=== PATIENT | male | born 1980 | race Caucasian/White ===

== ENCOUNTER 2016-12-31 11:48 | Inpatient (IN) | payer OTHER ==
[2016-12-31 13:33] VITALS: BMI 27.1
--- NOTE | 2016-12-31 16:13 | HP ---
COWS - Scale Resting Pulse: 0= [place] 80 or Below Sweatin=Flushed/Facial Moisture Restless Observation: 3= Extraneous Movement Pupil Size: 2= Moderately Dilated Bone or Joint Aches: 2= Severe Diffuse Aches Runny Nose/ Eye Tearin= Runny Nose/Eyes GI Upset > 30mins: 3= Vomiting/Diarrhea Tremor Observation: 2= Slight Tremor Visible Yawning Observation: 2= >3x During Session Anxiety or Irritability: 2=Irritable/Anxious Goose Flesh Skin: 0=Smooth Skin COWS Score: 20 CIWA Score - CIWA Score Nausea/Vomitin Muscle Tremors: 3 Anxiety: 3 Agitation: 3 Paroxysmal Sweats: 2 Orientation: 0-Oriented Tacttile Disturbances: 2-Mild Itch/Numbness/Burn Auditory Disturbances: 2-Mild Harshness/Frighten Visual Disturbances: 2-Mild Sensitivity Headache: 2-Mild CIWA-Ar Total Score: 22 Admission ROS BHS - HPI Chief Complaint: i need help to stop using heroin,alcohol,xanax and cocaine Allergies/Adverse Reactions: Allergies Allergy/AdvReac Type Severity Reaction Status Date / Time No Known Allergies Allergy Verified 12/31/16 16:14 History of Present Illness: this 36 years old male with heroin,alcohol,xanax,cocaine dependence,seeking help to stop ,last detox in [facility] 11/30 stated not completed,just stay for 1 day kidney stones insomnia nicotine dependence fx of lumbar spine ,fx both jaws longest period of sobriety 1 year Exam Limitations: No Limitations - Ebola screening Have you traveled outside of the country in the last 21 days: No Have you been sick,other than usual withdrawal symptoms: No - Review of Systems Constitutional: Chills, Diaphoresis, Loss of Appetite, Malaise, Night Sweats, Weakness, Unintentional Wgt. Loss EENT: reports: Tearing, Nose Congestion Respiratory: reports: No Symptoms reported Cardiac: reports: Palpitations GI: reports: Diarrhea, Nausea, Vomiting, Abdominal cramping : reports: No Symptoms Reported Musculoskeletal: reports: Joint Pain, Muscle Pain, Joint Stiffness Integumentary: reports: Dryness Endocrine: reports: No Symptoms Reported Hematology: reports: No Symptoms Reported Psychiatric: reports: Judgement Intact, Mood/Affect Appropiate, Orientated x3 ( insomnia), other Patient History - Patient Medical History Hx Anemia: No Hx Asthma: No Hx Chronic Obstructive Pulmonary Disease (COPD): No Hx Cancer: No Hx Cardiac Disorders: No Hx Congestive Heart Failure: No Hx Hypertension: No Hx Hypercholesterolemia: No Hx Pacemaker: No HX Cerebrovascular Accident: No Hx Seizures: No Hx Dementia: No Hx Diabetes: No Hx Gastrointestinal Disorders: No Hx Liver Disease: No Hx Genitourinary Disorders: No Hx Sexually Transmitted Disorders: No Hx Renal Disease (ESRD): No Hx Thyroid Disease: No Hx Human Immunodeficiency Virus (HIV): No (never been tested) Hx Hepatitis C: No Hx Depression: No Hx Suicide Attempt: No Hx Bipolar Disorder: No Hx Schizophrenia: No Other Medical History: no suicidal,no homicidal - Patient Surgical History Past Surgical History: Yes Hx Neurologic Surgery: No Hx Cataract Extraction: No Hx Cardiac Surgery: No Hx Lung Surgery: No Hx Breast Surgery: No Hx Breast Biopsy: No Hx Abdominal Surgery: No Hx Appendectomy: No Hx Cholecystectomy: No Hx Genitourinary Surgery: No Hx Section: No Hx Orthopedic Surgery: No Other Surgical History: bilateral fx of mandible in 2001 - PPD History Previous Implant?: Yes Implanted On Prior [facility] Admission?: Yes Date: 04/04/12 PPD to be Administered?: Yes - Smoking Cessation Smoking history: Current every day smoker Have you smoked in the past 12 months: Yes Aproximately how many cigarettes per day: 40 Hx Chewing Tobacco Use: No Initiated information on smoking cessation: Yes 'Breaking Loose' booklet given: 12/31/16 - Substance & Tx. History Hx Alcohol Use: Yes Hx Substance Use: Yes Substance Use Type: Alcohol, Cocaine, Heroin, Tranquilizers Hx Substance Use Treatment: Yes ([facility] 11/30 not completed) - Substances Abused Heroin Route: Injection Frequency: Daily Amount used: 50 BAGS Age of first use: 30 Date of Last Use: 12/31/16 Alcohol Route: Oral Frequency: Daily Amount used: 1 LITER COGNAC Age of first use: 13 Date of Last Use: 12/30/16 Alprazolam (Xanax) Route: Oral Frequency: Daily Amount used: 4-6MG Age of first use: 34 Date of Last Use: 12/31/16 Cocaine Route: Injection Frequency: Daily Amount used: 1 AND 1/2 GRAM Age of first use: 15 Date of Last Use: 12/30/16 Family Disease History - Family Disease History Family Disease History: Other: Brother (dsa ) Admission Physical Exam [facility] - Vital Signs Vital Signs: Vital Signs - 24 hr 12/31/16 13:29 Temperature 98.4 F Pulse Rate 76 Respiratory 18 Rate Blood Pressure 138/76 - Physical General Appearance: Yes: Moderate Distress, Tremorous, Irritable, Sweating, Anxious HEENTM: Yes: Normal ENT Inspection, LBUNA, Pharynx Normal Respiratory: Yes: Lungs Clear, Normal Breath Sounds, No Respiratory Distress Neck: Yes: Within Normal Limits, Supple, Trachea in good position Breast: Yes: Within Normal Limits Cardiology: Yes: Within Normal Limits, Regular Rhythm, Regular Rate, S1, S2 Abdominal: Yes: Within Normal Limits, Normal Bowel Sounds, Non Tender, Flat, Soft Genitourinary: Yes: Within Normal Limits Back: Yes: Muscle Spasm Musculoskeletal: Yes: full range of Motion, Back pain, Joint Stiffness, Muscle Pain Extremities: Yes: Normal Range of Motion, Tremors Neurological: Yes: honey processor II-XII NML intact, Alert, Motor Strength 5/5, Normal Mood /Affect Integumentary: Yes: Dry, Track Perdue Lymphatic: Yes: Within Normal Limits - Diagnostic (1) Opioid dependence with withdrawal Current Visit: Yes Status: Acute (2) Alcohol dependence with uncomplicated withdrawal Current Visit: Yes Status: Acute (3) Uncomplicated sedative, hypnotic, or anxiolytic withdrawal Current Visit: Yes Status: Acute (4) Cocaine dependence Current Visit: Yes Status: Active (5) s/p surgery of bilateral fx of mandible Current Visit: No Status: Active (6) Low back pain Current Visit: Yes Status: Chronic (7) Closed L5 vertebral fracture Current Visit: Yes Status: Chronic (8) Insomnia Current Visit: Yes Status: Acute (9) Nicotine dependence Current Visit: Yes Status: Acute Cleared for Admission [facility] - Detox or Rehab [facility] Level of Care: Medically Managed Detox Regimen/Protocol: Methadone/Valium [facility] Breath Alcohol Content Breath Alcohol Content: 0 Urine Drug Screen - Results Drug Screen Negative: No Urine Drug Screen Results: JETT-Cocaine, OPI-Opiates, BZO-Benzodiazepines, MTD- Methadone
[2016-12-31] MEDS ORDERED: guaiFENesin/D-METHORPHAN HB 10 ML UNIT-DOSE CUPS PO PRN (16:32)
[2016-12-31] MEDS ORDERED: MENTHOL/PHENOL 1 EACH UD MM PRN (16:32)
[2016-12-31] MEDS ORDERED: MAGNESIUM HYDROX 2400MG/30ML ORAL SUSPENSION 30 ML CUP PO PRN (16:32)
[2016-12-31] MEDS ORDERED: NICOTINE POLACRILEX 2 MG GUM BC PRN (16:32)
[2016-12-31] MEDS ORDERED: hydrOXYzine PAMOATE 50 MG CAPSULE (FP) PO PRN (16:32)
[2016-12-31] MEDS ORDERED: ACETAMINOPHEN 325 MG TABLET (FP) PO PRN (16:32)
[2016-12-31] MEDS ORDERED: IBUPROFEN 400 MG TABLET (FP) PO PRN (16:32)
[2016-12-31] MEDS ORDERED: MAGNESIUM CITRATE 300 ML BOTTLE PO PRN (16:32)
[2016-12-31] MEDS ORDERED: LOPERAMIDE HCL 2 MG CAPSULE PO PRN (16:32)
[2016-12-31] MEDS ORDERED: P-EPHED 60MG/TRIPROLIDI 2.5MG TABLET PO PRN (16:32)
[2016-12-31] MEDS ORDERED: MAG HYDROX/AL HYDROX/SIMETH 30 ML UNIT-DOSE CUP PO PRN (16:32)
[2016-12-31] MEDS ORDERED: METHADONE HCL 10 MG TABLET (FOR DETOX USE ONLY) PO ONE ×2 (17:45→23:00)
[2016-12-31] MEDS ORDERED: diazePAM 5 MG TABLET PO ONE (17:45)
[2016-12-31] MEDS: NICOTINE 21 MG/24 HOURS TOPICAL PATCH TD SCH (18:57)
[2016-12-31 20:00] LABS: URINE APPEARANCE CLEAR; URINE BILIRUBIN NEGATIVE (NEGATIVE); URINE BLOOD NEGATIVE (NEGATIVE); URINE COLOR YELLOW; URINE GLUCOSE (UA) NEGATIVE (NEGATIVE); URINE KETONE NEGATIVE (NEGATIVE); URINE LEUK ESTERASE NEGATIVE (NEGATIVE); URINE NITRITE NEGATIVE (NEGATIVE); URINE PROTEIN NEGATIVE (NEGATIVE); URINE UROBILINOGEN NEGATIVE mg/dL (0.2-1.0)
[2016-12-31] MEDS: THIAMINE HCL 100 MG TABLET (FP) PO SCH (22:36)
[2016-12-31] MEDS: cloNIDine HCL 0.1 MG TABLET PO SCH (22:36)
[2016-12-31] MEDS: diazePAM 5 MG TABLET PO SCH (22:37)
[2016-12-31] MEDS: diphenhydrAMINE HCL 50 MG CAPSULE PO PRN (22:37)
[2017-01-01] MEDS: diazePAM 5 MG TABLET PO SCH ×3 (05:28→22:41)
--- NOTE | 2017-01-01 09:21 | PN ---
S CIWA - CIWA Score Nausea/Vomitin-No Nausea/No Vomiting Muscle Tremors: 4-Moderate,w/Arms Extend Anxiety: 4-Mod. Anxious/Guarded Agitation: 4-Moderately Restless Paroxysmal Sweats: 1-Minimal Palms Moist Orientation: 0-Oriented Tacttile Disturbances: 3-Moderate Itch/Numb/Burn Auditory Disturbances: 0-None Visual Disturbances: 0-None Headache: 0-None Present CIWA-Ar Total Score: 16 S COWS - Scale Resting Pulse: 0= [place] 80 or Below Sweatin= Chills/Flushing Restless Observation: 3= Extraneous Movement Pupil Size: 0= Normal to Room Light Bone or Joint Aches: 4=Acute Joint/Muscle Pain Runny Nose/ Eye Tearin= Nasal Congestion GI Upset > 30mins: 0= None Tremor Observation of Outstretched Hands: 2= Slight Tremor Visible Yawning Observation: 2= >3x During Session Anxiety or Irritability: 2=Irritable/Anxious Goose Flesh Skin: 0=Smooth Skin COWS Score: 15 S Progress Note (SOAP) Subjective: ANXIETY, HOT/COLD CHILLS,TREMORS,YAWNING,INTERMITTENT SLEEP. Objective: 01/01/17 09:20 Vital Signs Temperature 98.4 F 01/01/17 05:47 Pulse Rate 66 01/01/17 05:47 Respiratory Rate 16 01/01/17 05:47 Blood Pressure 106/63 01/01/17 05:47 O2 Sat by Pulse Oximetry (%) Laboratory Last Values Urine Color Yellow 12/31/16 19:15 Urine Appearance Clear 12/31/16 19:15 Urine pH 5.0 (5.0-8.0) 12/31/16 19:15 Ur Specific [place] >= 1.030 (1.005-1.025) H 12/31/16 19:15 Urine Protein Negative (NEGATIVE) 12/31/16 19:15 Urine Glucose (UA) Negative (NEGATIVE) 12/31/16 19:15 Urine Ketones Negative (NEGATIVE) 12/31/16 19:15 Urine Blood Negative (NEGATIVE) 12/31/16 19:15 Urine Nitrite Negative (NEGATIVE) 12/31/16 19:15 Urine Bilirubin Negative (NEGATIVE) 12/31/16 19:15 Urine Urobilinogen Negative mg/dL (0.2-1.0) 12/31/16 19:15 Ur Leukocyte Esterase Negative (NEGATIVE) 12/31/16 19:15 OTHER LAB RESULTS PENDING Assessment: 01/01/17 09:21 WITHDRAWAL SX Plan: CONTINUE DETOX
[2017-01-01] MEDS ORDERED: METHADONE HCL 10 MG TABLET (FOR DETOX USE ONLY) PO SCH (10:00)
[2017-01-01] MEDS: diazePAM 5 MG TABLET PO PRN ×2 (10:05→18:18)
[2017-01-01] MEDS: PRENATAL VITAMINS W/ FOLIC ACID TABLET (FP) PO SCH (10:05)
[2017-01-01] MEDS: cloNIDine HCL 0.1 MG TABLET PO SCH ×2 (10:05→22:41)
[2017-01-01] MEDS: CYCLOBENZAPRINE HCL 10 MG TABLET (FP) PO PRN ×2 (10:05→22:41)
[2017-01-01] MEDS: NICOTINE 21 MG/24 HOURS TOPICAL PATCH TD SCH (10:06)
[2017-01-01 10:32] LABS: MCH 30.3 pg (25.7-33.7); MCHC 33.8 g/dl (32.0-35.9); MEAN CELL VOLUME 89.7 fl (80-96); PLATELET COUNT 240 K/MM3 (134-434); RDW 12.6 % (11.9-15.9); WHITE BLOOD COUNT 7.2 K/mm3 (4.0-10.0)
[2017-01-01 10:41] LABS: ALBUMIN 3.4 g/dl (3.4-5.0); ALK PHOS 62 U/L (45-117); ANION GAP 7 (8-16); BILIRUBIN,TOTAL 0.3 mg/dL (0.2-1.0); CALCIUM 9.1 mg/dL (8.5-10.1); CO2 28 mmol/L (21-32); CREATININE 0.7 mg/dL (0.7-1.3); GLUCOSE,RANDOM 101 mg/dL (74-106); SGOT/AST 44 U/L (15-37); SGPT/ALT 74 U/L (12-78); TOT PROT 7.1 g/dl (6.4-8.2)
--- NOTE | 2017-01-01 11:05 | CONSULT ---
[facility] Psychiatric Consult - Data Date of interview: 01/01/17 Admission source: [facility] Identifying data: Readmission to [facility] for this 36 y/o male seeking detox treatment [place] [address] for heroin,alcohol,benzodiazepines,cocaine and nicotine dependence (3 packs of cigarettes daily).Patient is single without children,domiciled,unemployed and reportedly deprived of any means of support. Substance Abuse History: Patient admits to heavy use of heroin (5 bundles)/ cocaine 1 (gm),on a daily basis, via the intravenous route since age 30.Still uses xanax daily (6 sticks/day) since age 12.Last used substances on 12/31/16. Medical History: Patient reports good general health.Noted distant history of orthosurgery for bilateral fracture of mandibles (2001). Psychiatric History: Patient denies. Physical/Sexual Abuse/Trauma History: Patient denies. Additional Comment: Urine Drug Screen Results: JETT-Cocaine, OPI-Opiates, BZO- Benzodiazepines, MTD-Methadone.Noted from [facility] report. Mental Status Exam - Mental Status Exam Alert and Oriented to: Time, Place, Person Cognitive Function: Good Patient Appearance: Unkempt, Disheveled Mood: Withdrawn, Irritable Affect: Mood Congruent Patient Behavior: Passive, Fatigued, Guarded Speech Pattern: Clear (non spontaneous) Voice Loudness: Normal Thought Process: Goal Oriented Thought Disorder: Not Present Hallucinations: Denies Suicidal Ideation: Denies Homicidal Ideation: Denies Insight/Judgement: Poor Sleep: Fair Appetite: Good Muscle strength/Tone: Normal Gait/Station: Normal Psychiatric Findings - Problem List ([place] 1, 2,3) (1) Alcohol dependence with uncomplicated withdrawal Current Visit: Yes Status: Acute (2) Opioid dependence with withdrawal Current Visit: Yes Status: Acute (3) Uncomplicated sedative, hypnotic, or anxiolytic withdrawal Current Visit: Yes Status: Acute (4) Cocaine dependence Current Visit: Yes Status: Active (5) Nicotine dependence Current Visit: Yes Status: Acute (6) Closed L5 vertebral fracture Current Visit: Yes Status: Chronic (7) Low back pain Current Visit: Yes Status: Chronic - Initial Treatment Plan Initial Treatment Plan: Psychoeducation is not welcome by the patient.[facility] report reviewed.Detoxification is in progress.Observation.
--- NOTE | 2017-01-01 11:11 | EKG ---
Test Reason : Blood Pressure : / mmHG Vent. Rate : 066 BPM Atrial Rate : 066 BPM P-R Int : 168 ms QRS Dur : 090 ms QT Int : 402 ms P-R-T Axes : 060 032 029 degrees QTc Int : 421 ms NORMAL SINUS RHYTHM NORMAL ECG NO PREVIOUS ECGS AVAILABLE Confirmed by MARGOTH HIRSCH, MAIKOL ([id number]) on 01/01/2017 11:11:40 AM Referred By: Confirmed By:MAIKOL JUSTIN MD
[2017-01-01 14:14] LABS: HIV 1 & 2 AB NEGATIVE; HIV 1 AGp24 NEGATIVE
[2017-01-01] MEDS: THIAMINE HCL 100 MG TABLET (FP) PO SCH (22:40)
[2017-01-01] MEDS: diphenhydrAMINE HCL 50 MG CAPSULE PO PRN (22:41)
[2017-01-02] MEDS: diazePAM 5 MG TABLET PO PRN ×2 (05:43→12:57)
--- NOTE | 2017-01-02 09:50 | PN ---
[facility] CIWA - CIWA Score Nausea/Vomitin-No Nausea/No Vomiting Muscle Tremors: 4-Moderate,w/Arms Extend Anxiety: 4-Mod. Anxious/Guarded Agitation: 4-Moderately Restless Paroxysmal Sweats: 1-Minimal Palms Moist Orientation: 0-Oriented Tacttile Disturbances: 3-Moderate Itch/Numb/Burn Auditory Disturbances: 0-None Visual Disturbances: 0-None Headache: 0-None Present CIWA-Ar Total Score: 16 BHS COWS - Scale Resting Pulse: 0= [place] 80 or Below Sweatin= Chills/Flushing Restless Observation: 3= Extraneous Movement Pupil Size: 2= Moderately Dilated Bone or Joint Aches: 4=Acute Joint/Muscle Pain Runny Nose/ Eye Tearin= Nasal Congestion GI Upset > 30mins: 0= None Tremor Observation of Outstretched Hands: 1= Tremor [place], Not Seen Yawning Observation: 1= 1-2x During Session Anxiety or Irritability: 2=Irritable/Anxious Goose Flesh Skin: 0=Smooth Skin COWS Score: 15 S Progress Note (SOAP) Subjective: ANXIETY,IRRITABILITY,SWEATS,FATIGUE. Objective: 01/02/17 09:49 Vital Signs Temperature 98.1 F 01/02/17 09:19 Pulse Rate 65 01/02/17 09:19 Respiratory Rate 18 01/02/17 09:19 Blood Pressure 117/75 01/02/17 09:19 O2 Sat by Pulse Oximetry (%) Laboratory Last Values WBC 7.2 K/mm3 (4.0-10.0) 01/01/17 06:30 RBC 4.51 M/mm3 (4.00-5.60) 01/01/17 06:30 Hgb 13.7 GM/dL (11.7-16.9) 01/01/17 06:30 Hct 40.4 % (35.4-49) 01/01/17 06:30 MCV 89.7 fl (80-96) 01/01/17 06:30 MCH 30.3 pg (25.7-33.7) 01/01/17 06:30 MCHC 33.8 g/dl (32.0-35.9) 01/01/17 06:30 RDW 12.6 % (11.9-15.9) 01/01/17 06:30 Plt Count 240 K/MM3 (134-434) 01/01/17 06:30 MPV 8.0 fl (7.5-11.1) 01/01/17 06:30 Sodium 139 mmol/L (136-145) 01/01/17 06:30 Potassium 4.2 mmol/L (3.5-5.1) 01/01/17 06:30 Chloride 104 mmol/L (98-107) 01/01/17 06:30 Carbon Dioxide 28 mmol/L (21-32) 01/01/17 06:30 Anion Gap 7 (8-16) L 01/01/17 06:30 BUN 16 mg/dL (7-18) D 01/01/17 06:30 Creatinine 0.7 mg/dL (0.7-1.3) D 01/01/17 06:30 Creat Clearance w eGFR > 60 (>60) 01/01/17 06:30 Random Glucose 101 mg/dL (74-106) 01/01/17 06:30 Calcium 9.1 mg/dL (8.5-10.1) 01/01/17 06:30 Total Bilirubin 0.3 mg/dL (0.2-1.0) D 01/01/17 06:30 AST 44 U/L (15-37) H D 01/01/17 06:30 ALT 74 U/L (12-78) D 01/01/17 06:30 Alkaline Phosphatase 62 U/L (45-117) 01/01/17 06:30 Total Protein 7.1 g/dl (6.4-8.2) 01/01/17 06:30 Albumin 3.4 g/dl (3.4-5.0) 01/01/17 06:30 Urine Color Yellow 12/31/16 19:15 Urine Appearance Clear 12/31/16 19:15 Urine pH 5.0 (5.0-8.0) 12/31/16 19:15 Ur Specific [place] >= 1.030 (1.005-1.025) H 12/31/16 19:15 Urine Protein Negative (NEGATIVE) 12/31/16 19:15 Urine Glucose (UA) Negative (NEGATIVE) 12/31/16 19:15 Urine Ketones Negative (NEGATIVE) 12/31/16 19:15 Urine Blood Negative (NEGATIVE) 07/18/17 19:15 Urine Nitrite Negative (NEGATIVE) 12/31/16 19:15 Urine Bilirubin Negative (NEGATIVE) 12/31/16 19:15 Urine Urobilinogen Negative mg/dL (0.2-1.0) 12/31/16 19:15 Ur Leukocyte Esterase Negative (NEGATIVE) 12/31/16 19:15 RPR Titer Nonreactive (NONREACTIVE) 01/01/17 06:30 HIV 1&2 Antibody Screen Negative 01/01/17 06:30 HIV P24 Antigen Negative 01/01/17 06:30 Assessment: 01/02/17 09:49 WITHDRAWAL SX Plan: CONTINUE DETOX
[2017-01-02] MEDS ORDERED: METHADONE HCL 5 MG TABLET (FOR DETOX USE ONLY) PO SCH (10:00)
[2017-01-02] MEDS ORDERED: diazePAM 5 MG TABLET PO SCH (10:00)
[2017-01-02] MEDS: cloNIDine HCL 0.1 MG TABLET PO SCH (10:46)
[2017-01-02] MEDS: PRENATAL VITAMINS W/ FOLIC ACID TABLET (FP) PO SCH (10:46)
[2017-01-02] MEDS: NICOTINE 21 MG/24 HOURS TOPICAL PATCH TD SCH (10:47)
[2017-01-02] MEDS: CYCLOBENZAPRINE HCL 10 MG TABLET (FP) PO PRN (10:50)
[2017-01-02 13:58] VITALS: BP 123/70; PULSE 70; TEMP 98.5
--- NOTE | 2017-01-02 14:47 | DS ---
[facility] Detox Discharge Summary Admission Date: 12/31/16 Discharge Date: 01/02/17 - History Present History: Alcohol Dependence, Opioid Dependence, Sedative Dependence Additional Comments: PT DECLINED TO CONTINUE WITH DETOX STATING "I HAVE A COAT DATE TODAY AT 5 PM. I JUST REALIZED. I'VE GOT TO GO". STAFF UNAWARE OF PT'S PLANNED APPOINTMENT AND APPEARS TO BE IN A HURRY TO MEET UP WITH COURT SCHEDULE. ALERT O X 3. NAD. Pertinent Past History: UNREMARKABLE - Physical Exam Results Vital Signs: Vital Signs Temperature 98.5 F 01/02/17 13:57 Pulse Rate 70 01/02/17 13:57 Respiratory Rate 18 01/02/17 13:57 Blood Pressure 123/70 01/02/17 13:57 O2 Sat by Pulse Oximetry (%) Pertinent Admission Physical Exam Findings: WITHDRAWAL SX Laboratory Last Values WBC 7.2 K/mm3 (4.0-10.0) 01/01/17 06:30 RBC 4.51 M/mm3 (4.00-5.60) 01/01/17 06:30 Hgb 13.7 GM/dL (11.7-16.9) 01/01/17 06:30 Hct 40.4 % (35.4-49) 01/01/17 06:30 MCV 89.7 fl (80-96) 01/01/17 06:30 MCH 30.3 pg (25.7-33.7) 01/01/17 06:30 MCHC 33.8 g/dl (32.0-35.9) 01/01/17 06:30 RDW 12.6 % (11.9-15.9) 01/01/17 06:30 Plt Count 240 K/MM3 (134-434) 01/01/17 06:30 MPV 8.0 fl (7.5-11.1) 01/01/17 06:30 Sodium 139 mmol/L (136-145) 01/01/17 06:30 Potassium 4.2 mmol/L (3.5-5.1) 01/01/17 06:30 Chloride 104 mmol/L (98-107) 01/01/17 06:30 Carbon Dioxide 28 mmol/L (21-32) 01/01/17 06:30 Anion Gap 7 (8-16) L 01/01/17 06:30 BUN 16 mg/dL (7-18) D 01/01/17 06:30 Creatinine 0.7 mg/dL (0.7-1.3) D 01/01/17 06:30 Creat Clearance w eGFR > 60 (>60) 01/01/17 06:30 Random Glucose 101 mg/dL (74-106) 01/01/17 06:30 Calcium 9.1 mg/dL (8.5-10.1) 01/01/17 06:30 Total Bilirubin 0.3 mg/dL (0.2-1.0) D 01/01/17 06:30 AST 44 U/L (15-37) H D 01/01/17 06:30 ALT 74 U/L (12-78) D 01/01/17 06:30 Alkaline Phosphatase 62 U/L (45-117) 01/01/17 06:30 Total Protein 7.1 g/dl (6.4-8.2) 01/01/17 06:30 Albumin 3.4 g/dl (3.4-5.0) 01/01/17 06:30 Urine Color Yellow 12/31/16 19:15 Urine Appearance Clear 12/31/16 19:15 Urine pH 5.0 (5.0-8.0) 12/31/16 19:15 Ur Specific [place] >= 1.030 (1.005-1.025) H 12/31/16 19:15 Urine Protein Negative (NEGATIVE) 12/31/16 19:15 Urine Glucose (UA) Negative (NEGATIVE) 12/31/16 19:15 Urine Ketones Negative (NEGATIVE) 12/31/16 19:15 Urine Blood Negative (NEGATIVE) 12/31/16 19:15 Urine Nitrite Negative (NEGATIVE) 12/31/16 19:15 Urine Bilirubin Negative (NEGATIVE) 12/31/16 19:15 Urine Urobilinogen Negative mg/dL (0.2-1.0) 12/31/16 19:15 Ur Leukocyte Esterase Negative (NEGATIVE) 12/31/16 19:15 RPR Titer Nonreactive (NONREACTIVE) 01/01/17 06:30 HIV 1&2 Antibody Screen Negative 01/01/17 06:30 HIV P24 Antigen Negative 01/01/17 06:30 - Treatment Hospital Course: Discharged Condition Good - Medication Discharge Medications: Ambulatory Orders NK [No Known Home Medication] 12/31/16 - Diagnosis (1) Alcohol dependence with uncomplicated withdrawal Status: Acute (2) Nicotine dependence Status: Acute (3) Opioid dependence with withdrawal Status: Acute (4) Uncomplicated sedative, hypnotic, or anxiolytic withdrawal Status: Acute - AMA Did Patient Leave Against Medical Advice: Yes (AMA)
[2017-01-04] MEDS ORDERED: diazePAM 5 MG TABLET PO SCH (10:00)
[2017-01-04] MEDS ORDERED: METHADONE HCL 10 MG TABLET (FOR DETOX USE ONLY) PO SCH (10:00)
[2017-01-05] MEDS ORDERED: METHADONE HCL 5 MG TABLET (FOR DETOX USE ONLY) PO SCH (06:00)
== END 2017-01-02 14:19 | disposition left against medical advice (07) | DRG 770 ==
LOC: YASAS 11:48 → Y3N 17:09
PROVIDERS: ADMIT Internal Medicine Addiction Medicine; ATTEND Internal Medicine Addiction Medicine
PROC: HZ2ZZZZ Detoxification Services for Substance Abuse Treatment (ICD-10-PCS; principal; 2017-01-02)
DX: F11.23 Opioid dependence with withdrawal (principal); F13.230 Sedative, hypnotic or anxiolytic dependence with withdrawal, uncomplicated; F10.230 Alcohol dependence with withdrawal, uncomplicated; F14.20 Cocaine dependence, uncomplicated; F17.210 Nicotine dependence, cigarettes, uncomplicated; G47.00 Insomnia, unspecified; M54.5 Low back pain
CPT/HCPCS: 36415; 80053; 81003; 85027; 86593; 87389; 93005; 93010

== ENCOUNTER 2017-08-05 20:36 | Inpatient (IN) | payer OTHER ==
[2017-08-05 22:53] VITALS: BMI 27.1
--- NOTE | 2017-08-06 00:15 | HP ---
COWS - Scale Resting Pulse: 1= [place] 81-100 Sweatin=Flushed/Facial Moisture Restless Observation: 0= Sits Still Pupil Size: 1= Pupils >than Normal Bone or Joint Aches: 4=Acute Joint/Muscle Pain Runny Nose/ Eye Tearin= Runny Nose/Eyes GI Upset > 30mins: 1= Stomach Cramp Tremor Observation: 2= Slight Tremor Visible Yawning Observation: 0= None Anxiety or Irritability: 4=Extreme Anxiety Goose Flesh Skin: 0=Smooth Skin COWS Score: 17 CIWA Score - CIWA Score Nausea/Vomitin Muscle Tremors: 4-Moderate,w/Arms Extend Anxiety: 4-Mod. Anxious/Guarded Agitation: 4-Moderately Restless Paroxysmal Sweats: 1-Minimal Palms Moist Orientation: 0-Oriented Tacttile Disturbances: 0-None Auditory Disturbances: 0-None Visual Disturbances: 0-None Headache: 3-Moderate CIWA-Ar Total Score: 19 Admission ROS BHS - HPI Chief Complaint: Withdrawal symptoms Allergies/Adverse Reactions: Allergies Allergy/AdvReac Type Severity Reaction Status Date / Time No Known Allergies Allergy Verified 08/04/17 19:22 History of Present Illness: 37 years old male with a long history of opioid and alcohol dependence is admitted to detox. Patient has been in previous detox and reports 18 months of sobriety. Patient has past medical history of genital warts, anxiety and depression. He denies suicidal ideation at this time. Exam Limitations: No Limitations - Ebola screening Have you traveled outside of the country in the last 21 days: No Have you had contact with anyone from an Ebola affected area: No Have you been sick,other than usual withdrawal symptoms: No Do you have a fever: No - Review of Systems Constitutional: Chills, Loss of Appetite, Malaise, Night Sweats, Changes in sleep, Unexplained wgt Loss (reports 30 lbs loss) EENT: reports: Nose Congestion, Sinus Pressure Respiratory: reports: No Symptoms reported Cardiac: reports: No Symptoms Reported GI: reports: Nausea, Poor Appetite, Poor Fluid Intake, Abdominal cramping : reports: No Symptoms Reported Musculoskeletal: reports: Back Pain, Muscle Pain, Muscle Weakness Integumentary: reports: Dryness, Flushing Neuro: reports: Headache, Tingling, Tremors Endocrine: reports: No Symptoms Reported Hematology: reports: No Symptoms Reported Psychiatric: reports: Orientated x3, Agitated, Anxious, Depressed Other Systems: Reviewed and Negative Patient History - Patient Medical History Hx Anemia: No Hx Asthma: No Hx Chronic Obstructive Pulmonary Disease (COPD): No Hx Cancer: No Hx Cardiac Disorders: No Hx Congestive Heart Failure: No Hx Hypertension: No Hx Hypercholesterolemia: No Hx Pacemaker: No HX Cerebrovascular Accident: No Hx Seizures: No Hx Dementia: No Hx Diabetes: No Hx Gastrointestinal Disorders: No Hx Liver Disease: No Hx Genitourinary Disorders: No Hx Sexually Transmitted Disorders: Yes (genital warts ) Hx Renal Disease (ESRD): No Hx Thyroid Disease: No Hx Human Immunodeficiency Virus (HIV): No Hx Hepatitis C: No Hx Depression: No Hx Suicide Attempt: Yes (Denies suicidal ideation at this time) Hx Bipolar Disorder: No Hx Schizophrenia: No - Patient Surgical History Past Surgical History: Yes Hx Neurologic Surgery: No Hx Cataract Extraction: No Hx Cardiac Surgery: No Hx Lung Surgery: No Hx Abdominal Surgery: No Hx Appendectomy: No Hx Cholecystectomy: No Hx Genitourinary Surgery: No Hx Orthopedic Surgery: No Other Surgical History: bilateral fx of mandible in 2001 Anesthesia Reaction: No - PPD History Previous Implant?: Yes Implanted On Prior [facility] Admission?: Yes Date: 04/04/12 PPD to be Administered?: Yes - Reproductive History Patient is a Female of Child Bearing Age (11 -55 yrs old): No (Male) - Smoking Cessation Smoking history: Current every day smoker Have you smoked in the past 12 months: Yes Aproximately how many cigarettes per day: 40 Hx Chewing Tobacco Use: No Initiated information on smoking cessation: Yes 'Breaking Loose' booklet given: 08/06/17 Family Disease History - Family Disease History Family History: Denies Admission Physical Exam [facility] - Vital Signs Vital Signs: Vital Signs - 24 hr 08/05/17 22:51 Temperature 97.8 F Pulse Rate 81 Respiratory 18 Rate Blood Pressure 174/100 - Physical General Appearance: Yes: Moderate Distress, Tremorous, Irritable, Sweating, Anxious HEENTM: Yes: EOMI, Normal Voice, LUBNA, Nasal Congestion Respiratory: Yes: Lungs Clear, Normal Breath Sounds, No Respiratory Distress Neck: Yes: Supple Breast: Yes: Breast Exam Deferred Cardiology: Yes: Regular Rhythm, Regular Rate, S1, S2 Abdominal: Yes: Normal Bowel Sounds, Soft Genitourinary: Yes: Within Normal Limits Back: Yes: Within Normal Limits Musculoskeletal: Yes: Back pain, Muscle Pain, Muscle weakness Extremities: Yes: Tremors Neurological: Yes: Alert, Normal Mood/Affect Integumentary: Yes: Dry, Track Perdue (both arm s) Lymphatic: Yes: Within Normal Limits - Diagnostic (1) Anxiety Current Visit: Yes Status: Chronic (2) Depression Current Visit: Yes Status: Chronic Qualifiers: Major depression episode severity: unspecified (3) Alcohol dependence with uncomplicated withdrawal Current Visit: Yes Status: Chronic (4) Cocaine dependence Current Visit: Yes Status: Chronic (5) Opioid dependence with withdrawal Current Visit: Yes Status: Chronic (6) Nicotine dependence Current Visit: Yes Status: Chronic Qualifiers: Nicotine product type: cigarettes Substance use status: in withdrawal Qualified Code(s): F17.213 - Nicotine dependence, cigarettes, with withdrawal (7) Low back pain Current Visit: Yes Status: Chronic Cleared for Admission [facility] - Detox or Rehab [facility] Level of Care: Medically Managed Detox Regimen/Protocol: Methadone/Valium S Breath Alcohol Content Breath Alcohol Content: 0 Urine Drug Screen - Results Drug Screen Negative: Yes Urine Drug Screen Results: JETT-Cocaine, OPI-Opiates, BZO-Benzodiazepines, OXY- Oxycodone
[2017-08-06] MEDS ORDERED: MENTHOL/PHENOL 1 EACH UD MM PRN (00:36)
[2017-08-06] MEDS ORDERED: ACETAMINOPHEN 325 MG TABLET (FP) PO PRN (00:36)
[2017-08-06] MEDS ORDERED: LOPERAMIDE HCL 2 MG CAPSULE PO PRN (00:36)
[2017-08-06] MEDS ORDERED: P-EPHED 60MG/TRIPROLIDI 2.5MG TABLET PO PRN (00:36)
[2017-08-06] MEDS ORDERED: METHADONE HCL 10 MG TABLET (FOR DETOX USE ONLY) PO ONE ×2 (00:36→23:00)
[2017-08-06] MEDS ORDERED: guaiFENesin/D-METHORPHAN HB 10 ML UNIT-DOSE CUPS PO PRN (00:36)
[2017-08-06] MEDS ORDERED: MAGNESIUM CITRATE 300 ML BOTTLE PO PRN (00:36)
[2017-08-06] MEDS ORDERED: diazePAM 5 MG TABLET PO ONE (00:36)
[2017-08-06] MEDS ORDERED: MAGNESIUM HYDROX 2400MG/30ML ORAL SUSPENSION 30 ML CUP PO PRN (00:36)
[2017-08-06] MEDS ORDERED: MAG HYDROX/AL HYDROX/SIMETH 30 ML UNIT-DOSE CUP PO PRN (00:36)
[2017-08-06] MEDS: IBUPROFEN 400 MG TABLET (FP) PO PRN ×2 (02:26→17:50)
[2017-08-06] MEDS: diazePAM 5 MG TABLET PO SCH ×3 (05:43→22:21)
[2017-08-06] MEDS: PRENATAL VITAMINS W/ FOLIC ACID TABLET (FP) PO SCH (10:25)
[2017-08-06] MEDS: NICOTINE 14 MG/24 HOURS TOPICAL PATCH TD SCH (10:25)
[2017-08-06] MEDS: METHADONE HCL 10 MG TABLET (FOR DETOX USE ONLY) PO ONE ×2 (10:25→10:51)
--- NOTE | 2017-08-06 10:28 | PN ---
S Progress Note Note: PT WAS ADMITTED EARLIER TODAY. ALERT O X 3. SEEN LAYING IN BED AT ROUNDS. VERBALLY RESPONSIVE BUT SLIGHTLY TIRED IN APPEARANCE. C/O NAUSEA. VOMITING,DIARRHEA AND TREMORS. Vital Signs Temperature 97.6 F 08/06/17 05:49 Pulse Rate 58 L 08/06/17 05:49 Respiratory Rate 18 08/06/17 05:49 Blood Pressure 125/72 08/06/17 05:49 O2 Sat by Pulse Oximetry (%) INCREASE PO FLUIDS. CONTINUE DETOX PROTOCOL
[2017-08-06 10:40] LABS: HEMATOCRIT 37.8 % (35.4-49); HEMOGLOBIN 12.6 GM/dL (11.7-16.9); MCH 28.7 pg (25.7-33.7); MCHC 33.2 g/dl (32.0-35.9); MEAN CELL VOLUME 86.4 fl (80-96); MEAN PLT VOLUME 7.4 fl (7.5-11.1); PLATELET COUNT 256 K/MM3 (134-434); RBC 4.38 M/mm3 (4.00-5.60); RDW 13.2 % (11.9-15.9); WHITE BLOOD COUNT 8.1 K/mm3 (4.0-10.0)
[2017-08-06 11:04] LABS: CHLORIDE 101 mmol/L (98-107); POTASSIUM 3.5 mmol/L (3.5-5.1); SODIUM 140 mmol/L (136-145)
[2017-08-06 11:12] LABS: ALBUMIN 3.6 g/dl (3.4-5.0); ALK PHOS 61 U/L (45-117); ANION GAP 9 (8-16); BILIRUBIN,TOTAL 0.5 mg/dL (0.2-1.0); BLOOD UREA NITROGEN 19 mg/dL (7-18); CALCIUM 9.4 mg/dL (8.5-10.1); CO2 30 mmol/L (21-32); CREATININE 0.8 mg/dL (0.7-1.3); GLUCOSE,RANDOM 77 mg/dL (74-106); SGOT/AST 34 U/L (15-37); SGPT/ALT 53 U/L (12-78); TOT PROT 7.5 g/dl (6.4-8.2)
[2017-08-06] MEDS ORDERED: FLU VACCINE QUAD 60 MCG/0.5 ML (MDV 17-18) IM ONE (12:00)
--- NOTE | 2017-08-06 13:04 | CONSULT ---
[facility] Psychiatric Consult - Data Date of interview: 08/06/17 Admission source: [facility] Identifying data: Readmission to [facility] [place] [facility] for this 36 y/o male from [place] descent,seeking detox treatment,on 3 for heroin,alcohol,xanax, cocaine and nicotine dependence.Patient is single without children,domiciled, unemployed and reportedly supported by friends/relatives. Substance Abuse History: Discussed wiith patient in this session.Mr Alexandre confirmed current [facility] report on his addictions.See details. Smoking history: Current every day smoker. Have you smoked in the past 12 months: Yes. Aproximately how many cigarettes per day: 40. Hx Chewing Tobacco Use: No. Initiated information on smoking cessation: Yes. 'Breaking Loose' booklet given : 08/04/17. - Substance & Tx. History. Hx Alcohol Use: Yes. Hx Substance Use : Yes. Substance Use Type: Alcohol, Cocaine, Heroin, Tranquilizers. Hx Substance Use Treatment: Yes ([facility] December 2016). - Substances Abused. Alcohol. Route: Oral. Frequency: Daily. Amount used: 1 gallon. Age of first use: 14. Date of Last Use: 08/03/17. Alprazolam (Xanax). Route: Oral. Frequency: Daily. Amount used: 15 pills. Age of first use: 35. Date of Last Use: 08/04/17. Heroin. Route: Injection. Frequency: Daily. Amount used: 5 bundles. Age of first use: 36. Date of Last Use: 08/04/17 Medical History: Patient denies medical problems.Noted history of treatment for genital warts and orthosurgery for bilateral fracture of mandibles (2001). Psychiatric History: Patient denies. Physical/Sexual Abuse/Trauma History: No reported history of abuse. Additional Comment: Urine Drug Screen Results: JETT-Cocaine, OPI-Opiates, BZO- Benzodiazepines, OXY-Oxycodone.Noted. Mental Status Exam - Mental Status Exam Alert and Oriented to: Time, Place, Person Cognitive Function: Good Patient Appearance: Unkempt, Disheveled Mood: Withdrawn Affect: Appropriate, Normal Range Patient Behavior: Fatigued, Appropriate, Cooperative Speech Pattern: Clear, Appropriate Voice Loudness: Normal Thought Process: Intact, Goal Oriented Thought Disorder: Not Present Hallucinations: Denies Suicidal Ideation: Denies Homicidal Ideation: Denies Insight/Judgement: Poor Sleep: Poorly, Difficulty falling asleep Appetite: Good Muscle strength/Tone: Normal Gait/Station: Normal Psychiatric Findings - Problem List ([place] 1, 2,3) (1) Opioid dependence with withdrawal Current Visit: Yes Status: Acute (2) Uncomplicated sedative, hypnotic, or anxiolytic withdrawal Current Visit: Yes Status: Acute (3) Alcohol dependence with uncomplicated withdrawal Current Visit: Yes Status: Acute (4) Cocaine dependence Current Visit: Yes Status: Acute (5) Nicotine dependence Current Visit: Yes Status: Acute Qualifiers: Nicotine product type: cigarettes Substance use status: in withdrawal Qualified Code(s): F17.213 - Nicotine dependence, cigarettes, with withdrawal (6) Substance induced mood disorder Current Visit: Yes Status: Acute (7) Insomnia Current Visit: Yes Status: Acute - Initial Treatment Plan Initial Treatment Plan: Psychoeducation.Sleep hygiene.Detoxification in progress.Ambien 10 mg po hs prn.Risk of parasomnias discussed with the patient.Mr Lombardi consented (verbally) to this careplan.Observation.
--- NOTE | 2017-08-06 17:12 | EKG ---
Test Reason : Blood Pressure : / mmHG Vent. Rate : 059 BPM Atrial Rate : 059 BPM P-R Int : 160 ms QRS Dur : 102 ms QT Int : 448 ms P-R-T Axes : 047 045 027 degrees QTc Int : 443 ms SINUS BRADYCARDIA OTHERWISE NORMAL ECG WHEN COMPARED WITH ECG OF 06-AUG-2017 01:59, NO SIGNIFICANT CHANGE WAS FOUND Confirmed by DAVID RICHARDS MD ([id number]) on 08/06/2017 5:11:51 PM Referred By: Confirmed By:DAVID RICHARDS MD
[2017-08-06] MEDS: diazePAM 5 MG TABLET PO PRN (17:51)
[2017-08-06] MEDS: NICOTINE POLACRILEX 2 MG GUM BC PRN (17:53)
[2017-08-06] MEDS ORDERED: ZOLPIDEM TARTRATE 10 MG TABLET (PARK CARE ONLY) PO PRN (22:00)
[2017-08-06] MEDS ORDERED: THIAMINE HCL 100 MG TABLET (FP) PO SCH (22:00)
[2017-08-07] MEDS: diazePAM 5 MG TABLET PO SCH (05:33)
[2017-08-07] MEDS: NICOTINE POLACRILEX 2 MG GUM BC PRN (05:34)
[2017-08-07 09:31] VITALS: BP 127/74; PULSE 75; TEMP 97.2
[2017-08-07] MEDS ORDERED: METHADONE HCL 10 MG TABLET (FOR DETOX USE ONLY) PO SCH (10:00)
[2017-08-07] MEDS: PRENATAL VITAMINS W/ FOLIC ACID TABLET (FP) PO SCH (10:20)
[2017-08-07] MEDS: NICOTINE 14 MG/24 HOURS TOPICAL PATCH TD SCH (10:21)
[2017-08-07] MEDS: diazePAM 5 MG TABLET PO PRN (10:21)
--- NOTE | 2017-08-07 13:52 | DS ---
[facility] Detox Discharge Summary Admission Date: 08/05/17 Discharge Date: 08/07/17 - History Present History: Cocaine Dependence, Opioid Dependence, Sedative Dependence Additional Comments: PT SIGNED OUT AMA FOR PERSONAL REASONS STATING HE WANTS TO LEAVE TO GET A HAIR CUT. ALERT O X 3. NAD. Pertinent Past History: SEE DX BELOW - Physical Exam Results Vital Signs: Vital Signs Temperature 97.2 F L 08/07/17 09:31 Pulse Rate 75 08/07/17 09:31 Respiratory Rate 18 08/07/17 09:31 Blood Pressure 127/74 08/07/17 09:31 O2 Sat by Pulse Oximetry (%) Pertinent Admission Physical Exam Findings: WITHDRAWAL SX Laboratory Last Values WBC 8.1 K/mm3 (4.0-10.0) 08/06/17 08:00 RBC 4.38 M/mm3 (4.00-5.60) 08/06/17 08:00 Hgb 12.6 GM/dL (11.7-16.9) 08/06/17 08:00 Hct 37.8 % (35.4-49) 08/06/17 08:00 MCV 86.4 fl (80-96) 08/06/17 08:00 MCH 28.7 pg (25.7-33.7) 08/06/17 08:00 MCHC 33.2 g/dl (32.0-35.9) 08/06/17 08:00 RDW 13.2 % (11.9-15.9) 08/06/17 08:00 Plt Count 256 K/MM3 (134-434) 08/06/17 08:00 MPV 7.4 fl (7.5-11.1) L 08/06/17 08:00 Sodium 140 mmol/L (136-145) 08/06/17 08:00 Potassium 3.5 mmol/L (3.5-5.1) 08/06/17 08:00 Chloride 101 mmol/L (98-107) 08/06/17 08:00 Carbon Dioxide 30 mmol/L (21-32) 08/06/17 08:00 Anion Gap 9 (8-16) 08/06/17 08:00 BUN 19 mg/dL (7-18) H 08/06/17 08:00 Creatinine 0.8 mg/dL (0.7-1.3) 08/06/17 08:00 Creat Clearance w eGFR > 60 (>60) 08/06/17 08:00 Random Glucose 77 mg/dL (74-106) D 08/06/17 08:00 Calcium 9.4 mg/dL (8.5-10.1) 08/06/17 08:00 Total Bilirubin 0.5 mg/dL (0.2-1.0) D 08/06/17 08:00 AST 34 U/L (15-37) D 08/06/17 08:00 ALT 53 U/L (12-78) D 08/06/17 08:00 Alkaline Phosphatase 61 U/L (45-117) 08/06/17 08:00 Total Protein 7.5 g/dl (6.4-8.2) 08/06/17 08:00 Albumin 3.6 g/dl (3.4-5.0) 08/06/17 08:00 RPR Titer Nonreactive (NONREACTIVE) 08/06/17 08:00 - Treatment Hospital Course: Discharged Condition Good - Medication Discharge Medications: Ambulatory Orders NK [No Known Home Medication] 12/31/16 - Diagnosis (1) Opioid dependence with withdrawal Status: Acute (2) Uncomplicated sedative, hypnotic, or anxiolytic withdrawal Status: Acute (3) Nicotine dependence Status: Acute Qualifiers: Nicotine product type: cigarettes Substance use status: in withdrawal Qualified Code(s): F17.213 - Nicotine dependence, cigarettes, with withdrawal (4) Cocaine dependence, uncomplicated Status: Acute (5) Low back pain Status: Chronic Qualifiers: Chronicity: chronic - AMA Did Patient Leave Against Medical Advice: Yes (AMA)
[2017-08-08] MEDS ORDERED: METHADONE HCL 5 MG TABLET (FOR DETOX USE ONLY) PO SCH (10:00)
[2017-08-08] MEDS ORDERED: diazePAM 5 MG TABLET PO SCH (10:00)
[2017-08-10] MEDS ORDERED: diazePAM 5 MG TABLET PO SCH (10:00)
[2017-08-10] MEDS ORDERED: METHADONE HCL 10 MG TABLET (FOR DETOX USE ONLY) PO SCH (10:00)
[2017-08-11] MEDS ORDERED: METHADONE HCL 5 MG TABLET (FOR DETOX USE ONLY) PO SCH (06:00)
== END 2017-08-07 11:34 | disposition left against medical advice (07) | DRG 770 ==
LOC: YASAS 20:36 → Y3N 23:08
PROVIDERS: ADMIT Internal Medicine; ATTEND Internal Medicine
PROC: HZ2ZZZZ Detoxification Services for Substance Abuse Treatment (ICD-10-PCS; principal; 2017-08-05)
DX: F11.23 Opioid dependence with withdrawal (principal); F13.230 Sedative, hypnotic or anxiolytic dependence with withdrawal, uncomplicated; F10.230 Alcohol dependence with withdrawal, uncomplicated; F14.20 Cocaine dependence, uncomplicated; F17.213 Nicotine dependence, cigarettes, with withdrawal; F19.24 Other psychoactive substance dependence with psychoactive substance-induced mood disorder; G47.00 Insomnia, unspecified; M54.5 Low back pain; G89.29 Other chronic pain
CPT/HCPCS: 36415; 80053; 85027; 86593; 93005; 93010

== ENCOUNTER 2017-10-23 18:39 | Inpatient (IN) | payer OTHER ==
[2017-10-23 19:13] VITALS: BMI 24.3
--- NOTE | 2017-10-23 21:08 | HP ---
Admission ROS [facility] Chief Complaint: SEEKING REHAB SERVICES Allergies/Adverse Reactions: Allergies Allergy/AdvReac Type Severity Reaction Status Date / Time No Known Allergies Allergy Verified 10/23/17 19:25 History of Present Illness: 37 Y.O. MAN WITH A HISTORY OF HEROIN AND XANAX DEPENDENCE IS HERE SEEING REHAB SERVICES. LAST REHAB ADMISSION WAS 3 YEARS AT [facility]. LAST DETOX ADMISSION WAS 07/2017. LONGEST PERIOD CLEAN HAS BEEN 2 YEARS. Exam Limitations: No Limitations - Ebola screening Have you traveled outside of the country in the last 21 days: No (N) Have you had contact with anyone from an Ebola affected area: No Have you been sick,other than usual withdrawal symptoms: No Do you have a fever: No - Review of Systems Constitutional: Chills, Unintentional Wgt. Loss EENT: reports: No Symptoms Reported Respiratory: reports: No Symptoms reported Cardiac: reports: No Symptoms Reported GI: reports: No Symptoms Reported : reports: No Symptoms Reported Musculoskeletal: reports: Back Pain Integumentary: reports: No Symptoms Reported Neuro: reports: Headache Endocrine: reports: No Symptoms Reported Hematology: reports: No Symptoms Reported Psychiatric: reports: Judgement Intact, Mood/Affect Appropiate, Orientated x3 Other Systems: Reviewed and Negative Patient History - Patient Medical History Hx Anemia: No Hx Asthma: No Hx Chronic Obstructive Pulmonary Disease (COPD): No Hx Cancer: No Hx Cardiac Disorders: No Hx Congestive Heart Failure: No Hx Hypertension: No Hx Hypercholesterolemia: No Hx Pacemaker: No HX Cerebrovascular Accident: No Hx Seizures: No Hx Dementia: No Hx Diabetes: No Hx Gastrointestinal Disorders: No Hx Liver Disease: No Hx Genitourinary Disorders: No Hx Sexually Transmitted Disorders: Yes (genital warts ) Hx Renal Disease (ESRD): No Hx Thyroid Disease: No Hx Human Immunodeficiency Virus (HIV): No Hx Hepatitis C: No Hx Depression: No Hx Suicide Attempt: Yes (Denies suicidal ideation at this time) Hx Bipolar Disorder: No Hx Schizophrenia: No - Patient Surgical History Past Surgical History: Yes Hx Neurologic Surgery: No Hx Cataract Extraction: No Hx Cardiac Surgery: No Hx Lung Surgery: No Hx Breast Surgery: No Hx Breast Biopsy: No Hx Abdominal Surgery: No Hx Appendectomy: No Hx Cholecystectomy: No Hx Genitourinary Surgery: No Hx Section: No Hx Orthopedic Surgery: No Other Surgical History: bilateral fx of mandible in 2001 Anesthesia Reaction: No - PPD History Previous Implant?: Yes Documented Results: Negative w/o proof Date: 04/04/12 PPD to be Administered?: Yes - Reproductive History Patient is a Female of Child Bearing Age (11 -55 yrs old): No - Smoking Cessation Smoking history: Current every day smoker Have you smoked in the past 12 months: Yes Aproximately how many cigarettes per day: 60 Hx Chewing Tobacco Use: No Initiated information on smoking cessation: Yes 'Breaking Loose' booklet given: 10/23/17 - Substance & Tx. History Hx Alcohol Use: No Hx Substance Use: Yes Substance Use Type: Cocaine, Heroin, Tranquilizers Hx Substance Use Treatment: Yes (DETOX: 07/2017) - Substances Abused Heroin Route: Injection Frequency: Daily Amount used: 5 BUNDLE Age of first use: 20 Date of Last Use: 10/21/17 Cocaine Route: Smoking Frequency: Daily Amount used: 4GRAMS Age of first use: 23 Date of Last Use: 08/14/17 Alprazolam (Xanax) Route: Oral Frequency: Daily Amount used: 5/2MG Age of first use: 37 Date of Last Use: 08/14/17 Family Disease History - Family Disease History Family Disease History: Other: Brother (dsa ) Admission Physical Exam S - Vital Signs Vital Signs: Vital Signs - 24 hr 10/23/17 18:51 Temperature 97.7 F Pulse Rate 93 H Respiratory 18 Rate Blood Pressure 150/100 - Physical General Appearance: Yes: No Apparent Distress, Nourished HEENTM: Yes: Hearing grossly Normal, Normal ENT Inspection, Normocephalic, Normal Voice Respiratory: Yes: Chest Non-Tender, Lungs Clear, Normal Breath Sounds, No Respiratory Distress, No Accessory Muscle Use Neck: Yes: No masses,lesions,Nodules, Trachea in good position Breast: Yes: Breast Exam Deferred Cardiology: Yes: Regular Rhythm, Regular Rate Abdominal: Yes: Normal Bowel Sounds, Non Tender, Flat, Soft Genitourinary: Yes: Other (NO COMPLAINTS REPORTED) Back: Yes: Normal Inspection Extremities: Yes: Normal Capillary Refill, Normal Inspection, Normal Range of Motion, Non-Tender Neurological: Yes: Fully Oriented, Alert, Motor Strength 5/5, Normal Mood/Affect , Normal Response Integumentary: Yes: Normal Color, Dry, Warm, Track [place] Lymphatic: Yes: Within Normal Limits - Diagnostic (1) Nicotine dependence Current Visit: Yes Status: Chronic Qualifiers: Nicotine product type: cigarettes Substance use status: in withdrawal Qualified Code(s): F17.213 - Nicotine dependence, cigarettes, with withdrawal (2) Opioid dependence with withdrawal Current Visit: Yes Status: Chronic (3) Uncomplicated sedative, hypnotic, or anxiolytic withdrawal Current Visit: Yes Status: Chronic (4) Closed L5 vertebral fracture Current Visit: No Status: Chronic (5) Low back pain Current Visit: No Status: Chronic Qualifiers: Chronicity: chronic (6) 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 Current Visit: Yes Status: Chronic [facility] for [facility]mission [facility] - [facility] Level of Care: Observation Bed Claeared for Rehab Admission: Yes [facility] Breath Alcohol Content Breath Alcohol Content: 0 Urine Drug Screen - Results Drug Screen Negative: No Urine Drug Screen Results: OPI-Opiates Inpatient Rehab Admission - Initial Determination Are CD services needed?: Yes Free of communicable disease: Yes Not in need of hospitalization: Yes - Rehab Admission Criteria Previous failed treatment: Yes Poor recovery environment: Yes Comorbidities: Yes Lacks judgement: Yes Patient is meeting Inpatient Rehab admission criteria:: Yes
[2017-10-23] MEDS ORDERED: LOPERAMIDE HCL 2 MG CAPSULE PO PRN (21:20)
[2017-10-23] MEDS ORDERED: MAGNESIUM CITRATE 300 ML BOTTLE PO PRN (21:20)
[2017-10-23] MEDS ORDERED: MAG HYDROX/AL HYDROX/SIMETH 30 ML UNIT-DOSE CUP PO PRN (21:20)
[2017-10-23] MEDS ORDERED: MAGNESIUM HYDROX 2400MG/30ML ORAL SUSPENSION 30 ML CUP PO PRN (21:20)
[2017-10-23] MEDS ORDERED: NICOTINE POLACRILEX 4 MG GUM BC PRN (21:20)
[2017-10-23] MEDS ORDERED: MENTHOL/PHENOL 1 EACH UD MM PRN (21:20)
[2017-10-23] MEDS ORDERED: P-EPHED 60MG/TRIPROLIDI 2.5MG TABLET PO PRN (21:20)
[2017-10-23] MEDS ORDERED: guaiFENesin/D-METHORPHAN HB 10 ML UNIT-DOSE CUPS PO PRN (21:20)
[2017-10-23] MEDS ORDERED: ACETAMINOPHEN 325 MG TABLET (FP) PO PRN (21:20)
[2017-10-23] MEDS ORDERED: diphenhydrAMINE HCL 25 MG CAPSULE (FP) PO PRN (21:22)
[2017-10-23] MEDS ORDERED: MELATONIN 5 MG TABLETS PO PRN (22:00)
[2017-10-23] MEDS: THIAMINE HCL 100 MG TABLET (FP) PO SCH (22:09)
[2017-10-23] MEDS: hydrOXYzine PAMOATE 50 MG CAPSULE (FP) PO PRN (22:13)
--- NOTE | 2017-10-24 07:03 | HP ---
Psychiatrist Admission - Data Date of interview: 10/24/17 Admission source: [address] Identifying data: This is the [facility] admission for this 37 years old single [place] male, unemployed supported by relatives, domiciled Medical History: Significant for low back pain, history of treatment for genital warts and surgery for fracture of both mandibles in 2001. Smokes cigarettes 3ppd Psychiatric History: Denies history of previous psychiatric treatment Physical/Sexual Abuse/Trauma History: Denies history of emotional, physical or sexual abuse as well as DV relationship. No service Additional Comment: Reports history of multiple arrests including 4 felony convictions. Denies being on parole/probation but hie is drug court Vital Signs: Vital Signs - 24 hr 10/23/17 10/24/17 18:51 03:30 Temperature 97.7 F Pulse Rate 93 H Respiratory 18 18 Rate Blood Pressure 150/100 Allergies/Adverse Reactions: Allergies Allergy/AdvReac Type Severity Reaction Status Date / Time No Known Allergies Allergy Verified 10/23/17 19:25 Date of last physical exam: 10/23/17 Concur with the findings of this exam: Yes - Substance Abuse/Tx History Hx Substance Use: Yes Substance Use Type: Cocaine (Started smoking crack cocaine at age 23, consumes 4 grams daily. Last smoked on 08/14/17), Heroin (Started using heroin at age 20, consumes 50 bagsdaily. Lastused on 10/21/17), Tranquilizers (Started using xanax at age 37, consumes 10 g daily. Last used on 08/14/17) Hx Substance Use Treatment: Yes (3 previous inpt detox admissions @ [facility]) Mental Status Exam - Mental Status Exam Alert and Oriented to: Time, Place, Person Cognitive Function: Fair Patient Appearance: Well Groomed Mood: Depressed Affect: Appropriate Patient Behavior: Cooperative Speech Pattern: Clear Voice Loudness: Normal Thought Process: Intact Thought Disorder: Not Present Hallucinations: Denies Suicidal Ideation: Denies Homicidal Ideation: Denies Insight/Judgement: Fair Sleep: Poorly Appetite: Good Muscle strength/Tone: Normal Gait/Station: Normal Psychiatric Findings - Problem List ([place] 1, 2,3) (1) Opioid dependence Current Visit: Yes Status: Acute (2) Cocaine dependence Current Visit: Yes Status: Acute (3) Sedative hypnotic or anxiolytic dependence Current Visit: Yes Status: Acute (4) Nicotine dependence Current Visit: Yes Status: Chronic Qualifiers: Nicotine product type: cigarettes Substance use status: in withdrawal Qualified Code(s): F17.213 - Nicotine dependence, cigarettes, with withdrawal (5) Substance induced mood disorder Current Visit: Yes Status: Acute (6) Substance-induced sleep disorder Current Visit: Yes Status: Acute (7) Low back pain Current Visit: No Status: Chronic Qualifiers: Chronicity: chronic - Initial Treatment Plan Initial Treatment Plan: 1) Start Belsomra 10 mg po HS prn for insomnia. 2) Monitor progress
--- NOTE | 2017-10-24 09:47 | EKG ---
Test Reason : Blood Pressure : / mmHG Vent. Rate : 067 BPM Atrial Rate : 067 BPM P-R Int : 150 ms QRS Dur : 096 ms QT Int : 414 ms P-R-T Axes : 048 039 024 degrees QTc Int : 437 ms NORMAL SINUS RHYTHM NORMAL ECG WHEN COMPARED WITH ECG OF 23-OCT-2017 22:41, NO SIGNIFICANT CHANGE WAS FOUND Confirmed by SEVERINO EUCEDA MD ([id number]) on 10/24/2017 9:46:49 AM Referred By: Confirmed By:SEVERINO EUCEDA MD
--- NOTE | 2017-10-24 09:47 | EKG ---
Test Reason : Blood Pressure : / mmHG Vent. Rate : 079 BPM Atrial Rate : 079 BPM P-R Int : 154 ms QRS Dur : 098 ms QT Int : 384 ms P-R-T Axes : 053 040 032 degrees QTc Int : 440 ms NORMAL SINUS RHYTHM NON-SPECIFIC INTRA-VENTRICULAR CONDUCTION DELAY WHEN COMPARED WITH ECG OF 06-AUG-2017 09:46, NO SIGNIFICANT CHANGE WAS FOUND Confirmed by SEVERINO EUCEDA MD ([id number]) on 10/24/2017 9:47:24 AM Referred By: Confirmed By:SEVERINO EUCEDA MD
[2017-10-24 10:13] LABS: HEMATOCRIT 39.8 % (35.4-49); HEMOGLOBIN 13.7 GM/dL (11.7-16.9); MCHC 34.4 g/dl (32.0-35.9); MEAN CELL VOLUME 90.2 fl (80-96); MEAN PLT VOLUME 7.4 fl (7.5-11.1); PLATELET COUNT 273 K/MM3 (134-434); RBC 4.41 M/mm3 (4.00-5.60); RDW 15.6 % (11.9-15.9); WHITE BLOOD COUNT 9.1 K/mm3 (4.0-10.0)
[2017-10-24 10:29] LABS: CHLORIDE 106 mmol/L (98-107); POTASSIUM 3.9 mmol/L (3.5-5.1); SODIUM 142 mmol/L (136-145)
[2017-10-24 10:37] LABS: ALBUMIN 3.9 g/dl (3.4-5.0); ALK PHOS 57 U/L (45-117); ANION GAP 11 (8-16); BILIRUBIN,TOTAL 0.4 mg/dL (0.2-1.0); BLOOD UREA NITROGEN 22 mg/dL (7-18); CALCIUM 9.2 mg/dL (8.5-10.1); CO2 25 mmol/L (21-32); CREATININE 0.9 mg/dL (0.7-1.3); GLUCOSE,RANDOM 112 mg/dL (74-106); SGOT/AST 27 U/L (15-37); SGPT/ALT 45 U/L (12-78); TOT PROT 6.9 g/dl (6.4-8.2)
[2017-10-24] MEDS: PRENATAL VITAMINS W/ FOLIC ACID TABLET (FP) PO SCH (11:00)
[2017-10-24] MEDS: NICOTINE 21 MG/24 HOURS TOPICAL PATCH TD SCH (11:06)
[2017-10-24] MEDS ORDERED: TUBERCULIN PPD 5 TU/0.1ML VIAL ID ONE (12:14)
--- NOTE | 2017-10-24 13:12 | PN ---
[facility] Progress Note Note: EKG reviewed and NSR/Normal EKG.
[2017-10-24] MEDS: THIAMINE HCL 100 MG TABLET (FP) PO SCH ×2 (21:17→21:20)
[2017-10-24] MEDS: SUVOREXANT 10 MG TABLET PO PRN (23:02)
[2017-10-24] MEDS: hydrOXYzine PAMOATE 50 MG CAPSULE (FP) PO PRN (23:02)
[2017-10-25] MEDS: PRENATAL VITAMINS W/ FOLIC ACID TABLET (FP) PO SCH (10:35)
[2017-10-25] MEDS: NICOTINE 21 MG/24 HOURS TOPICAL PATCH TD SCH (10:36)
[2017-10-25] MEDS: THIAMINE HCL 100 MG TABLET (FP) PO SCH (21:43)
[2017-10-25] MEDS: SUVOREXANT 10 MG TABLET PO PRN (23:23)
[2017-10-25] MEDS: hydrOXYzine PAMOATE 50 MG CAPSULE (FP) PO PRN (23:23)
[2017-10-26] MEDS: PRENATAL VITAMINS W/ FOLIC ACID TABLET (FP) PO SCH (11:30)
[2017-10-26] MEDS: NICOTINE 21 MG/24 HOURS TOPICAL PATCH TD SCH (11:30)
[2017-10-26 18:16] LABS: URINE APPEARANCE CLEAR; URINE BILIRUBIN NEGATIVE (<2.0 mg/dL); URINE COLOR YELLOW; URINE GLUCOSE (UA) NEGATIVE (NEGATIVE); URINE KETONE NEGATIVE (NEGATIVE); URINE LEUK ESTERASE NEGATIVE (NEGATIVE); URINE NITRITE NEGATIVE (NEGATIVE); URINE PROTEIN NEGATIVE (NEGATIVE); URINE UROBILINOGEN NEGATIVE mg/dL (0.2-1.0)
[2017-10-26] MEDS: THIAMINE HCL 100 MG TABLET (FP) PO SCH (21:14)
[2017-10-26] MEDS: SUVOREXANT 10 MG TABLET PO PRN (22:08)
[2017-10-26] MEDS: hydrOXYzine PAMOATE 50 MG CAPSULE (FP) PO PRN (22:08)
[2017-10-27] MEDS: IBUPROFEN 400 MG TABLET (FP) PO PRN (09:47)
[2017-10-27] MEDS: PRENATAL VITAMINS W/ FOLIC ACID TABLET (FP) PO SCH (09:48)
[2017-10-27] MEDS: NICOTINE 21 MG/24 HOURS TOPICAL PATCH TD SCH (09:48)
[2017-10-27] MEDS: SUVOREXANT 10 MG TABLET PO PRN (22:12)
[2017-10-27] MEDS: THIAMINE HCL 100 MG TABLET (FP) PO SCH (22:12)
[2017-10-27] MEDS: hydrOXYzine PAMOATE 50 MG CAPSULE (FP) PO PRN (22:13)
[2017-10-28] MEDS: PRENATAL VITAMINS W/ FOLIC ACID TABLET (FP) PO SCH (09:46)
[2017-10-28] MEDS: NICOTINE 21 MG/24 HOURS TOPICAL PATCH TD SCH (09:47)
[2017-10-28] MEDS: THIAMINE HCL 100 MG TABLET (FP) PO SCH ×2 (22:19→22:30)
[2017-10-28] MEDS: SUVOREXANT 10 MG TABLET PO PRN (22:31)
[2017-10-28] MEDS: hydrOXYzine PAMOATE 50 MG CAPSULE (FP) PO PRN (22:31)
[2017-10-29] MEDS: NICOTINE 21 MG/24 HOURS TOPICAL PATCH TD SCH (09:52)
[2017-10-29] MEDS: PRENATAL VITAMINS W/ FOLIC ACID TABLET (FP) PO SCH (09:52)
[2017-10-29] MEDS: IBUPROFEN 400 MG TABLET (FP) PO PRN ×2 (15:59→22:01)
[2017-10-29] MEDS: THIAMINE HCL 100 MG TABLET (FP) PO SCH (22:00)
[2017-10-29] MEDS: hydrOXYzine PAMOATE 50 MG CAPSULE (FP) PO PRN (22:00)
[2017-10-29] MEDS: SUVOREXANT 10 MG TABLET PO PRN (22:00)
[2017-10-30] MEDS: NICOTINE 21 MG/24 HOURS TOPICAL PATCH TD SCH (09:47)
[2017-10-30] MEDS: PRENATAL VITAMINS W/ FOLIC ACID TABLET (FP) PO SCH (09:47)
[2017-10-30] MEDS: SUVOREXANT 10 MG TABLET PO PRN (21:33)
[2017-10-30] MEDS: THIAMINE HCL 100 MG TABLET (FP) PO SCH (21:33)
[2017-10-30] MEDS: hydrOXYzine PAMOATE 50 MG CAPSULE (FP) PO PRN (21:33)
[2017-10-30] MEDS: IBUPROFEN 400 MG TABLET (FP) PO PRN (21:35)
[2017-10-31] MEDS: PRENATAL VITAMINS W/ FOLIC ACID TABLET (FP) PO SCH (09:45)
[2017-10-31] MEDS: NICOTINE 21 MG/24 HOURS TOPICAL PATCH TD SCH (09:45)
--- NOTE | 2017-10-31 10:29 | PN ---
Psychiatric Progress Note Vital Signs: Vital Signs Period Temp Pulse Resp BP Sys/Kerr Pulse Ox Last 24 Hr 97.3 F 76 18-20 139/93 Date of Session: 10/31/17 Chief Complaint:: Medication management HPI: Patient addressing Opioid, Cocaine and Sedative Dependence comorbid with Nicotine Dependence, Substance-Induced Mood Disorder and Substance-Induced Sleep Disorder ROS: Start Naltrexone 50 mg po daily, first dose stat Current Medications: Active Medications Generic Name Dose Route Start Last Admin Trade Name Freq PRN Reason Stop Dose Admin Acetaminophen 650 mg 10/23/17 21:20 Tylenol - PO Q4H PRN FEVER Al Hydroxide/Mg Hydroxide 30 ml 10/23/17 21:20 Mylanta Oral Suspension - PO Q6H PRN DYSPEPSIA Diphenhydramine HCl 50 mg 10/23/17 21:22 Benadryl - PO HS PRN INSOMNIA Eucalyptus/Menthol/Phenol/Sorbitol 1 each 10/23/17 21:20 Cepastat Lozenge - MM Q4H PRN SORE THROAT Guaifenesin 10 ml 10/23/17 21:20 Robitussin Dm - PO Q6H PRN COUGH Hydroxyzine Pamoate 50 mg 10/23/17 21:20 10/30/17 21:33 Vistaril - PO 50 mg Q4H PRN Administration AGITATION Ibuprofen 400 mg 10/23/17 21:20 10/30/17 21:35 Motrin - PO 400 mg Q6H PRN Administration Pain level 4-6 Loperamide HCl 4 mg 10/23/17 21:20 Imodium - PO Q6H PRN DIARRHEA Magnesium Citrate 300 ml 10/23/17 21:20 Citroma - PO Q48H PRN CONSTIPATION Magnesium Hydroxide 30 ml 10/23/17 21:20 Milk Of Magnesia - PO DAILY PRN CONSTIPATION Melatonin 5 mg 10/23/17 22:00 10/23/17 22:09 Melatonin PO 5 mg HS PRN Administration INSOMNIA Naltrexone HCl 50 mg 10/31/17 10:30 Revia - PO DAILY NAKUL Nicotine 21 mg 10/24/17 10:00 10/31/17 09:45 Nicoderm Patch - TD 21 mg DAILY NAKUL Administration Nicotine Polacrilex 4 mg 10/23/17 21:20 Nicorette Gum - BC Q2H PRN NICOTINE REPLACEMENT RX Multivit/Folic Acid/Iron 1 tab 10/24/17 10:00 10/31/17 09:45 Vitamins (Sjr) - PO 1 tab DAILY NAKUL Administration Pseudoephedrine/Triprolidine 1 combo 10/23/17 21:20 Actifed - PO TID PRN NASAL CONGESTION Suvorexant 10 mg 10/30/17 22:00 10/30/17 21:33 Belsomra PO 11/02/17 21:59 10 mg HS PRN Administration INSOMNIA Thiamine HCl 100 mg 10/23/17 22:00 10/30/17 21:33 Vitamin B1 - PO 100 mg HS NAKUL Administration Current Side Effect: No Lab tests ordered: Yes Lab tests reviewed: Yes Provider note:: Patient requests to take Vivitrol as he is instructed to do by criminal justice system. He already knows important things about the drug that it is used to minimize opioid including heroin craving, you have to be off heroin for 7-8 prior to initiation etc. Phamacokinetic and pharmacodynamic properties of the drug was fully discussed with patient and he understood them. In addition he was provided with written information regarding Naltrexone. Told newswriter that he has been off heroin for more than 14 days and has not used any opioid product as well within that period. His LFT"s is within normal limit(AST: 27 ; ALT 45; Alk phos 57) Total face to face time:: 25 Mental Status Exam - Mental Status Exam Alert and Oriented to: Time, Place, Person Cognitive Function: Fair Patient Appearance: Well Groomed Mood: Hopeful, Euthymic Affect: Appropriate Patient Behavior: Cooperative Speech Pattern: Clear Voice Loudness: Normal Thought Process: Intact, Goal Oriented Thought Disorder: Not Present Hallucinations: Denies Suicidal Ideation: Denies Homicidal Ideation: Denies Insight/Judgement: Fair Sleep: Fair Appetite: Good Muscle strength/Tone: Normal Gait/Station: Normal Psychiatric Treatment Plan - Problem List (1) Opioid dependence Current Visit: Yes (2) Cocaine dependence Current Visit: Yes (3) Sedative hypnotic or anxiolytic dependence Current Visit: Yes (4) Nicotine dependence Current Visit: Yes Qualifiers: Nicotine product type: cigarettes Substance use status: in withdrawal Qualified Code(s): F17.213 - Nicotine dependence, cigarettes, with withdrawal (5) Substance induced mood disorder Current Visit: Yes (6) Substance-induced sleep disorder Current Visit: Yes (7) Low back pain Current Visit: No Qualifiers: Chronicity: chronic Initial treatment plan: 1) Start Naltrexone oral(Revia) 10 mg po daily. 2) Vivitrol(injectable formulation of Naltrexone) will be administered nex week if patient able to tolerate Revia. 3) Monitor progress
[2017-10-31] MEDS: NALTREXONE HCL 50 MG TABLET PO SCH (12:47)
[2017-10-31] MEDS: THIAMINE HCL 100 MG TABLET (FP) PO SCH (22:42)
[2017-10-31] MEDS: hydrOXYzine PAMOATE 50 MG CAPSULE (FP) PO PRN (22:44)
[2017-10-31] MEDS: SUVOREXANT 10 MG TABLET PO PRN (22:44)
[2017-11-01] MEDS: NICOTINE 21 MG/24 HOURS TOPICAL PATCH TD SCH (09:36)
[2017-11-01] MEDS: NALTREXONE HCL 50 MG TABLET PO SCH (09:36)
[2017-11-01] MEDS: PRENATAL VITAMINS W/ FOLIC ACID TABLET (FP) PO SCH (09:36)
[2017-11-01] MEDS: THIAMINE HCL 100 MG TABLET (FP) PO SCH (21:38)
[2017-11-01] MEDS: SUVOREXANT 10 MG TABLET PO PRN (21:40)
[2017-11-01] MEDS: hydrOXYzine PAMOATE 50 MG CAPSULE (FP) PO PRN (21:41)
[2017-11-02] MEDS: PRENATAL VITAMINS W/ FOLIC ACID TABLET (FP) PO SCH (10:05)
[2017-11-02] MEDS: NALTREXONE HCL 50 MG TABLET PO SCH (10:05)
[2017-11-02] MEDS: NICOTINE 21 MG/24 HOURS TOPICAL PATCH TD SCH (10:05)
[2017-11-02] MEDS: THIAMINE HCL 100 MG TABLET (FP) PO SCH (22:36)
[2017-11-02] MEDS: hydrOXYzine PAMOATE 50 MG CAPSULE (FP) PO PRN (22:36)
[2017-11-02] MEDS: SUVOREXANT 10 MG TABLET PO PRN (22:37)
[2017-11-03] MEDS: PRENATAL VITAMINS W/ FOLIC ACID TABLET (FP) PO SCH (10:17)
[2017-11-03] MEDS: NICOTINE 21 MG/24 HOURS TOPICAL PATCH TD SCH (10:17)
[2017-11-03] MEDS: NALTREXONE HCL 50 MG TABLET PO SCH (10:18)
[2017-11-03] MEDS: IBUPROFEN 400 MG TABLET (FP) PO PRN (10:19)
--- NOTE | 2017-11-03 10:54 | PN ---
Psychiatric Progress Note Vital Signs: Vital Signs Period Temp Pulse Resp BP Sys/Kerr Pulse Ox Last 24 Hr 97.9 F 68 18- 122/81 Date of Session: 11/03/17 Chief Complaint:: Follow up medication management HPI: Patient addressing Opioid, Cocaine and Sedative Dependence comorbid with Nicotine Dependence, Substance-Induced Mood Disorder and Substance-Induced Sleep Disorder Current Medications: Active Medications Generic Name Dose Route Start Last Admin Trade Name Freq PRN Reason Stop Dose Admin Acetaminophen 650 mg 10/23/17 21:20 Tylenol - PO Q4H PRN FEVER Al Hydroxide/Mg Hydroxide 30 ml 10/23/17 21:20 Mylanta Oral Suspension - PO Q6H PRN DYSPEPSIA Diphenhydramine HCl 50 mg 10/23/17 21:22 Benadryl - PO HS PRN INSOMNIA Eucalyptus/Menthol/Phenol/Sorbitol 1 each 10/23/17 21:20 Cepastat Lozenge - MM Q4H PRN SORE THROAT Guaifenesin 10 ml 10/23/17 21:20 Robitussin Dm - PO Q6H PRN COUGH Hydroxyzine Pamoate 50 mg 10/23/17 21:20 11/02/17 22:36 Vistaril - PO 50 mg Q4H PRN Administration AGITATION Ibuprofen 400 mg 10/23/17 21:20 11/03/17 10:19 Motrin - PO 400 mg Q6H PRN Administration Pain level 4-6 Loperamide HCl 4 mg 10/23/17 21:20 Imodium - PO Q6H PRN DIARRHEA Magnesium Citrate 300 ml 10/23/17 21:20 Citroma - PO Q48H PRN CONSTIPATION Magnesium Hydroxide 30 ml 10/23/17 21:20 Milk Of Magnesia - PO DAILY PRN CONSTIPATION Melatonin 5 mg 10/23/17 22:00 10/23/17 22:09 Melatonin PO 5 mg HS PRN Administration INSOMNIA Naltrexone HCl 50 mg 10/31/17 10:30 11/03/17 10:18 Revia - PO 50 mg DAILY NAKUL Administration Nicotine 21 mg 10/24/17 10:00 11/03/17 10:17 Nicoderm Patch - TD 21 mg DAILY NAKUL Administration Nicotine Polacrilex 4 mg 10/23/17 21:20 Nicorette Gum - BC Q2H PRN NICOTINE REPLACEMENT RX Multivit/Folic Acid/Iron 1 tab 10/24/17 10:00 11/03/17 10:17 Vitamins (Sjr) - PO 1 tab DAILY NAKUL Administration Pseudoephedrine/Triprolidine 1 combo 10/23/17 21:20 Actifed - PO TID PRN NASAL CONGESTION Suvorexant 10 mg 11/02/17 22:01 11/02/17 22:37 Belsomra PO 10 mg HS PRN Administration INSOMNIA Thiamine HCl 100 mg 10/23/17 22:00 11/02/17 22:36 Vitamin B1 - PO 100 mg HS NAKUL Administration Current Side Effect: No Lab tests ordered: Yes Lab tests reviewed: Yes Provider note:: Patient was started on Naltrexone on 10/31/17. He reported no adverse-effects from the medication. Denies nausea. vomitung, diarrhea, dizziness, headache, tiredness etc. Requests to be started on Vivitrol Total face to face time:: 15 Mental Status Exam - Mental Status Exam Alert and Oriented to: Time, Place, Person Cognitive Function: Fair Patient Appearance: Well Groomed Mood: Hopeful, Euthymic Affect: Appropriate Patient Behavior: Cooperative Speech Pattern: Clear Voice Loudness: Normal Thought Process: Intact, Goal Oriented Thought Disorder: Not Present Hallucinations: Denies Suicidal Ideation: Denies Homicidal Ideation: Denies Insight/Judgement: Fair Sleep: Fair Appetite: Good Muscle strength/Tone: Normal Gait/Station: Normal Psychiatric Treatment Plan - Problem List (1) Opioid dependence Current Visit: Yes (2) Cocaine dependence Current Visit: Yes (3) Sedative hypnotic or anxiolytic dependence Current Visit: Yes (4) Nicotine dependence Current Visit: Yes Qualifiers: Nicotine product type: cigarettes Substance use status: in withdrawal Qualified Code(s): F17.213 - Nicotine dependence, cigarettes, with withdrawal (5) Substance induced mood disorder Current Visit: Yes (6) Substance-induced sleep disorder Current Visit: Yes (7) Low back pain Current Visit: No Qualifiers: Chronicity: chronic Initial treatment plan: 1) Discontinue Revia(Naltrexone oral). 2) Start Vivitrol(Naltrexone parenteral) 380 mg IM once at 10 AM on 11/04/17. 3) Monitor progress
[2017-11-03] MEDS: THIAMINE HCL 100 MG TABLET (FP) PO SCH (23:22)
[2017-11-03] MEDS: hydrOXYzine PAMOATE 50 MG CAPSULE (FP) PO PRN (23:24)
[2017-11-03] MEDS: SUVOREXANT 10 MG TABLET PO PRN (23:25)
[2017-11-04] MEDS ORDERED: NALTREXONE MICROSPHERES (VIVITROL) 380 MG DISP.SYRIN IM ONE (10:00)
[2017-11-04] MEDS: NICOTINE 21 MG/24 HOURS TOPICAL PATCH TD SCH (10:59)
[2017-11-04] MEDS: PRENATAL VITAMINS W/ FOLIC ACID TABLET (FP) PO SCH (10:59)
[2017-11-04] MEDS: THIAMINE HCL 100 MG TABLET (FP) PO SCH (22:12)
[2017-11-04] MEDS: SUVOREXANT 10 MG TABLET PO PRN (22:13)
[2017-11-04] MEDS: hydrOXYzine PAMOATE 50 MG CAPSULE (FP) PO PRN (22:14)
[2017-11-05 07:00] VITALS: TEMP 97.4
[2017-11-05] MEDS: PRENATAL VITAMINS W/ FOLIC ACID TABLET (FP) PO SCH (10:35)
[2017-11-05] MEDS: NICOTINE 21 MG/24 HOURS TOPICAL PATCH TD SCH (10:35)
[2017-11-05] MEDS: THIAMINE HCL 100 MG TABLET (FP) PO SCH (21:35)
[2017-11-05] MEDS: SUVOREXANT 10 MG TABLET PO PRN (21:35)
[2017-11-05] MEDS: hydrOXYzine PAMOATE 50 MG CAPSULE (FP) PO PRN (21:36)
[2017-11-05] MEDS ORDERED: SUVOREXANT 10 MG TABLET PO PRN (22:01)
[2017-11-06] MEDS: NICOTINE 21 MG/24 HOURS TOPICAL PATCH TD SCH (09:28)
[2017-11-06] MEDS: PRENATAL VITAMINS W/ FOLIC ACID TABLET (FP) PO SCH (09:28)
[2017-11-06] MEDS: THIAMINE HCL 100 MG TABLET (FP) PO SCH (22:29)
[2017-11-06] MEDS: hydrOXYzine PAMOATE 50 MG CAPSULE (FP) PO PRN (22:31)
[2017-11-07 07:05] VITALS: BP 152/89; PULSE 64
--- NOTE | 2017-11-07 09:02 | PN ---
Psychiatric Progress Note Vital Signs: Vital Signs Period Temp Pulse Resp BP Sys/Kerr Pulse Ox Last 24 Hr 97.4 F 64 18-18 152/89 Date of Session: 11/07/17 Chief Complaint:: Discharge Note HPI: Patient addressing Opioid, Cocaine and Sedative Dependence comorbid with Nicotine Dependence, Substance-Induced Mood Disorder and Substance-Induced Sleep Disorder Current Medications: Active Medications Generic Name Dose Route Start Last Admin Trade Name Freq PRN Reason Stop Dose Admin Acetaminophen 650 mg 10/23/17 21:20 Tylenol - PO Q4H PRN FEVER Al Hydroxide/Mg Hydroxide 30 ml 10/23/17 21:20 Mylanta Oral Suspension - PO Q6H PRN DYSPEPSIA Diphenhydramine HCl 50 mg 10/23/17 21:22 Benadryl - PO HS PRN INSOMNIA Eucalyptus/Menthol/Phenol/Sorbitol 1 each 10/23/17 21:20 Cepastat Lozenge - MM Q4H PRN SORE THROAT Guaifenesin 10 ml 10/23/17 21:20 Robitussin Dm - PO Q6H PRN COUGH Hydroxyzine Pamoate 50 mg 10/23/17 21:20 11/06/17 22:31 Vistaril - PO 50 mg Q4H PRN Administration AGITATION Ibuprofen 400 mg 10/23/17 21:20 11/03/17 10:19 Motrin - PO 400 mg Q6H PRN Administration Pain level 4-6 Loperamide HCl 4 mg 10/23/17 21:20 Imodium - PO Q6H PRN DIARRHEA Magnesium Citrate 300 ml 10/23/17 21:20 Citroma - PO Q48H PRN CONSTIPATION Magnesium Hydroxide 30 ml 10/23/17 21:20 Milk Of Magnesia - PO DAILY PRN CONSTIPATION Melatonin 5 mg 10/23/17 22:00 10/23/17 22:09 Melatonin PO 5 mg HS PRN Administration INSOMNIA Nicotine 21 mg 10/24/17 10:00 11/06/17 09:28 Nicoderm Patch - TD 21 mg DAILY NAKUL Administration Nicotine Polacrilex 4 mg 10/23/17 21:20 Nicorette Gum - BC Q2H PRN NICOTINE REPLACEMENT RX Multivit/Folic Acid/Iron 1 tab 10/24/17 10:00 11/06/17 09:28 Vitamins (Sjr) - PO 1 tab DAILY NAKUL Administration Pseudoephedrine/Triprolidine 1 combo 10/23/17 21:20 Actifed - PO TID PRN NASAL CONGESTION Suvorexant 10 mg 11/05/17 22:01 11/06/17 22:31 Belsomra PO 10 mg HS PRN Administration INSOMNIA Thiamine HCl 100 mg 10/23/17 22:00 11/06/17 22:29 Vitamin B1 - PO 100 mg HS NAKUL Administration Current Side Effect: No Lab tests ordered: Yes Lab tests reviewed: Yes Provider note:: Patient has completed this program today. He has met his treatment goals and will continue to address his issues in outpatient treatment at [facility]. Told group underwriter that from his participation in this program, he has learned to identify his triggers and stay away from them. He responded well to Naltrexone . His next Vivitrol injection is due on 12/02/17. He is stable for discharge today Total face to face time:: 35 Mental Status Exam - Mental Status Exam Alert and Oriented to: Time, Place, Person Cognitive Function: Fair Patient Appearance: Well Groomed Mood: Hopeful, Euthymic Affect: Appropriate Patient Behavior: Cooperative Speech Pattern: Clear Voice Loudness: Normal Thought Process: Intact, Goal Oriented Thought Disorder: Not Present Hallucinations: Denies Suicidal Ideation: Denies Homicidal Ideation: Denies Insight/Judgement: Fair Sleep: Fair Appetite: Good Muscle strength/Tone: Normal Gait/Station: Normal Psychiatric Treatment Plan - Problem List (1) Opioid dependence Current Visit: Yes (2) Cocaine dependence Current Visit: Yes (3) Sedative hypnotic or anxiolytic dependence Current Visit: Yes (4) Nicotine dependence Current Visit: Yes Qualifiers: Nicotine product type: cigarettes Substance use status: in withdrawal Qualified Code(s): F17.213 - Nicotine dependence, cigarettes, with withdrawal (5) Substance induced mood disorder Current Visit: Yes (6) Substance-induced sleep disorder Current Visit: Yes (7) Low back pain Current Visit: No Qualifiers: Chronicity: chronic Initial treatment plan: Patient is discharged today and referred to [facility] for outpatient treatment
[2017-11-07] MEDS: NICOTINE 21 MG/24 HOURS TOPICAL PATCH TD SCH (09:49)
[2017-11-07] MEDS: PRENATAL VITAMINS W/ FOLIC ACID TABLET (FP) PO SCH (09:49)
[2017-11-07] MEDS: hydrOXYzine PAMOATE 50 MG CAPSULE (FP) PO PRN (09:50)
== END 2017-11-07 09:55 | disposition home or self-care (01) | DRG 772 ==
LOC: YASAS 18:39 → Y3W 21:21
PROVIDERS: ADMIT Psychiatry & Neurology Psychiatry; ATTEND Psychiatry & Neurology Psychiatry
PROC: HZ42ZZZ Group Counseling for Substance Abuse Treatment, Cognitive-Behavioral (ICD-10-PCS; principal; 2017-10-23)
DX: F11.20 Opioid dependence, uncomplicated (principal); F13.20 Sedative, hypnotic or anxiolytic dependence, uncomplicated; F14.20 Cocaine dependence, uncomplicated; F17.213 Nicotine dependence, cigarettes, with withdrawal; F19.24 Other psychoactive substance dependence with psychoactive substance-induced mood disorder; F19.282 Other psychoactive substance dependence with psychoactive substance-induced sleep disorder; M54.5 Low back pain; G89.29 Other chronic pain
CPT/HCPCS: 36415; 80053; 81003; 85027; 86593; 93005; 93010; J2315

== ENCOUNTER 2018-05-04 07:23 | Day surgery (SDC) | payer OTHER ==
[2018-04-30 16:58] VITALS: BMI 25.1
[2018-05-04] MEDS ORDERED: MIDAZOLAM HCL 2 MG/2 ML SINGLE DOSE VIAL ONE (09:03)
[2018-05-04] MEDS ORDERED: LIDOCAINE HCL/PF 2% SDV 5ML VIAL ONE (09:03)
[2018-05-04] MEDS ORDERED: PROPOFOL 20 ML ONE (09:03)
--- NOTE | 2018-05-04 09:28 | OP ---
Operative Note - Note: Operative Date: 05/04/18 Pre-Operative Diagnosis: Right renal stone Operation: Right ESWL Findings: 5 mm mid pole renal stone Post-Operative Diagnosis: Same as Pre-op Surgeon: Mook Bernstein Anesthesia: Fractional Estimated Blood Loss (mls): 0
[2018-05-04] MEDS ORDERED: ONDANSETRON 4 MG/2 ML VIAL IVPUSH PRN (09:51)
[2018-05-04] MEDS ORDERED: oxyCODONE HCL 5 MG TABLET PO PRN (09:51)
[2018-05-04] MEDS ORDERED: LACTATED RINGERS SOLUTION 1,000 ML IV SCH (10:00)
[2018-05-04 10:19] VITALS: TEMP 98.1
[2018-05-04 10:31] VITALS: PULSE 56
[2018-05-04 11:07] VITALS: BP 130/80
--- NOTE | 2018-05-04 21:19 | OP ---
DATE OF OPERATION: 05/04/2018 PREOPERATIVE DIAGNOSIS: Right renal stone. POSTOPERATIVE DIAGNOSIS: Right renal stone. PROCEDURE: Right extracorporeal shock-wave lithotripsy. ATTENDING: Falguni Shaver MD ANESTHESIA: Fractional. DESCRIPTION OF PROCEDURE: The patient was brought in the operating room and placed in supine position on the operating room table. Ultrasonography and fluoroscopy were performed. A 5-mm right mid pole stone was identified. At this point, anesthesia and preoperative antibiotics were administered. Shock-wave lithotripsy was then started. Then 2500 impulses at 17 J of power were administered to the stone under real time ultrasonography and fluoroscopy. Excellent fragmentation was noted. There were no complications noted. DISPOSITION: To the recovery room. FALGUNI SHAVER M.D. [id number]
== END 2018-05-04 11:08 | disposition home or self-care (01) ==
LOC: JASU-SURG 07:23
PROVIDERS: ATTEND Urology
PROC: 0TF3XZZ Fragmentation in Right Kidney Pelvis, External Approach (ICD-10-PCS; principal; 2018-05-04 08:00)
DX: N20.0 Calculus of kidney (principal)
CPT/HCPCS: 94760

== ENCOUNTER 2018-10-08 13:06 | Inpatient (IN) | payer OTHER ==
[2018-10-08 14:58] VITALS: BMI 25.1
--- NOTE | 2018-10-08 16:54 | HP ---
COWS - Scale Resting Pulse: 1= [place] 81-100 Sweatin= Chills/Flushing Restless Observation: 1= Difficult to Sit Still Pupil Size: 1= Pupils >than Normal Bone or Joint Aches: 1= Mild Discomfort Runny Nose/ Eye Tearin= Runny Nose/Eyes GI Upset > 30mins: 2= Nausea/Diarrhea Tremor Observation: 1= Tremor [place], Not Seen Yawning Observation: 0= None Anxiety or Irritability: 2=Irritable/Anxious Goose Flesh Skin: 0=Smooth Skin COWS Score: 12 CIWA Score - Admission Criteria OASAS Guidelines: Admission for Medically Managed Detox: Requires at least one of the followin. CIWA greater than 12 2. Seizures within the past 24 hours 3. Delirium tremens within the past 24 hours 4. Hallucinations within the past 24 hours 5. Acute intervention needed for co occurring medical disorder 6. Acute intervention needed for co occurring psychiatric disorder 7. Severe withdrawal that cannot be handled at a lower level of care (continued vomiting, continued diarrhea, abnormal vital signs) requiring intravenous medication and/or fluids 8. Admission ROS [facility] - HPI Chief Complaint: withdrawal symptoms Allergies/Adverse Reactions: Allergies Allergy/AdvReac Type Severity Reaction Status Date / Time No Known Allergies Allergy Verified 10/08/18 14:48 History of Present Illness: 38 yo male with hx of heroin (IV) and cocaine (IV) is here for withdrawal symptoms. PMHX: Hep C treated, HTN (reports no meds). Denies psych hx Denies SI/HI. Reports recently nine month sobriety while on Vivitrol, relapse about five months ago. Exam Limitations: No Limitations - Ebola screening Have you traveled outside of the country in the last 21 days: No Have you had contact with anyone from an Ebola affected area: No Do you have a fever: No - Review of Systems Constitutional: Chills, Loss of Appetite, Changes in sleep, Unintentional Wgt. Loss EENT: reports: Nose Congestion Respiratory: reports: No Symptoms reported Cardiac: reports: No Symptoms Reported GI: reports: Diarrhea, Nausea, Poor Appetite, Poor Fluid Intake, Abdominal cramping : reports: No Symptoms Reported Musculoskeletal: reports: Muscle Pain Integumentary: reports: Pruritus Neuro: reports: No Symptoms reported Endocrine: reports: See HPI Hematology: reports: No Symptoms Reported Psychiatric: reports: Orientated x3, Anxious Other Systems: Reviewed and Negative Patient History - Patient Medical History Hx Anemia: No Hx Asthma: No Hx Chronic Obstructive Pulmonary Disease (COPD): No Hx Cancer: No Hx Cardiac Disorders: No Hx Congestive Heart Failure: No Hx Hypertension: No (borderline) Hx Hypercholesterolemia: No Hx Pacemaker: No HX Cerebrovascular Accident: No Hx Seizures: No Hx Dementia: No Hx Diabetes: No Hx Gastrointestinal Disorders: No Hx Liver Disease: No Hx Genitourinary Disorders: No Hx Sexually Transmitted Disorders: Yes (genital warts ) Hx Renal Disease (ESRD): No Hx Thyroid Disease: No Hx Human Immunodeficiency Virus (HIV): No Hx Hepatitis C: Yes (tx'd Mavyret x 8 wks) Hx Depression: No Hx Suicide Attempt: No Hx Bipolar Disorder: No Hx Schizophrenia: No - Patient Surgical History Past Surgical History: Yes Hx Neurologic Surgery: No Hx Cataract Extraction: No Hx Cardiac Surgery: No Hx Lung Surgery: No Hx Breast Surgery: No Hx Breast Biopsy: No Hx Abdominal Surgery: No Hx Appendectomy: No Hx Cholecystectomy: No Hx Genitourinary Surgery: No Hx Section: No Hx Orthopedic Surgery: Yes Other Surgical History: bilateral fx of mandible in 2001 Anesthesia Reaction: No - PPD History Previous Implant?: No Documented Results: Negative w/proof Date: 10/26/17 PPD to be Administered?: No - Smoking Cessation Smoking history: Current every day smoker Have you smoked in the past 12 months: Yes Aproximately how many cigarettes per day: 40 Hx Chewing Tobacco Use: No Initiated information on smoking cessation: Yes 'Breaking Loose' booklet given: 10/08/18 - Substance & Tx. History Hx Alcohol Use: No Hx Substance Use: Yes Substance Use Type: Heroin, Tranquilizers Hx Substance Use Treatment: Yes ([facility] Rehab October 2017) - Substances abused Heroin Substance route: Injection Frequency: Daily Amount used: 2 bundles Age of first use: 23 Date of last use: 10/08/18 Cocaine Substance route: Injection Frequency: Daily Amount used: 1/2 gram Age of first use: 14 Date of last use: 10/08/18 Family Disease History - Family Disease History Family Disease History: Other: Brother (dsa ) Admission Physical Exam BHS - Vital Signs Vital Signs: Vital Signs - 24 hr 10/08/18 10/08/18 14:49 15:13 Temperature 98.1 F 98.1 F Pulse Rate 96 H 96 H Respiratory 18 18 Rate Blood Pressure 191/110 H 191/110 H - Physical General Appearance: Yes: Disheveled, Mild Distress, Thin, Sweating, Anxious HEENTM: Yes: EOMI, Hearing grossly Normal, Normal ENT Inspection, Normocephalic , Normal Voice, LUBNA, Pharynx Normal, Tm's normal, Other (cheilitis) Respiratory: Yes: Chest Non-Tender, Lungs Clear, Normal Breath Sounds, No Respiratory Distress, No Accessory Muscle Use Neck: Yes: Within Normal Limits Breast: Yes: Breast Exam Deferred Cardiology: Yes: Regular Rhythm, Regular Rate Abdominal: Yes: Normal Bowel Sounds, Non Tender, Flat, Soft Back: Yes: Normal Inspection Musculoskeletal: Yes: Back pain Extremities: Yes: Within Normal Limits Neurological: Yes: supervisor sound technician II-XII NML intact, Fully Oriented, Alert, Motor Strength 5/5, Depressed Affect Integumentary: Yes: Normal Color, Warm, Diaphoresis, Track Perdue (bilateral anticubital fossa, no infection present) Lymphatic: Yes: Within Normal Limits - Diagnostic (1) Cocaine dependence Current Visit: Yes Status: Acute Qualifiers: Substance use status: uncomplicated Qualified Code(s): F14.20 - Cocaine dependence, uncomplicated (2) Hypertension Current Visit: Yes Status: Chronic Qualifiers: Hypertension type: essential hypertension Qualified Code(s): I10 - Essential (primary) hypertension (3) IV drug user Current Visit: Yes Status: Chronic (4) Nicotine dependence Current Visit: Yes Status: Chronic Qualifiers: Nicotine product type: cigarettes Substance use status: in withdrawal Qualified Code(s): F17.213 - Nicotine dependence, cigarettes, with withdrawal (5) Opioid dependence with withdrawal Current Visit: Yes Status: Acute (6) Elevated blood pressure reading in office with diagnosis of hypertension Current Visit: Yes Status: Acute Cleared for Admission S - Detox or Rehab [facility] Level of Care: Medically Managed Detox Regimen/Protocol: Methadone Breathalyzer - Breathalyzer Breathalyzer: 0 Urine Drug Screen - Test Device Lot number: [id number] Expiration date: 05/15/20 - Control Is test valid?: Yes - Results Drug screen NEGATIVE: No Urine drug screen results: JETT-Cocaine, MET-Methamphetamine, MOP-Opiates, OXY- Oxycodone Inpatient Rehab Admission - Rehab Decision to Admit Inpatient rehab admission?: No
[2018-10-08] MEDS ORDERED: IBUPROFEN 400 MG TABLET (FP) PO PRN (17:22)
[2018-10-08] MEDS ORDERED: NICOTINE POLACRILEX 4 MG GUM BUC PRN (17:22)
[2018-10-08] MEDS ORDERED: MAGNESIUM HYDROX 2400MG/30ML ORAL SUSPENSION 30 ML CUP PO PRN (17:22)
[2018-10-08] MEDS ORDERED: MELATONIN 5 MG TABLETS PO PRN (17:22)
[2018-10-08] MEDS ORDERED: BISMUTH SUBSALICYLATE 524 MG/30 ML UD PO PRN (17:22)
[2018-10-08] MEDS ORDERED: cloNIDine HCL 0.1 MG TABLET PO PRN (17:22)
[2018-10-08] MEDS ORDERED: METHOCARBAMOL 500 MG TABLET PO PRN (17:22)
[2018-10-08] MEDS ORDERED: MENTHOL/PHENOL 1 EACH UD MM PRN (17:22)
[2018-10-08] MEDS ORDERED: MAGNESIUM CITRATE 300 ML BOTTLE PO PRN (17:22)
[2018-10-08] MEDS ORDERED: MAG HYDROX/AL HYDROX/SIMETH 30 ML UNIT-DOSE CUP PO PRN (17:22)
[2018-10-08] MEDS ORDERED: PROCHLORPERAZINE MALEATE 5 MG TABLET PO PRN (17:22)
[2018-10-08] MEDS ORDERED: ONDANSETRON *ODT* 4 MG TABLET SL PRN (17:22)
[2018-10-08] MEDS ORDERED: ACETAMINOPHEN 325 MG TABLET (FP) PO PRN ×2 (17:22)
[2018-10-08] MEDS ORDERED: METHADONE HCL 10 MG TABLET PO ONE (18:15)
[2018-10-08] MEDS ORDERED: diphenhydrAMINE HCL 25 MG CAPSULE (FP) PO ONE (21:50)
[2018-10-08] MEDS ORDERED: diphenhydrAMINE HCL 50 MG CAPSULE PO ONE (22:00)
[2018-10-08] MEDS: THIAMINE HCL 100 MG TABLET (FP) PO SCH (22:11)
[2018-10-08] MEDS: diazePAM 5 MG TABLET PO PRN (22:13)
[2018-10-08] MEDS ORDERED: METHADONE HCL 10 MG TABLET (FOR DETOX USE ONLY) PO ONE (23:00)
[2018-10-08 23:08] LABS: URINE APPEARANCE CLEAR; URINE BILIRUBIN NEGATIVE (NEGATIVE); URINE COLOR YELLOW; URINE GLUCOSE (UA) NEGATIVE (NEGATIVE); URINE KETONE TRACE (NEGATIVE); URINE LEUK ESTERASE NEGATIVE (NEGATIVE); URINE NITRITE NEGATIVE (NEGATIVE); URINE PROTEIN TRACE (NEGATIVE); URINE UROBILINOGEN 0.2 mg/dL (0.2-1.0)
[2018-10-09 09:56] LABS: HEMATOCRIT 40.9 % (35.4-49); HEMOGLOBIN 13.7 GM/dL (11.7-16.9); MCH 30.2 pg (25.7-33.7); MCHC 33.6 g/dl (32.0-35.9); MEAN CELL VOLUME 89.8 fl (80-96); MEAN PLT VOLUME 7.8 fl (7.5-11.1); PLATELET COUNT 253 K/MM3 (134-434); RBC 4.56 M/mm3 (4.00-5.60); RDW 13.2 % (11.9-15.9); WHITE BLOOD COUNT 7.3 K/mm3 (4.0-10.0)
[2018-10-09] MEDS ORDERED: METHADONE HCL 10 MG TABLET (FOR DETOX USE ONLY) PO ONE (10:00)
[2018-10-09] MEDS: diazePAM 5 MG TABLET PO PRN ×2 (10:09→22:05)
[2018-10-09 10:10] LABS: ALBUMIN 3.6 g/dl (3.4-5.0); ALK PHOS 51 U/L (45-117); ANION GAP 5 MMOL/L (8-16); BILIRUBIN,TOTAL 0.2 mg/dL (0.2-1); BLOOD UREA NITROGEN 20 mg/dL (7-18); CALCIUM 8.9 mg/dL (8.5-10.1); CHLORIDE 104 mmol/L (98-107); CO2 30 mmol/L (21-32); CREATININE 0.9 mg/dL (0.55-1.3); GLUCOSE,RANDOM 75 mg/dL (74-106); POTASSIUM 4.4 mmol/L (3.5-5.1); SGOT/AST 17 U/L (15-37); SGPT/ALT 17 U/L (13-61); SODIUM 140 mmol/L (136-145); TOT PROT 7.3 g/dl (6.4-8.2)
[2018-10-09] MEDS: NICOTINE 21 MG/24 HOURS TOPICAL PATCH TD SCH (10:10)
[2018-10-09] MEDS: PRENATAL VITAMINS W/ FOLIC ACID TABLET (FP) PO SCH (10:10)
--- NOTE | 2018-10-09 12:53 | CONSULT ---
[facility] - Data Date of interview: 10/09/18 [facility] Identifying data: This is one of multiple admissions to [facility] for this 38 y/ o [place]-born male, court-mandated for detoxification + rehabilitation (heroin , xanax, cocaine). Examined at [address] [place] [address]. Patient is single without children, domiciled, unemployed and reportedly supported by friends/relatives. Substance Abuse History: Confirmed by the patient in this session. Details in [facility] : Smoking history: Current every day smoker. Have you smoked in the past 12 months: Yes. Aproximately how many cigarettes per day: 40. Hx Chewing Tobacco Use: No. Initiated information on smoking cessation: Yes. 'Breaking Loose' booklet given: 10/08/18. - Substance & Tx. History. Hx Alcohol Use: No. Hx Substance Use: Yes. Substance Use Type: Heroin, Tranquilizers. Hx Substance Use Treatment: Yes ([facility] Rehab October 2017). - Substances abused. Heroin. Substance route: Injection. Frequency: Daily. Amount used: 2 bundles. Age of first use: 23. Date of last use: 10/08/18. Cocaine. Substance route: Injection. Frequency: Daily. Amount used: 1/2 gram. Age of first use: 14. Date of last use: 10/08/18 Medical History: Remarkable for a history of treatment for genital warts , hypertension, hepatitis C (treated) and orthosurgery for bilateral fracture of mandibles (2001). Psychiatric History: Patient denies. Physical/Sexual Abuse/Trauma History: No history of abuse. Additional Comment: Urine drug screen results: JETT-Cocaine, MET-Methamphetamine , MOP-Opiates, OXY-Oxycodone. Noted. Mental Status Exam - Mental Status Exam Alert and Oriented to: Time, Place, Person Cognitive Function: Good Patient Appearance: Unkempt, Disheveled Mood: Nervous, Withdrawn Affect: Appropriate, Mood Congruent, Normal Range Speech Pattern: Clear (tamazight fluent) Voice Loudness: Normal Thought Process: Intact, Goal Oriented Thought Disorder: Not Present Hallucinations: Denies Suicidal Ideation: Denies Homicidal Ideation: Denies Insight/Judgement: Poor Sleep: Poorly, Difficulty falling asleep (requests seroquel at bedtime) Appetite: Good Muscle strength/Tone: Normal Gait/Station: Normal Psychiatric Findings - Problem List ([place] 1, 2,3) (1) Opioid dependence Current Visit: Yes Status: Chronic (2) Cocaine dependence Current Visit: Yes Status: Chronic Qualifiers: Substance use status: uncomplicated Qualified Code(s): F14.20 - Cocaine dependence, uncomplicated (3) Nicotine dependence Current Visit: Yes Status: Chronic Qualifiers: Nicotine product type: cigarettes Substance use status: in withdrawal Qualified Code(s): F17.213 - Nicotine dependence, cigarettes, with withdrawal (4) Substance induced mood disorder Current Visit: Yes Status: Chronic (5) Insomnia Current Visit: Yes Status: Chronic - Initial Treatment Plan Initial Treatment Plan: Psychoeducation. Sleep hygiene. Support. Detoxification. Relapse prevention (MAT) : discussed with patient. AA/NA meetings. Motivational counseling. Seroquel 50 mg po hs (patient's request). Side effects/benefits discussed with patient. Consent (verbal) : given. Observation.
--- NOTE | 2018-10-09 17:12 | PN ---
BHS COWS - Scale Resting Pulse: 0= [place] 80 or Below Sweatin= Chills/Flushing Restless Observation: 1= Difficult to Sit Still Pupil Size: 0= Normal to Room Light Bone or Joint Aches: 2= Severe Diffuse Aches Runny Nose/ Eye Tearin= None GI Upset > 30mins: 1= Stomach Cramp Tremor Observation of Outstretched Hands: 2= Slight Tremor Visible Yawning Observation: 1= 1-2x During Session Anxiety or Irritability: 2=Irritable/Anxious Goose Flesh Skin: 3=[place]il[place] COWS Score: 13 BHS Progress Note (SOAP) Subjective: Body Aches, Stomach Cramping, Sweating, Tremors. Objective: PATIENT A & O X 3, OBSERVED AMBULATING ON UNIT UNASSISTED. IN NO ACUTE DISTRESS. 10/09/18 17:11 Vital Signs Temperature 98.1 F 10/09/18 13:19 Pulse Rate 67 10/09/18 13:19 Respiratory Rate 18 10/09/18 13:19 Blood Pressure 113/68 10/09/18 13:19 O2 Sat by Pulse Oximetry (%) Laboratory Tests 10/08/18 10/09/18 10/09/18 22:30 06:45 06:45 WBC 7.3 RBC 4.56 Hgb 13.7 Hct 40.9 D MCV 89.8 MCH 30.2 MCHC 33.6 RDW 13.2 Plt Count 253 D MPV 7.8 Sodium 140 Potassium 4.4 Chloride 104 Carbon Dioxide 30 Anion Gap 5 L BUN 20 H Creatinine 0.9 Creat Clearance w eGFR 93.46 Random Glucose 75 Calcium 8.9 Total Bilirubin 0.2 AST 17 ALT 17 Alkaline Phosphatase 51 Total Protein 7.3 Albumin 3.6 Urine Color Yellow Urine Appearance Clear Urine pH 6.0 Ur Specific [place] 1.023 Urine Protein Trace Urine Glucose (UA) Negative Urine Ketones Trace H Urine Blood Negative Urine Nitrite Negative Urine Bilirubin Negative Urine Urobilinogen 0.2 Ur Leukocyte Esterase Negative RPR Titer 10/09/18 06:45 WBC RBC Hgb Hct MCV MCH MCHC RDW Plt Count MPV Sodium Potassium Chloride Carbon Dioxide Anion Gap BUN Creatinine Creat Clearance w eGFR Random Glucose Calcium Total Bilirubin AST ALT Alkaline Phosphatase Total Protein Albumin Urine Color Urine Appearance Urine pH Ur Specific [place] Urine Protein Urine Glucose (UA) Urine Ketones Urine Blood Urine Nitrite Urine Bilirubin Urine Urobilinogen Ur Leukocyte Esterase RPR Titer Nonreactive LABS NOTED. Assessment: 10/09/18 17:11 WITHDRAWAL SYMPTOMS. Plan: CONTINUE DETOX. INCREASE DAILY PO FLUID / WATER INTAKE.
[2018-10-09] MEDS: THIAMINE HCL 100 MG TABLET (FP) PO SCH (22:05)
[2018-10-10] MEDS: diazePAM 5 MG TABLET PO PRN ×2 (09:51→22:08)
[2018-10-10] MEDS: PRENATAL VITAMINS W/ FOLIC ACID TABLET (FP) PO SCH (09:51)
[2018-10-10] MEDS: NICOTINE 21 MG/24 HOURS TOPICAL PATCH TD SCH (09:51)
[2018-10-10] MEDS ORDERED: METHADONE HCL 10 MG TABLET (FOR DETOX USE ONLY) PO ONE (10:00)
--- NOTE | 2018-10-10 18:17 | PN ---
BHS COWS - Scale Resting Pulse: 0= [place] 80 or Below Sweatin= Chills/Flushing Restless Observation: 0= Sits Still Pupil Size: 0= Normal to Room Light Bone or Joint Aches: 2= Severe Diffuse Aches Runny Nose/ Eye Tearin= None GI Upset > 30mins: 1= Stomach Cramp Tremor Observation of Outstretched Hands: 2= Slight Tremor Visible Yawning Observation: 1= 1-2x During Session Anxiety or Irritability: 2=Irritable/Anxious Goose Flesh Skin: 0=Smooth Skin COWS Score: 9 BHS Progress Note (SOAP) Subjective: Body Aches, Stomach Cramping, Sweating, Tremors. Patient Reports That Current Withdrawal symptoms are gradually Reducing in severity. Objective: PATIENT A & O X 3. IN NO ACUTE DISTRESS. 10/10/18 18:19 Vital Signs Temperature 98.4 F 10/10/18 10:21 Pulse Rate 72 10/10/18 10:21 Respiratory Rate 20 10/10/18 10:21 Blood Pressure 143/94 10/10/18 10:21 O2 Sat by Pulse Oximetry (%) Laboratory Tests 10/08/18 10/09/18 10/09/18 22:30 06:45 06:45 WBC 7.3 RBC 4.56 Hgb 13.7 Hct 40.9 D MCV 89.8 MCH 30.2 MCHC 33.6 RDW 13.2 Plt Count 253 D MPV 7.8 Sodium 140 Potassium 4.4 Chloride 104 Carbon Dioxide 30 Anion Gap 5 L BUN 20 H Creatinine 0.9 Creat Clearance w eGFR 93.46 Random Glucose 75 Calcium 8.9 Total Bilirubin 0.2 AST 17 ALT 17 Alkaline Phosphatase 51 Total Protein 7.3 Albumin 3.6 Urine Color Yellow Urine Appearance Clear Urine pH 6.0 Ur Specific [place] 1.023 Urine Protein Trace Urine Glucose (UA) Negative Urine Ketones Trace H Urine Blood Negative Urine Nitrite Negative Urine Bilirubin Negative Urine Urobilinogen 0.2 Ur Leukocyte Esterase Negative RPR Titer 10/09/18 06:45 WBC RBC Hgb Hct MCV MCH MCHC RDW Plt Count MPV Sodium Potassium Chloride Carbon Dioxide Anion Gap BUN Creatinine Creat Clearance w eGFR Random Glucose Calcium Total Bilirubin AST ALT Alkaline Phosphatase Total Protein Albumin Urine Color Urine Appearance Urine pH Ur Specific [place] Urine Protein Urine Glucose (UA) Urine Ketones Urine Blood Urine Nitrite Urine Bilirubin Urine Urobilinogen Ur Leukocyte Esterase RPR Titer Nonreactive LABS NOTED. Assessment: 10/10/18 18:20 WITHDRAWAL SYMPTOMS. Plan: CONTINUE DETOX. INCREASE DAILY PO FLUID / WATER INTAKE. ENCOURAGE AMBULATION.
[2018-10-10] MEDS: THIAMINE HCL 100 MG TABLET (FP) PO SCH (22:07)
[2018-10-11] MEDS ORDERED: METHADONE HCL 10 MG TABLET (FOR DETOX USE ONLY) PO ONE (10:00)
[2018-10-11] MEDS: PRENATAL VITAMINS W/ FOLIC ACID TABLET (FP) PO SCH (10:11)
[2018-10-11] MEDS: NICOTINE 21 MG/24 HOURS TOPICAL PATCH TD SCH (10:11)
[2018-10-11 14:33] VITALS: BP 135/88; PULSE 67; TEMP 97
--- NOTE | 2018-10-11 15:10 | PN ---
BHS COWS - Scale Resting Pulse: 0= [place] 80 or Below Sweatin= Chills/Flushing Restless Observation: 0= Sits Still Pupil Size: 0= Normal to Room Light Bone or Joint Aches: 1= Mild Discomfort Runny Nose/ Eye Tearin= Nasal Congestion GI Upset > 30mins: 1= Stomach Cramp Tremor Observation of Outstretched Hands: 1= Tremor [place], Not Seen Yawning Observation: 1= 1-2x During Session Anxiety or Irritability: 1=Feels Anxious/Irritable Goose Flesh Skin: 0=Smooth Skin COWS Score: 7
--- NOTE | 2018-10-11 15:31 | DS ---
[facility] Detox Discharge Summary Admission Date: 10/08/18 Discharge Date: 10/11/18 - History Present History: Opioid Dependence Additional Comments: 38 years old male admitted on 10/08/18 for opiate withdrawal stabilization feeling ok today denies nausea denies vomiting "I was coughing in my room" alert no acute distress denies suicidal ideation after[facility] Pertinent Past History: patient wants to bring some clothing and taking care of family bossiness patient agrees to return to [facility] to be admitted to [facility] rehab - Physical Exam Results Vital Signs: Vital Signs Temperature 97.0 F L 10/11/18 14:32 Pulse Rate 67 10/11/18 14:32 Respiratory Rate 20 10/11/18 14:32 Blood Pressure 135/88 10/11/18 14:32 O2 Sat by Pulse Oximetry (%) Pertinent Admission Physical Exam Findings: opiate withdrawal sx Laboratory Last Values WBC 7.3 K/mm3 (4.0-10.0) 10/09/18 06:45 RBC 4.56 M/mm3 (4.00-5.60) 10/09/18 06:45 Hgb 13.7 GM/dL (11.7-16.9) 10/09/18 06:45 Hct 40.9 % (35.4-49) D 10/09/18 06:45 MCV 89.8 fl (80-96) 10/09/18 06:45 MCH 30.2 pg (25.7-33.7) 10/09/18 06:45 MCHC 33.6 g/dl (32.0-35.9) 10/09/18 06:45 RDW 13.2 % (11.9-15.9) 10/09/18 06:45 Plt Count 253 K/MM3 (134-434) D 10/09/18 06:45 MPV 7.8 fl (7.5-11.1) 10/09/18 06:45 Sodium 140 mmol/L (136-145) 10/09/18 06:45 Potassium 4.4 mmol/L (3.5-5.1) 10/09/18 06:45 Chloride 104 mmol/L (98-107) 10/09/18 06:45 Carbon Dioxide 30 mmol/L (21-32) 10/09/18 06:45 Anion Gap 5 MMOL/L (8-16) L 10/09/18 06:45 BUN 20 mg/dL (7-18) H 10/09/18 06:45 Creatinine 0.9 mg/dL (0.55-1.3) 10/09/18 06:45 Creat Clearance w eGFR 93.46 (>60) 10/09/18 06:45 Random Glucose 75 mg/dL (74-106) 10/09/18 06:45 Calcium 8.9 mg/dL (8.5-10.1) 10/09/18 06:45 Total Bilirubin 0.2 mg/dL (0.2-1) 10/09/18 06:45 AST 17 U/L (15-37) 10/09/18 06:45 ALT 17 U/L (13-61) 10/09/18 06:45 Alkaline Phosphatase 51 U/L (45-117) 10/09/18 06:45 Total Protein 7.3 g/dl (6.4-8.2) 10/09/18 06:45 Albumin 3.6 g/dl (3.4-5.0) 10/09/18 06:45 Urine Color Yellow 10/08/18 22:30 Urine Appearance Clear 10/08/18 22:30 Urine pH 6.0 (5.0-8.0) 10/08/18 22:30 Ur Specific [place] 1.023 (1.010-1.035) 10/08/18 22:30 Urine Protein Trace (NEGATIVE) 10/08/18 22:30 Urine Glucose (UA) Negative (NEGATIVE) 10/08/18 22:30 Urine Ketones Trace (NEGATIVE) H 10/08/18 22:30 Urine Blood Negative (NEGATIVE) 10/08/18 22:30 Urine Nitrite Negative (NEGATIVE) 10/08/18 22:30 Urine Bilirubin Negative (NEGATIVE) 10/08/18 22:30 Urine Urobilinogen 0.2 mg/dL (0.2-1.0) 10/08/18 22:30 Ur Leukocyte Esterase Negative (NEGATIVE) 10/08/18 22:30 RPR Titer Nonreactive (NONREACTIVE) 10/09/18 06:45 lab noted - Treatment Hospital Course: Detox Protocol Followed, Detoxed Safely, Responded well, Discharged Condition Good, Rehab Referral Accepted Patient has Accepted a Rehab Referral to: [facility] - Medication Discharge Medications: Ambulatory Orders Ibuprofen [Motrin -] 800 mg PO PRN 05/01/18 - Diagnosis (1) Hepatitis C antibody positive in blood Status: Chronic (2) Substance induced mood disorder Status: Suspected (3) Hepatitis C, chronic Status: Chronic Qualifiers: Hepatic coma status: without hepatic coma Qualified Code(s): B18.2 - Chronic viral hepatitis C (4) Nicotine dependence Status: Acute Qualifiers: Nicotine product type: cigarettes Substance use status: in withdrawal Qualified Code(s): F17.213 - Nicotine dependence, cigarettes, with withdrawal (5) Substance induced mood disorder Status: Suspected - AMA Did Patient Leave Against Medical Advice: No
[2018-10-12] MEDS ORDERED: METHADONE HCL 5 MG TABLET (FOR DETOX USE ONLY) PO ONE (06:00)
== END 2018-10-11 14:52 | disposition home or self-care (01) | DRG 773 ==
LOC: YASAS 13:06 → Y3N 17:56
PROVIDERS: ADMIT Neuromusculoskeletal Medicine & OMM; ATTEND Neuromusculoskeletal Medicine & OMM
PROC: HZ2ZZZZ Detoxification Services for Substance Abuse Treatment (ICD-10-PCS; principal; 2018-10-08)
DX: F11.23 Opioid dependence with withdrawal (principal); F14.20 Cocaine dependence, uncomplicated; F17.213 Nicotine dependence, cigarettes, with withdrawal; F19.24 Other psychoactive substance dependence with psychoactive substance-induced mood disorder; I10 Essential (primary) hypertension; G47.00 Insomnia, unspecified; B18.2 Chronic viral hepatitis C
CPT/HCPCS: 36415; 80053; 81003; 85027; 86593; 90832; J0735

== ENCOUNTER 2019-05-14 20:03 | Inpatient (IN) | payer OTHER ==
[2019-05-14 23:33] VITALS: BMI 25.0
--- NOTE | 2019-05-15 00:09 | HP ---
COWS - Scale Resting Pulse: 0= [place] 80 or Below Sweatin= Beads of Sweat on Face Restless Observation: 1= Difficult to Sit Still Pupil Size: 1= Pupils >than Normal Bone or Joint Aches: 4=Acute Joint/Muscle Pain Runny Nose/ Eye Tearin= Runny Nose/Eyes GI Upset > 30mins: 1= Stomach Cramp Tremor Observation: 1= Tremor [place], Not Seen Yawning Observation: 1= 1-2x During Session Anxiety or Irritability: 2=Irritable/Anxious Goose Flesh Skin: 0=Smooth Skin COWS Score: 16 CIWA Score Nausea/Vomitin-Mild Nausea/No Vomiting Muscle Tremors: 1-None Visible, but [place] Anxiety: 4-Mod. Anxious/Guarded Agitation: 4-Moderately Restless Paroxysmal Sweats: 4-Forehead w/Sweat Beads Orientation: 1-Uncertain about Date Tacttile Disturbances: 2-Mild Itch/Numbness/Burn (itch) Auditory Disturbances: 0-None Visual Disturbances: 2-Mild Sensitivity Headache: 3-Moderate CIWA-Ar Total Score: 22 - Admission Criteria OASAS Guidelines: Admission for Medically Managed Detox: Requires at least one of the followin. CIWA greater than 12 2. Seizures within the past 24 hours 3. Delirium tremens within the past 24 hours 4. Hallucinations within the past 24 hours 5. Acute intervention needed for co occurring medical disorder 6. Acute intervention needed for co occurring psychiatric disorder 7. Severe withdrawal that cannot be handled at a lower level of care (continued vomiting, continued diarrhea, abnormal vital signs) requiring intravenous medication and/or fluids 8. Patient presents the following: CIWA greater than 12, Acute intervention needed for co-occurring med or psych disorder (elevated bp) Admission Criteria Met: Admission criteria met Admitting History and Physical - Smoking History Smoking history: Current every day smoker Have you smoked in the past 12 months: Yes Aproximately how many cigarettes per day: 60 - Alcohol/Substance Use Hx Alcohol Use: Yes Admission ROS S - HPI Chief Complaint: seeking detox for benzo/heroin dep Allergies/Adverse Reactions: Allergies Allergy/AdvReac Type Severity Reaction Status Date / Time No Known Allergies Allergy Verified 02/02/19 00:13 History of Present Illness: here for detox from heroin and benzo. self referred. last here 01/2019. client reports relapsing 1 month after using xanax and heroin daily approx 15 sticks and 40 bags. +ivdu, drug over dose. last being 11 months ago. denies seizures, + black outs. longest clean time 8 months. denies any significant period this past year. lives with family, unemployed, denies legals Exam Limitations: No Limitations - Ebola screening Have you traveled outside of the country in the last 21 days: No ([place]) Have you had contact with anyone from an Ebola affected area: No Do you have a fever: No - Review of Systems Constitutional: Chills, Loss of Appetite, Malaise, Night Sweats, Changes in sleep, Weakness EENT: reports: Nose Congestion (rinorrhea), Dental Problems (missing teeth), Other (watery eyes) Respiratory: reports: No Symptoms reported Cardiac: reports: No Symptoms Reported GI: reports: Nausea, Poor Appetite, Poor Fluid Intake : reports: No Symptoms Reported Musculoskeletal: reports: Back Pain, Joint Pain Integumentary: reports: Flushing, Sweating Neuro: reports: Headache, Tremors, Dizziness Endocrine: reports: No Symptoms Reported Hematology: reports: No Symptoms Reported Psychiatric: reports: Anxious Other Systems: Reviewed and Negative Patient History - Patient Medical History Hx Anemia: No Hx Asthma: No Hx Chronic Obstructive Pulmonary Disease (COPD): No Hx Cancer: No Hx Cardiac Disorders: No Hx Congestive Heart Failure: No Hx Hypertension: Yes (borderline) Hx Hypercholesterolemia: No Hx Pacemaker: No HX Cerebrovascular Accident: No Hx Seizures: No Hx Dementia: No Hx Diabetes: No Hx Gastrointestinal Disorders: No Hx Liver Disease: No Hx Genitourinary Disorders: No Hx Sexually Transmitted Disorders: Yes (genital warts ) Hx Renal Disease (ESRD): No Hx Thyroid Disease: No Hx Human Immunodeficiency Virus (HIV): No Hx Hepatitis C: Yes (tx'd ) Hx Depression: No Hx Suicide Attempt: No Hx Bipolar Disorder: No Hx Schizophrenia: No Other Medical History: denies - Patient Surgical History Past Surgical History: Yes Hx Neurologic Surgery: No Hx Cataract Extraction: No Hx Cardiac Surgery: No Hx Lung Surgery: No Hx Breast Surgery: No Hx Breast Biopsy: No Hx Abdominal Surgery: No Hx Appendectomy: No Hx Cholecystectomy: No Hx Genitourinary Surgery: No Hx Section: No Hx Orthopedic Surgery: Yes Other Surgical History: bilateral fx of mandible in 2001 Anesthesia Reaction: No - PPD History Previous Implant?: Yes Documented Results: Negative w/proof Implanted On Prior [facility] Admission?: Yes Date: 10/26/17 Results: 0MM PPD to be Administered?: Yes - Smoking Cessation Smoking history: Current every day smoker Have you smoked in the past 12 months: Yes Aproximately how many cigarettes per day: 60 Cigars Per Day: 0 Hx Chewing Tobacco Use: No Initiated information on smoking cessation: Yes 'Breaking Loose' booklet given: 05/15/19 - Substance & Tx. History Hx Alcohol Use: Yes Hx Substance Use: Yes Substance Use Type: Alcohol, Heroin, Tranquilizers (xanax) Hx Substance Use Treatment: No ([facility]) - Substances abused Heroin Substance route: Injection Frequency: Daily Amount used: 4 bundles Age of first use: 23 Date of last use: 05/14/19 Cocaine Substance route: Injection Frequency: Daily Amount used: 4 grams Age of first use: 14 Date of last use: 05/14/19 Alcohol Other (specify): LIQUOR Substance route: Oral Frequency: Daily Amount used: 1pint Age of first use: 13 Date of last use: 05/14/19 Alprazolam (Xanax) Substance route: Oral Frequency: Daily Amount used: 15 sticks Age of first use: 36 Date of last use: 05/14/19 (3 sticks) Admission Physical Exam S - Vital Signs Vital Signs: Vital Signs - 24 hr 05/14/19 23:20 Temperature 97.5 F L Pulse Rate 68 Respiratory 16 Rate Blood Pressure 158/96 - Physical General Appearance: Yes: Moderate Distress, Sweating, Anxious HEENTM: Yes: EOMI, Normocephalic, Normal Voice, LUBNA, Pharynx Normal, Other ( missing teeth) Respiratory: Yes: Chest Non-Tender, Lungs Clear, Normal Breath Sounds, No Respiratory Distress, No Accessory Muscle Use Neck: Yes: No masses,lesions,Nodules, Supple, Trachea in good position Breast: Yes: Breasts Symetrical Cardiology: Yes: Regular Rhythm, Regular Rate, S1, S2 Abdominal: Yes: Non Tender, Flat, Decreased BS Genitourinary: Yes: Within Normal Limits Back: Yes: Normal Inspection Musculoskeletal: Yes: full range of Motion, Gait Steady Extremities: Yes: Normal Range of Motion, Non-Tender, Other (track [place] to arms hands and r ankle) Neurological: Yes: Fully Oriented, Alert, Motor Strength 5/5, Depressed Affect ( decliens psych servces. denies si/hi-situational) Integumentary: Yes: Cold (cool), [place]am[place], Track [place] Lymphatic: Yes: Within Normal Limits - Diagnostic (1) Alcohol dependence with uncomplicated withdrawal Current Visit: Yes Status: Acute (2) Cocaine dependence, uncomplicated Current Visit: Yes Status: Acute (3) Opioid dependence with withdrawal Current Visit: Yes Status: Acute (4) Sedative hypnotic or anxiolytic dependence Current Visit: Yes Status: Acute (5) 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 Current Visit: Yes Status: Acute Comment: pt preparing to go to rehab discussed risks a/w substance use, particularly ivdu, risk for infection, septicemia/bacteremia, endocarditis, risk for overdose; discussed risk reduction , prevention of infection, avoid reusing needles, avoid sharing needles/ equipment, discussed availability of needle exchange program, prevention of overdose (6) Hypertension Current Visit: Yes Status: Acute Qualifiers: Hypertension type: unspecified Qualified Code(s): I10 - Essential (primary ) hypertension Comment: check ecg - official reading pending check labs, incl. 24h urine r/o pheochromocytoma start hctz 12.5mg po daily; discussed sports medicine specialist, se, and ae, low salt diet, importance of bp control, risk for cva, mi, ckd, or other end organ damage, advised to go to er if any sxs mi/cva [place] (call 911); avoid cocaine use; smoking cessation refer to cardio - appt today w/ Dr. Velasquez's office. f/u friday for bp check/reassessment (7) Nicotine dependence Current Visit: Yes Status: Chronic Qualifiers: Nicotine product type: cigarettes Substance use status: in withdrawal Qualified Code(s): F17.213 - Nicotine dependence, cigarettes, with withdrawal Comment: discussed smoking cessation, risks a/w smoking, benefits of cessation (8) Uncomplicated sedative, hypnotic, or anxiolytic withdrawal Current Visit: Yes Status: Acute Cleared for Admission S - Detox or Rehab S Level of Care: Medically Managed Detox Regimen/Protocol: Methadone/Valium Claeared for Rehab Admission: No Breathalyzer - Breathalyzer Breathalyzer: 0 Urine Drug Screen - Test Device Lot number: [id number] Expiration date: 01/12/21 - Control Is test valid?: Yes - Results Drug screen NEGATIVE: No Urine drug screen results: JETT-Cocaine, FEN-Fentanyl, MOP-Opiates, BZO- Benzodiazepines Inpatient Rehab Admission - Rehab Decision to Admit Inpatient rehab admission?: No
[2019-05-15] MEDS ORDERED: guaiFENesin 200 MG/10 ML 10 ML UNIT-DOSE CUPS PO PRN (00:16)
[2019-05-15] MEDS ORDERED: diazePAM 5 MG TABLET PO ONE (00:16)
[2019-05-15] MEDS ORDERED: MAGNESIUM CITRATE 300 ML BOTTLE PO PRN (00:16)
[2019-05-15] MEDS ORDERED: ONDANSETRON *ODT* 4 MG TABLET SL PRN (00:16)
[2019-05-15] MEDS ORDERED: BISMUTH SUBSALICYLATE 524 MG/30 ML UD PO PRN (00:16)
[2019-05-15] MEDS ORDERED: ACETAMINOPHEN 325 MG TABLET (FP) PO PRN ×2 (00:16)
[2019-05-15] MEDS ORDERED: P-EPHED 60MG/TRIPROLIDI 2.5MG TABLET PO PRN (00:16)
[2019-05-15] MEDS ORDERED: NALOXONE HCL 0.4 MG/ML VIAL IM PRN (00:16)
[2019-05-15] MEDS ORDERED: MELATONIN 5 MG TABLETS PO PRN (00:16)
[2019-05-15] MEDS ORDERED: DICYCLOMINE HCL 10 MG CAPSULE PO PRN (00:16)
[2019-05-15] MEDS ORDERED: MAGNESIUM HYDROX 2400MG/30ML ORAL SUSPENSION 30 ML CUP PO PRN (00:16)
[2019-05-15] MEDS ORDERED: MENTHOL/PHENOL 1 EACH UD MM PRN (00:16)
[2019-05-15] MEDS ORDERED: NICOTINE POLACRILEX 4 MG GUM BUC PRN (00:16)
[2019-05-15] MEDS ORDERED: METHADONE HCL 10 MG TABLET (FOR DETOX USE ONLY) PO ONE (00:16)
[2019-05-15] MEDS ORDERED: hydrOXYzine PAMOATE 25 MG CAPSULE (FP) PO PRN (00:16)
[2019-05-15] MEDS ORDERED: MAG HYDROX/AL HYDROX/SIMETH 30 ML UNIT-DOSE CUP PO PRN (00:16)
[2019-05-15] MEDS: diazePAM 5 MG TABLET PO SCH ×3 (06:41→22:13)
[2019-05-15] MEDS ORDERED: METHADONE HCL 5 MG TABLET (FOR DETOX USE ONLY) PO ONE (10:00)
[2019-05-15] MEDS: NICOTINE 21 MG/24 HOURS TOPICAL PATCH TD SCH (10:43)
[2019-05-15] MEDS: PRENATAL VITAMINS W/ FOLIC ACID TABLET (FP) PO SCH (10:44)
[2019-05-15 10:50] LABS: ALBUMIN 3.6 g/dl (3.4-5.0); BILIRUBIN,TOTAL 0.4 mg/dL (0.2-1); BLOOD UREA NITROGEN 20.8 mg/dL (7-18); CREATININE 0.8 mg/dL (0.55-1.3); TOT PROT 6.8 g/dl (6.4-8.2)
[2019-05-15 11:09] LABS: HEMATOCRIT 35.7 % (35.4-49); HEMOGLOBIN 12.2 GM/dL (11.7-16.9); MCH 30.1 pg (25.7-33.7); MCHC 34.3 g/dl (32.0-35.9); MEAN CELL VOLUME 87.9 fl (80-96); MEAN PLT VOLUME 7.5 fl (7.5-11.1); PLATELET COUNT 297 K/MM3 (134-434); RBC 4.06 M/mm3 (4.00-5.60); RDW 13.9 % (11.9-15.9); WHITE BLOOD COUNT 6.1 K/mm3 (4.0-10.0)
--- NOTE | 2019-05-15 14:20 | PN ---
[facility] CIWA - CIWA Score Nausea/Vomitin-Mild Nausea/No Vomiting Muscle Tremors: 3 Anxiety: 3 Agitation: 3 Paroxysmal Sweats: 3 Orientation: 0-Oriented Tacttile Disturbances: 0-None Auditory Disturbances: 0-None Visual Disturbances: 0-None Headache: 0-None Present CIWA-Ar Total Score: 13 BHS COWS - Scale Resting Pulse: 1= [place] 81-100 Sweatin= Chills/Flushing Restless Observation: 1= Difficult to Sit Still Pupil Size: 1= Pupils >than Normal Bone or Joint Aches: 2= Severe Diffuse Aches Runny Nose/ Eye Tearin= Nasal Congestion GI Upset > 30mins: 1= Stomach Cramp Tremor Observation of Outstretched Hands: 1= Tremor [place], Not Seen Yawning Observation: 1= 1-2x During Session Anxiety or Irritability: 1=Feels Anxious/Irritable Goose Flesh Skin: 0=Smooth Skin COWS Score: 11 S Progress Note (SOAP) Subjective: pt here for benzo and opioid detox. Today day #2, came in yesterday O Vital Signs - 24 hr 05/14/19 05/15/19 05/15/19 23:20 01:30 06:00 Temperature 97.5 F L 98.1 F 97.7 F Pulse Rate 68 58 L 53 L Respiratory 16 18 18 Rate Blood Pressure 158/96 146/88 130/76 05/15/19 05/15/19 05/15/19 06:15 09:51 13:37 Temperature 97.9 F 97.8 F Pulse Rate 64 59 L Respiratory 18 16 18 Rate Blood Pressure 129/66 145/76 Laboratory Tests 05/15/19 05/15/19 07:50 07:50 WBC 6.1 RBC 4.06 Hgb 12.2 Hct 35.7 D MCV 87.9 MCH 30.1 MCHC 34.3 RDW 13.9 Plt Count 297 MPV 7.5 Sodium 139 Potassium 4.0 Chloride 104 Carbon Dioxide 28 Anion Gap 7 L BUN 20.8 H Creatinine 0.8 Est GFR (CKD-EPI)AfAm 129.51 Est GFR (CKD-EPI)NonAf 111.74 Random Glucose 88 Calcium 9.0 Total Bilirubin 0.4 AST 14 L ALT 18 Alkaline Phosphatase 51 Total Protein 6.8 Albumin 3.6
[2019-05-15] MEDS: METHOCARBAMOL 500 MG TABLET PO PRN (22:13)
[2019-05-15] MEDS: THIAMINE HCL 100 MG TABLET (FP) PO SCH (22:13)
[2019-05-16] MEDS: diazePAM 5 MG TABLET PO SCH ×2 (05:15→17:59)
[2019-05-16] MEDS ORDERED: METHADONE (DETOX) 20 MG, METHADONE (DETOX) 5 MG PO ONE (10:00)
[2019-05-16] MEDS ORDERED: METHADONE HCL 5 MG TABLET (FOR DETOX USE ONLY) ONE (10:06)
[2019-05-16] MEDS ORDERED: METHADONE HCL 10 MG TABLET (FOR DETOX USE ONLY) ONE (10:06)
[2019-05-16] MEDS: NICOTINE 21 MG/24 HOURS TOPICAL PATCH TD SCH (10:57)
[2019-05-16] MEDS: cloNIDine HCL 0.1 MG TABLET PO PRN ×2 (10:58→22:24)
[2019-05-16] MEDS: PRENATAL VITAMINS W/ FOLIC ACID TABLET (FP) PO SCH (10:58)
[2019-05-16] MEDS ORDERED: SODIUM CHLORIDE NASAL SPRAY 44 ML BOTTLE NS PRN (13:05)
--- NOTE | 2019-05-16 13:05 | PN ---
[facility] CIWA - CIWA Score Nausea/Vomitin-Mild Nausea/No Vomiting Muscle Tremors: 3 Anxiety: 3 Agitation: 3 Paroxysmal Sweats: 2 Orientation: 0-Oriented Tacttile Disturbances: 0-None Auditory Disturbances: 0-None Visual Disturbances: 0-None Headache: 0-None Present CIWA-Ar Total Score: 12 BHS COWS - Scale Resting Pulse: 0= [place] 80 or Below Sweatin= Chills/Flushing Restless Observation: 1= Difficult to Sit Still Pupil Size: 0= Normal to Room Light Bone or Joint Aches: 2= Severe Diffuse Aches Runny Nose/ Eye Tearin= Nasal Congestion GI Upset > 30mins: 0= None Tremor Observation of Outstretched Hands: 2= Slight Tremor Visible Yawning Observation: 1= 1-2x During Session Anxiety or Irritability: 2=Irritable/Anxious Goose Flesh Skin: 0=Smooth Skin COWS Score: 10 [facility] Progress Note (SOAP) Subjective: sweats shakes interrupted sleep agitation nasal congestion body aches Objective: 05/16/19 13:04 Vital Signs Temperature 99.0 F 05/16/19 06:00 Pulse Rate 64 05/16/19 06:00 Respiratory Rate 18 05/16/19 06:00 Blood Pressure 155/89 05/16/19 06:00 O2 Sat by Pulse Oximetry (%) Laboratory Tests 05/15/19 05/15/19 07:50 07:50 WBC 6.1 RBC 4.06 Hgb 12.2 Hct 35.7 D MCV 87.9 MCH 30.1 MCHC 34.3 RDW 13.9 Plt Count 297 MPV 7.5 Sodium 139 Potassium 4.0 Chloride 104 Carbon Dioxide 28 Anion Gap 7 L BUN 20.8 H Creatinine 0.8 Est GFR (CKD-EPI)AfAm 129.51 Est GFR (CKD-EPI)NonAf 111.74 Random Glucose 88 Calcium 9.0 Total Bilirubin 0.4 AST 14 L ALT 18 Alkaline Phosphatase 51 Total Protein 6.8 Albumin 3.6 labs noted aaox3 ambulating no acute distress Assessment: 05/16/19 13:05 withdrawals Plan: continue detox increase fluids ocean spray prn
[2019-05-16] MEDS: diazePAM 5 MG TABLET PO PRN (22:24)
[2019-05-16] MEDS: METHOCARBAMOL 500 MG TABLET PO PRN (22:24)
[2019-05-16] MEDS: THIAMINE HCL 100 MG TABLET (FP) PO SCH (22:26)
[2019-05-17] MEDS ORDERED: diazePAM 5 MG TABLET PO ONE (06:00)
[2019-05-17] MEDS: PRENATAL VITAMINS W/ FOLIC ACID TABLET (FP) PO SCH (09:12)
[2019-05-17] MEDS: NICOTINE 21 MG/24 HOURS TOPICAL PATCH TD SCH (09:12)
[2019-05-17] MEDS: IBUPROFEN 400 MG TABLET (FP) PO PRN ×2 (09:15→22:20)
[2019-05-17] MEDS ORDERED: METHADONE HCL 10 MG TABLET (FOR DETOX USE ONLY) PO ONE (10:00)
--- NOTE | 2019-05-17 10:33 | PN ---
[facility] CIWA - CIWA Score Nausea/Vomitin-No Nausea/No Vomiting Muscle Tremors: 3 Anxiety: 2 Agitation: 2 Paroxysmal Sweats: 1-Minimal Palms Moist Orientation: 0-Oriented Tacttile Disturbances: 0-None Auditory Disturbances: 0-None Visual Disturbances: 0-None Headache: 0-None Present CIWA-Ar Total Score: 8 BHS COWS - Scale Resting Pulse: 0= [place] 80 or Below Sweatin= Chills/Flushing Restless Observation: 1= Difficult to Sit Still Pupil Size: 0= Normal to Room Light Bone or Joint Aches: 1= Mild Discomfort Runny Nose/ Eye Tearin= Nasal Congestion GI Upset > 30mins: 0= None Tremor Observation of Outstretched Hands: 1= Tremor [place], Not Seen Yawning Observation: 1= 1-2x During Session Anxiety or Irritability: 2=Irritable/Anxious Goose Flesh Skin: 0=Smooth Skin COWS Score: 8 [facility] Progress Note (SOAP) Subjective: sweats interrupted sleep agitation body aches Objective: 05/17/19 10:31 Vital Signs Temperature 98.1 F 05/17/19 09:26 Pulse Rate 58 L 05/17/19 09:26 Respiratory Rate 18 05/17/19 09:26 Blood Pressure 147/77 05/17/19 09:26 O2 Sat by Pulse Oximetry (%) Laboratory Tests 05/15/19 05/15/19 07:50 07:50 WBC 6.1 RBC 4.06 Hgb 12.2 Hct 35.7 D MCV 87.9 MCH 30.1 MCHC 34.3 RDW 13.9 Plt Count 297 MPV 7.5 Sodium 139 Potassium 4.0 Chloride 104 Carbon Dioxide 28 Anion Gap 7 L BUN 20.8 H Creatinine 0.8 Est GFR (CKD-EPI)AfAm 129.51 Est GFR (CKD-EPI)NonAf 111.74 Random Glucose 88 Calcium 9.0 Total Bilirubin 0.4 AST 14 L ALT 18 Alkaline Phosphatase 51 Total Protein 6.8 Albumin 3.6 labs noted aaox3 ambulating no acute distress Assessment: 05/17/19 10:32 mild withdrawals Plan: continue detox increase fluids
--- NOTE | 2019-05-17 12:01 | EKG ---
Test Reason : Blood Pressure : / mmHG Vent. Rate : 054 BPM Atrial Rate : 054 BPM P-R Int : 174 ms QRS Dur : 098 ms QT Int : 460 ms P-R-T Axes : 052 045 026 degrees QTc Int : 436 ms SINUS BRADYCARDIA OTHERWISE NORMAL ECG WHEN COMPARED WITH ECG OF 16-OCT-2018 10:43, NO SIGNIFICANT CHANGE WAS FOUND Confirmed by CHRISTOPHER THAKKAR MD ([id number]) on 05/17/2019 12:01:16 PM Referred By: MY Confirmed By:CHRISTOPHER THAKKAR MD
[2019-05-17] MEDS: diazePAM 5 MG TABLET PO PRN (18:53)
[2019-05-17] MEDS: THIAMINE HCL 100 MG TABLET (FP) PO SCH (22:19)
[2019-05-18] MEDS ORDERED: METHADONE HCL 10 MG TABLET (FOR DETOX USE ONLY) ONE (08:42)
[2019-05-18] MEDS ORDERED: METHADONE HCL 5 MG TABLET (FOR DETOX USE ONLY) ONE (08:42)
[2019-05-18] MEDS ORDERED: METHADONE (DETOX) 10 MG, METHADONE (DETOX) 5 MG PO ONE (10:00)
[2019-05-18] MEDS: PRENATAL VITAMINS W/ FOLIC ACID TABLET (FP) PO SCH (10:28)
[2019-05-18] MEDS: NICOTINE 21 MG/24 HOURS TOPICAL PATCH TD SCH (10:29)
[2019-05-18] MEDS: IBUPROFEN 400 MG TABLET (FP) PO PRN (10:31)
--- NOTE | 2019-05-18 10:46 | PN ---
[facility] CIWA - CIWA Score Nausea/Vomitin-No Nausea/No Vomiting Muscle Tremors: 2 Anxiety: 1-Mildly Anxious Agitation: 3 Paroxysmal Sweats: 1-Minimal Palms Moist Orientation: 0-Oriented Tacttile Disturbances: 0-None Auditory Disturbances: 0-None Visual Disturbances: 0-None Headache: 0-None Present CIWA-Ar Total Score: 7 BHS COWS - Scale Resting Pulse: 0= [place] 80 or Below Sweatin= Chills/Flushing Restless Observation: 1= Difficult to Sit Still Pupil Size: 0= Normal to Room Light Bone or Joint Aches: 1= Mild Discomfort Runny Nose/ Eye Tearin= None GI Upset > 30mins: 0= None Tremor Observation of Outstretched Hands: 1= Tremor [place], Not Seen Yawning Observation: 1= 1-2x During Session Anxiety or Irritability: 1=Feels Anxious/Irritable Goose Flesh Skin: 0=Smooth Skin COWS Score: 6 [facility] Progress Note (SOAP) Subjective: sweats mild shakes feeling better Objective: 05/18/19 10:42 Vital Signs Temperature 98.4 F 05/18/19 09:30 Pulse Rate 65 05/18/19 09:30 Respiratory Rate 16 05/18/19 09:30 Blood Pressure 135/72 05/18/19 09:30 O2 Sat by Pulse Oximetry (%) Laboratory Tests 05/15/19 05/15/19 07:50 07:50 WBC 6.1 RBC 4.06 Hgb 12.2 Hct 35.7 D MCV 87.9 MCH 30.1 MCHC 34.3 RDW 13.9 Plt Count 297 MPV 7.5 Sodium 139 Potassium 4.0 Chloride 104 Carbon Dioxide 28 Anion Gap 7 L BUN 20.8 H Creatinine 0.8 Est GFR (CKD-EPI)AfAm 129.51 Est GFR (CKD-EPI)NonAf 111.74 Random Glucose 88 Calcium 9.0 Total Bilirubin 0.4 AST 14 L ALT 18 Alkaline Phosphatase 51 Total Protein 6.8 Albumin 3.6 aaox3 ambulating no acute distress Assessment: 05/18/19 10:46 mild withdrawals Plan: continue detox ua pending
--- NOTE | 2019-05-18 12:36 | PN ---
[facility] Progress Note Note: pt states he has to leave, pt has not completed his detox and want to sign out. Pt was informed that he may be at risk of relapse, seizures, DT's, OD and/or loss, pt chose to sign out AMA.
--- NOTE | 2019-05-18 12:42 | DS ---
[facility] Detox Discharge Summary Admission Date: 05/14/19 - History Present History: Alcohol Dependence, Cocaine Dependence, Opioid Dependence, Sedative Dependence - Physical Exam Results Vital Signs: Vital Signs Temperature 98.4 F 05/18/19 09:30 Pulse Rate 65 05/18/19 09:30 Respiratory Rate 16 05/18/19 09:30 Blood Pressure 135/72 05/18/19 09:30 O2 Sat by Pulse Oximetry (%) Pertinent Admission Physical Exam Findings: pt arrived in withdrawals Vital Signs Temperature 98.4 F 05/18/19 09:30 Pulse Rate 65 05/18/19 09:30 Respiratory Rate 16 05/18/19 09:30 Blood Pressure 135/72 05/18/19 09:30 O2 Sat by Pulse Oximetry (%) aaox3 ambulating no acute distress - Treatment Hospital Course: Rehab Referral Accepted Patient has Accepted a Rehab Referral to: referral provided - Medication Discharge Medications: Ambulatory Orders Ibuprofen [Motrin -] 800 mg PO PRN 05/01/18 - Diagnosis (1) Alcohol dependence with uncomplicated withdrawal Current Visit: Yes Status: Chronic (2) Cocaine dependence, uncomplicated Current Visit: Yes Status: Chronic (3) Hypertension Current Visit: Yes Status: Chronic Qualifiers: Hypertension type: essential hypertension Qualified Code(s): I10 - Essential (primary) hypertension (4) Opioid dependence with withdrawal Current Visit: Yes Status: Chronic (5) Sedative hypnotic or anxiolytic dependence Current Visit: Yes Status: Chronic (6) 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 Current Visit: Yes Status: Acute (7) Uncomplicated sedative, hypnotic, or anxiolytic withdrawal Current Visit: Yes Status: Acute (8) Nicotine dependence Current Visit: Yes Status: Chronic Qualifiers: Nicotine product type: cigarettes Substance use status: uncomplicated Qualified Code(s): F17.210 - Nicotine dependence, cigarettes, uncomplicated (9) Cocaine dependence Current Visit: No Status: Acute Qualifiers: Substance use status: uncomplicated Qualified Code(s): F14.20 - Cocaine dependence, uncomplicated (10) Elevated blood pressure reading in office with diagnosis of hypertension Current Visit: No Status: Acute (11) Substance-induced sleep disorder Current Visit: No Status: Acute (12) Closed L5 vertebral fracture Current Visit: No Status: Chronic (13) Substance induced mood disorder Current Visit: No Status: Suspected (14) Hepatitis C, chronic Current Visit: No Status: Resolved Qualifiers: Hepatic coma status: without hepatic coma Qualified Code(s): B18.2 - Chronic viral hepatitis C - AMA Did Patient Leave Against Medical Advice: Yes
[2019-05-18 13:12] VITALS: BP 133/76; PULSE 76; TEMP 99
[2019-05-19] MEDS ORDERED: METHADONE HCL 10 MG TABLET (FOR DETOX USE ONLY) PO ONE (10:00)
[2019-05-20] MEDS ORDERED: METHADONE HCL 5 MG TABLET (FOR DETOX USE ONLY) PO ONE (06:00)
== END 2019-05-18 12:41 | disposition left against medical advice (07) | DRG 770 ==
LOC: YASAS 20:03 → Y6N 23:56
PROVIDERS: ADMIT Allergy & Immunology; ATTEND Allergy & Immunology
PROC: HZ2ZZZZ Detoxification Services for Substance Abuse Treatment (ICD-10-PCS; principal; 2019-05-14)
DX: F11.23 Opioid dependence with withdrawal (principal); F10.230 Alcohol dependence with withdrawal, uncomplicated; F13.230 Sedative, hypnotic or anxiolytic dependence with withdrawal, uncomplicated; F14.20 Cocaine dependence, uncomplicated; F17.210 Nicotine dependence, cigarettes, uncomplicated; F19.282 Other psychoactive substance dependence with psychoactive substance-induced sleep disorder; F19.24 Other psychoactive substance dependence with psychoactive substance-induced mood disorder; I10 Essential (primary) hypertension; B18.2 Chronic viral hepatitis C; A63.0 Anogenital (venereal) warts; Z86.19 Personal history of other infectious and parasitic diseases
CPT/HCPCS: 36415; 80053; 85027; 86593; 93005; 93010; J0735

== ENCOUNTER 2019-07-12 19:32 | Inpatient (IN) | payer OTHER ==
[2019-07-12 20:47] VITALS: BMI 25.2
--- NOTE | 2019-07-12 21:51 | HP ---
COWS - Scale Resting Pulse: 1= [place] 81-100 Sweatin=Flushed/Facial Moisture Restless Observation: 1= Difficult to Sit Still Pupil Size: 1= Pupils >than Normal Bone or Joint Aches: 4=Acute Joint/Muscle Pain Runny Nose/ Eye Tearin= None GI Upset > 30mins: 2= Nausea/Diarrhea (diarrhea x 2) Tremor Observation: 2= Slight Tremor Visible Yawning Observation: 1= 1-2x During Session Anxiety or Irritability: 4=Extreme Anxiety Goose Flesh Skin: 0=Smooth Skin COWS Score: 18 CIWA Score - Admission Criteria OASAS Guidelines: Admission for Medically Managed Detox: Requires at least one of the followin. CIWA greater than 12 2. Seizures within the past 24 hours 3. Delirium tremens within the past 24 hours 4. Hallucinations within the past 24 hours 5. Acute intervention needed for co occurring medical disorder 6. Acute intervention needed for co occurring psychiatric disorder 7. Severe withdrawal that cannot be handled at a lower level of care (continued vomiting, continued diarrhea, abnormal vital signs) requiring intravenous medication and/or fluids 8. Admitting History and Physical - Smoking History Smoking history: Current every day smoker Have you smoked in the past 12 months: Yes Aproximately how many cigarettes per day: 60 - Alcohol/Substance Use Hx Alcohol Use: Yes Admission ROS [facility] - [facility] Chief Complaint: Heroin withdrawal symptoms Allergies/Adverse Reactions: Allergies Allergy/AdvReac Type Severity Reaction Status Date / Time No Known Allergies Allergy Verified 07/12/19 20:31 History of Present Illness: 39 years old male with 17 years of heroin dependence is seeking admission to detox. Patient has been admitted to detox multiple times, last for the period -05/18/2019. He reports insignificant period of sobriety and states that he relapsed as soon as he left the facility. He has medical history of hypertension, genital warts and Hep. C (treated) and denies psych. history at this time. He overdosed 6 months ago and he reports intermittent blackouts, last about 2 weeks ago. He is unemployed and lives with his parents. He denies suicidal ideation at this time. Patient reports reports that he is anxious and depressed and will appreciate a psych evaluation. Patient has bilateral hands abscess from IVDU. Antibiotics initiated by Dr. Pierce. Medication started on 07/09/2019, Red night. Patient received 2 doses today. To be medicated tonight and an additional 4 days TID to complete order Exam Limitations: No Limitations - Ebola screening Have you traveled outside of the country in the last 21 days: No (N) Have you had contact with anyone from an Ebola affected area: No Do you have a fever: No - Review of Systems Constitutional: Chills, Loss of Appetite, Malaise, Night Sweats, Changes in sleep EENT: reports: Nose Congestion Respiratory: reports: No Symptoms reported Cardiac: reports: No Symptoms Reported GI: reports: Diarrhea, Poor Appetite, Poor Fluid Intake, Abdominal cramping : reports: No Symptoms Reported Musculoskeletal: reports: Back Pain, Joint Pain, Muscle Pain Integumentary: reports: Dryness, Flushing Neuro: reports: Headache, Tremors Endocrine: reports: No Symptoms Reported Hematology: reports: No Symptoms Reported Psychiatric: reports: Mood/Affect Appropiate, Orientated x3 Other Systems: Reviewed and Negative Patient History - Patient Medical History Hx Anemia: No Hx Asthma: No Hx Chronic Obstructive Pulmonary Disease (COPD): No Hx Cancer: No Hx Cardiac Disorders: No Hx Congestive Heart Failure: No Hx Hypertension: Yes (Not on medication) Hx Hypercholesterolemia: No Hx Pacemaker: No HX Cerebrovascular Accident: No Hx Seizures: No Hx Dementia: No Hx Diabetes: No Hx Gastrointestinal Disorders: No Hx Liver Disease: No Hx Genitourinary Disorders: No Hx Sexually Transmitted Disorders: Yes (genital warts - Not on medication) Hx Renal Disease (ESRD): No Hx Thyroid Disease: No Hx Human Immunodeficiency Virus (HIV): No Hx Hepatitis C: Yes (Treated ) Hx Depression: No Hx Suicide Attempt: No Hx Bipolar Disorder: No Hx Schizophrenia: No - Patient Surgical History Past Surgical History: Yes Hx Neurologic Surgery: No Hx Cataract Extraction: No Hx Cardiac Surgery: No Hx Lung Surgery: No Hx Breast Surgery: No Hx Breast Biopsy: No Hx Abdominal Surgery: No Hx Appendectomy: No Hx Cholecystectomy: No Hx Genitourinary Surgery: No Hx Section: No Hx Orthopedic Surgery: Yes Other Surgical History: bilateral fx of mandible in 2001 Anesthesia Reaction: No - PPD History Previous Implant?: Yes Documented Results: Negative w/proof Implanted On Prior [facility] Admission?: Yes Date: 05/17/19 Results: 0MM PPD to be Administered?: No - Reproductive History Patient is a Female of Child Bearing Age (11 -55 yrs old): No (male) - Smoking Cessation Smoking history: Current every day smoker Have you smoked in the past 12 months: Yes Aproximately how many cigarettes per day: 60 Cigars Per Day: 0 Hx Chewing Tobacco Use: No Initiated information on smoking cessation: Yes 'Breaking Loose' booklet given: 07/12/19 - Substance & Tx. History Hx Alcohol Use: No Hx Substance Use: Yes Substance Use Type: Heroin Hx Substance Use Treatment: Yes ([facility]) - Substances abused Heroin Substance route: Injection Frequency: Daily Amount used: 30 bags/day Age of first use: 23 Date of last use: 07/12/19 Cocaine Substance route: Injection Frequency: Daily Amount used: 2grams/day Age of first use: Date of last use: 07/12/19 Admission Physical Exam [facility] - Vital Signs Vital Signs: Vital Signs - 24 hr 07/12/19 20:40 Temperature 98.0 F Pulse Rate 82 Respiratory 16 Rate Blood Pressure 176/100 H - Physical General Appearance: Yes: Moderate Distress, Tremorous, Sweating, Anxious HEENTM: Yes: Within Normal Limits Respiratory: Yes: Lungs Clear, Normal Breath Sounds, No Respiratory Distress Neck: Yes: Within Normal Limits Breast: Yes: Breast Exam Deferred Cardiology: Yes: Tachycardia Abdominal: Yes: Normal Bowel Sounds, Flat Genitourinary: Yes: Within Normal Limits Back: Yes: Normal Inspection Musculoskeletal: Yes: Within Normal Limits Extremities: Yes: Tremors Neurological: Yes: Within Normal Limits, Alert, Normal Mood/Affect Integumentary: Yes: Warm, Track [place] (both arms) Lymphatic: Yes: Within Normal Limits - Diagnostic (1) Genital warts Current Visit: Yes Status: Chronic (2) Cocaine dependence Current Visit: Yes Status: Chronic Qualifiers: Substance use status: uncomplicated Qualified Code(s): F14.20 - Cocaine dependence, uncomplicated (3) 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 Current Visit: Yes Status: Chronic Comment: pt preparing to go to rehab - refuses to go today; states will go this weekend discussed risks a/w substance use, particularly ivdu, risk for infection, septicemia/bacteremia, endocarditis, risk for overdose; discussed risk reduction , prevention of infection, avoid reusing needles, avoid sharing needles/ equipment, pt participates in needle exchange program, prevention of overdose - has narcan at home as well (4) Hypertension Current Visit: Yes Status: Chronic Qualifiers: Hypertension type: unspecified Qualified Code(s): I10 - Essential (primary ) hypertension Comment: pt refuses er referral - refusal signed by pt; discussed risks a/w uncontrolled htn, incl. [place], CVA, end organ damage; discussed risks a/w cocaine and heroin use, risk for mi, cva, overdose, on hctz 12.5mg po daily; discussed importance of bp control, risk for cva, mi, ckd, or other end organ damage, advised to go to er if any sxs mi/cva [place] ( call 911); avoid cocaine use; smoking cessation refer to cardio for f/u f/u 1 wk (5) Nicotine dependence Current Visit: Yes Status: Chronic Qualifiers: Nicotine product type: cigarettes Substance use status: in withdrawal Qualified Code(s): F17.213 - Nicotine dependence, cigarettes, with withdrawal Comment: discussed smoking cessation, risks a/w smoking, benefits of cessation (6) Opioid dependence with withdrawal Current Visit: Yes Status: Acute (7) Hepatitis C, chronic Current Visit: Yes Status: Resolved Qualifiers: Hepatic coma status: without hepatic coma Qualified Code(s): B18.2 - Chronic viral hepatitis C Comment: pt completed mavyret x 8 wks; check viral load for svr today. Cleared for Admission S - Detox or Rehab [facility] Level of Care: Medically Managed Detox Regimen/Protocol: Methadone Claeared for Rehab Admission: No Breathalyzer - Breathalyzer Breathalyzer: 0 Urine Drug Screen - Test Device Lot number: [id number] Expiration date: 01/13/21 - Control Is test valid?: Yes - Results Drug screen NEGATIVE: No Urine drug screen results: JETT-Cocaine, MOP-Opiates, OXY-Oxycodone Inpatient Rehab Admission - Rehab Decision to Admit Inpatient rehab admission?: No
[2019-07-12] MEDS ORDERED: IBUPROFEN 400 MG TABLET (FP) PO PRN (22:16)
[2019-07-12] MEDS ORDERED: MAGNESIUM HYDROX 2400MG/30ML ORAL SUSPENSION 30 ML CUP PO PRN (22:16)
[2019-07-12] MEDS ORDERED: NICOTINE POLACRILEX 2 MG GUM BUC PRN (22:16)
[2019-07-12] MEDS ORDERED: MAGNESIUM CITRATE 300 ML BOTTLE PO PRN (22:16)
[2019-07-12] MEDS ORDERED: BISMUTH SUBSALICYLATE 524 MG/30 ML UD PO PRN (22:16)
[2019-07-12] MEDS ORDERED: MENTHOL/PHENOL 1 EACH UD MM PRN (22:16)
[2019-07-12] MEDS ORDERED: METHOCARBAMOL 500 MG TABLET PO PRN (22:16)
[2019-07-12] MEDS ORDERED: ACETAMINOPHEN 325 MG TABLET (FP) PO PRN ×2 (22:16)
[2019-07-12] MEDS ORDERED: MAG HYDROX/AL HYDROX/SIMETH 30 ML UNIT-DOSE CUP PO PRN (22:16)
[2019-07-12] MEDS ORDERED: METHADONE HCL 10 MG TABLET (FOR DETOX USE ONLY) PO ONE (23:00)
[2019-07-12] MEDS: CLINDAMYCIN HCL 150 MG CAPSULE (FP) PO SCH (23:49)
[2019-07-13] MEDS: CLINDAMYCIN HCL 150 MG CAPSULE (FP) PO SCH ×3 (06:06→22:19)
--- NOTE | 2019-07-13 09:04 | CONSULT ---
[facility] Psychiatric Consult - Data Date of interview: 07/13/19 Admission source: Self-referred Identifying data: Mr Alexandre is a 39 years old single [place]-born male, unemployed, domiciled seeking detox treatment for opioid and cocaine Substance Abuse History: Reports history of heroin and cocaine use. Refer to addiction counselor's summary for further information Medical History: Significant for hypertension, history of treatment for hepatitis C, genital warts and surgery for bilateral fracture of mandibles in 2001. Psychiatric History: Denies history of previous psychiatric treatment. However, reports feeling depressed and sleeping poorly Physical/Sexual Abuse/Trauma History: Denies history of emotional, physical or sexual abuse as well as DV relationship Additional Comment: Reports history of a few arrests including 2 felony convictions. Denies being being on parole/probation Mental Status Exam - Mental Status Exam Alert and Oriented to: Time, Place, Person Cognitive Function: Fair Patient Appearance: Well Groomed Mood: Anxious Affect: Appropriate Patient Behavior: Cooperative Speech Pattern: Clear Voice Loudness: Normal Thought Process: Intact, Goal Oriented Thought Disorder: Not Present Hallucinations: Denies Suicidal Ideation: Denies Homicidal Ideation: Denies Insight/Judgement: Poor Sleep: Poorly Appetite: Good Muscle strength/Tone: Normal Gait/Station: Normal Psychiatric Findings - Problem List ([place] 1, 2,3) (1) Substance-induced anxiety disorder Current Visit: Yes Status: Acute (2) Substance-induced sleep disorder Current Visit: Yes Status: Acute (3) Opioid dependence with withdrawal Current Visit: Yes Status: Acute (4) Cocaine dependence Current Visit: Yes Status: Acute Qualifiers: Substance use status: uncomplicated Qualified Code(s): F14.20 - Cocaine dependence, uncomplicated (5) Nicotine dependence Current Visit: Yes Status: Chronic Qualifiers: Nicotine product type: cigarettes Substance use status: in withdrawal Qualified Code(s): F17.213 - Nicotine dependence, cigarettes, with withdrawal Comment: discussed smoking cessation, risks a/w smoking, benefits of cessation (6) Hypertension Current Visit: Yes Status: Chronic Qualifiers: Hypertension type: unspecified Qualified Code(s): I10 - Essential (primary ) hypertension Comment: pt refuses er referral - refusal signed by pt; discussed risks a/w uncontrolled htn, incl. [place], CVA, end organ damage; discussed risks a/w cocaine and heroin use, risk for mi, cva, overdose, on hctz 12.5mg po daily; discussed importance of bp control, risk for cva, mi, ckd, or other end organ damage, advised to go to er if any sxs mi/cva [place] ( call 911); avoid cocaine use; smoking cessation refer to cardio for f/u f/u 1 wk (7) Hepatitis C, chronic Current Visit: Yes Status: Resolved Qualifiers: Hepatic coma status: without hepatic coma Qualified Code(s): B18.2 - Chronic viral hepatitis C Comment: pt completed mavyret x 8 wks; check viral load for svr today. (8) Genital warts Current Visit: Yes Status: Resolved - Initial Treatment Plan Initial Treatment Plan: 1) Start Belsomra 10 mg po HS prn for insomnia. 2) Continue inpatient detoxification
[2019-07-13] MEDS ORDERED: METHADONE HCL 10 MG TABLET (FOR DETOX USE ONLY) ONE (09:25)
[2019-07-13] MEDS ORDERED: METHADONE HCL 5 MG TABLET (FOR DETOX USE ONLY) ONE (09:25)
[2019-07-13] MEDS ORDERED: METHADONE (DETOX) 20 MG, METHADONE (DETOX) 5 MG PO ONE (10:00)
[2019-07-13] MEDS: PRENATAL VITAMINS W/ FOLIC ACID TABLET (FP) PO SCH (10:49)
[2019-07-13] MEDS: NICOTINE 21 MG/24 HOURS TOPICAL PATCH TD SCH (10:49)
[2019-07-13] MEDS: cloNIDine HCL 0.1 MG TABLET PO PRN (10:50)
[2019-07-13 10:55] LABS: HEMATOCRIT 39.8 % (35.4-49); HEMOGLOBIN 13.3 GM/dL (11.7-16.9); MCH 29.7 pg (25.7-33.7); MCHC 33.5 g/dl (32.0-35.9); MEAN CELL VOLUME 88.6 fl (80-96); MEAN PLT VOLUME 7.8 fl (7.5-11.1); PLATELET COUNT 262 K/MM3 (134-434); RBC 4.49 M/mm3 (4.00-5.60); RDW 12.9 % (11.9-15.9); WHITE BLOOD COUNT 8.7 K/mm3 (4.0-10.0)
[2019-07-13 10:58] LABS: ALBUMIN 3.6 g/dl (3.4-5.0); BILIRUBIN,TOTAL 0.2 mg/dL (0.2-1); BLOOD UREA NITROGEN 22.4 mg/dL (7-18); CALCIUM 8.7 mg/dL (8.5-10.1); CREATININE 0.8 mg/dL (0.55-1.3); POTASSIUM 3.9 mmol/L (3.5-5.1); TOT PROT 6.8 g/dl (6.4-8.2)
--- NOTE | 2019-07-13 11:48 | PN ---
BHS COWS - Scale Resting Pulse: 0= [place] 80 or Below Sweatin= Chills/Flushing Restless Observation: 1= Difficult to Sit Still Pupil Size: 0= Normal to Room Light Bone or Joint Aches: 2= Severe Diffuse Aches Runny Nose/ Eye Tearin= Runny Nose/Eyes GI Upset > 30mins: 0= None Tremor Observation of Outstretched Hands: 2= Slight Tremor Visible Yawning Observation: 2= >3x During Session Anxiety or Irritability: 2=Irritable/Anxious Goose Flesh Skin: 3=Piloerection COWS Score: 15 BHS Progress Note (SOAP) Subjective: sweats shakes body aches irritable interrupted sleep restless Objective: 07/13/19 11:46 Vital Signs Temperature 98.2 F 07/13/19 09:15 Pulse Rate 58 L 07/13/19 09:15 Respiratory Rate 18 07/13/19 09:15 Blood Pressure 151/69 07/13/19 09:15 O2 Sat by Pulse Oximetry (%) Laboratory Tests 07/13/19 07/13/19 07:45 07:45 WBC 8.7 RBC 4.49 Hgb 13.3 Hct 39.8 MCV 88.6 MCH 29.7 MCHC 33.5 RDW 12.9 Plt Count 262 MPV 7.8 Sodium 139 Potassium 3.9 Chloride 106 Carbon Dioxide 28 Anion Gap 6 L BUN 22.4 H Creatinine 0.8 Est GFR (CKD-EPI)AfAm 128.60 Est GFR (CKD-EPI)NonAf 110.96 Random Glucose 94 Calcium 8.7 Total Bilirubin 0.2 AST 18 ALT 20 Alkaline Phosphatase 52 Total Protein 6.8 Albumin 3.6 labs noted elevated BUN; encourage fluids intake repeat BUN in am aaox3 ambulating no acute distress Assessment: 07/13/19 11:47 withdrawals Plan: continue detox increase fluids BUN repeat ordered
--- NOTE | 2019-07-13 15:14 | EKG ---
Test Reason : Blood Pressure : / mmHG Vent. Rate : 056 BPM Atrial Rate : 056 BPM P-R Int : 174 ms QRS Dur : 100 ms QT Int : 462 ms P-R-T Axes : 060 049 039 degrees QTc Int : 445 ms SINUS BRADYCARDIA OTHERWISE NORMAL ECG WHEN COMPARED WITH ECG OF 15-MAY-2019 01:33, NO SIGNIFICANT CHANGE WAS FOUND Confirmed by Brooks Zacarias MD ([id number]) on 07/13/2019 3:14:20 PM Also confirmed by MD Jesus, Daniel ([id number]) on 07/13/2019 3:14:36 PM Referred By: Arnold Valentine Confirmed By:Daniel Lee MD
[2019-07-13] MEDS: THIAMINE HCL 100 MG TABLET (FP) PO SCH (22:20)
[2019-07-14] MEDS: CLINDAMYCIN HCL 150 MG CAPSULE (FP) PO SCH ×3 (06:07→22:11)
[2019-07-14] MEDS ORDERED: METHADONE HCL 10 MG TABLET (FOR DETOX USE ONLY) PO ONE (10:00)
[2019-07-14] MEDS: NICOTINE 21 MG/24 HOURS TOPICAL PATCH TD SCH (10:24)
[2019-07-14] MEDS: PRENATAL VITAMINS W/ FOLIC ACID TABLET (FP) PO SCH (10:24)
--- NOTE | 2019-07-14 10:51 | PN ---
BHS COWS - Scale Resting Pulse: 0= [place] 80 or Below Sweatin= Chills/Flushing Restless Observation: 1= Difficult to Sit Still Pupil Size: 0= Normal to Room Light Bone or Joint Aches: 1= Mild Discomfort Runny Nose/ Eye Tearin= Runny Nose/Eyes GI Upset > 30mins: 0= None Tremor Observation of Outstretched Hands: 1= Tremor [place], Not Seen Yawning Observation: 1= 1-2x During Session Anxiety or Irritability: 2=Irritable/Anxious Goose Flesh Skin: 0=Smooth Skin COWS Score: 9 BHS Progress Note (SOAP) Subjective: sweats body aches shakes interrupted sleep agitation Objective: 07/14/19 10:50 Vital Signs Temperature 97.9 F 07/14/19 09:16 Pulse Rate 65 07/14/19 09:16 Respiratory Rate 16 07/14/19 09:16 Blood Pressure 146/85 07/14/19 09:16 O2 Sat by Pulse Oximetry (%) Laboratory Tests 07/13/19 07/13/19 07/13/19 07:45 07:45 07:45 WBC 8.7 RBC 4.49 Hgb 13.3 Hct 39.8 MCV 88.6 MCH 29.7 MCHC 33.5 RDW 12.9 Plt Count 262 MPV 7.8 Sodium 139 Potassium 3.9 Chloride 106 Carbon Dioxide 28 Anion Gap 6 L BUN 22.4 H Creatinine 0.8 Est GFR (CKD-EPI)AfAm 128.60 Est GFR (CKD-EPI)NonAf 110.96 Random Glucose 94 Calcium 8.7 Total Bilirubin 0.2 AST 18 ALT 20 Alkaline Phosphatase 52 Total Protein 6.8 Albumin 3.6 RPR Titer Nonreactive 07/14/19 07:30 WBC RBC Hgb Hct MCV MCH MCHC RDW Plt Count MPV Sodium Potassium Chloride Carbon Dioxide Anion Gap BUN 19.0 H Creatinine Est GFR (CKD-EPI)AfAm Est GFR (CKD-EPI)NonAf Random Glucose Calcium Total Bilirubin AST ALT Alkaline Phosphatase Total Protein Albumin RPR Titer BUN improving aaox3 ambulating no acute distress Assessment: 07/14/19 10:51 withdrawals Plan: continue detox increase fluids
[2019-07-14] MEDS: THIAMINE HCL 100 MG TABLET (FP) PO SCH (22:11)
[2019-07-14] MEDS: MELATONIN 5 MG TABLETS PO PRN (22:14)
[2019-07-14] MEDS: cloNIDine HCL 0.1 MG TABLET PO PRN (22:14)
[2019-07-15] MEDS: CLINDAMYCIN HCL 150 MG CAPSULE (FP) PO SCH ×3 (06:19→22:06)
[2019-07-15] MEDS ORDERED: METHADONE HCL 10 MG TABLET (FOR DETOX USE ONLY) ONE (08:54)
[2019-07-15] MEDS ORDERED: METHADONE HCL 5 MG TABLET (FOR DETOX USE ONLY) ONE (08:54)
[2019-07-15] MEDS ORDERED: METHADONE (DETOX) 10 MG, METHADONE (DETOX) 5 MG PO ONE (10:00)
[2019-07-15] MEDS: NICOTINE 21 MG/24 HOURS TOPICAL PATCH TD SCH (10:21)
[2019-07-15] MEDS: PRENATAL VITAMINS W/ FOLIC ACID TABLET (FP) PO SCH (10:22)
--- NOTE | 2019-07-15 12:03 | PN ---
BHS COWS - Scale Resting Pulse: 0= [place] 80 or Below Sweatin= Chills/Flushing Restless Observation: 1= Difficult to Sit Still Pupil Size: 0= Normal to Room Light Bone or Joint Aches: 1= Mild Discomfort Runny Nose/ Eye Tearin= Nasal Congestion GI Upset > 30mins: 0= None Tremor Observation of Outstretched Hands: 1= Tremor [place], Not Seen Yawning Observation: 1= 1-2x During Session Anxiety or Irritability: 1=Feels Anxious/Irritable Goose Flesh Skin: 0=Smooth Skin COWS Score: 7 BHS Progress Note (SOAP) Subjective: sweats feeling better interrupted sleep Objective: 07/15/19 12:02 Vital Signs Temperature 98.6 F 07/15/19 09:26 Pulse Rate 71 07/15/19 09:26 Respiratory Rate 17 07/15/19 09:26 Blood Pressure 133/73 07/15/19 09:26 O2 Sat by Pulse Oximetry (%) aaox3 ambulating no acute distress Assessment: 07/15/19 12:02 withdrawals Plan: continue detox
[2019-07-15] MEDS: THIAMINE HCL 100 MG TABLET (FP) PO SCH (22:06)
[2019-07-15] MEDS: MELATONIN 5 MG TABLETS PO PRN (22:07)
[2019-07-16] MEDS: CLINDAMYCIN HCL 150 MG CAPSULE (FP) PO SCH (05:47)
[2019-07-16 06:24] VITALS: TEMP 98.2
[2019-07-16] MEDS ORDERED: ONDANSETRON *ODT* 4 MG TABLET SL PRN (09:11)
[2019-07-16 09:53] VITALS: BP 150/79; PULSE 72
[2019-07-16] MEDS ORDERED: METHADONE HCL 10 MG TABLET (FOR DETOX USE ONLY) PO ONE (10:00)
[2019-07-16] MEDS: PRENATAL VITAMINS W/ FOLIC ACID TABLET (FP) PO SCH (10:56)
[2019-07-16] MEDS: NICOTINE 21 MG/24 HOURS TOPICAL PATCH TD SCH (10:57)
--- NOTE | 2019-07-16 11:42 | PN ---
BHS COWS - Scale Resting Pulse: 0= [place] 80 or Below Sweatin= No chills or Flushing Restless Observation: 1= Difficult to Sit Still Pupil Size: 0= Normal to Room Light Bone or Joint Aches: 1= Mild Discomfort Runny Nose/ Eye Tearin= None GI Upset > 30mins: 2= Nausea/Diarrhea Tremor Observation of Outstretched Hands: 0= None Yawning Observation: 0= None Anxiety or Irritability: 1=Feels Anxious/Irritable Goose Flesh Skin: 0=Smooth Skin COWS Score: 5 S Progress Note (SOAP) Subjective: nausea I feel so much better. I will like to go home today. Objective: 07/16/19 11:41 Vital Signs Temperature 98.2 F 07/16/19 09:52 Pulse Rate 72 07/16/19 09:52 Respiratory Rate 17 07/16/19 09:52 Blood Pressure 150/79 07/16/19 09:52 O2 Sat by Pulse Oximetry (%) aaox3 ambulating no acute distress Assessment: 07/16/19 11:41 zofran prn mild to no withdrawals noted Plan: pt will receive his last dose of methadone d/c today.
--- NOTE | 2019-07-16 11:56 | DS ---
[facility] Detox Discharge Summary Admission Date: 07/12/19 Discharge Date: 07/16/19 - History Present History: Cocaine Dependence, Opioid Dependence - Physical Exam Results Vital Signs: Vital Signs Temperature 98.2 F 07/16/19 09:52 Pulse Rate 72 07/16/19 09:52 Respiratory Rate 17 07/16/19 09:52 Blood Pressure 150/79 07/16/19 09:52 O2 Sat by Pulse Oximetry (%) Pertinent Admission Physical Exam Findings: Vital Signs Temperature 98.2 F 07/16/19 09:52 Pulse Rate 72 07/16/19 09:52 Respiratory Rate 17 07/16/19 09:52 Blood Pressure 150/79 07/16/19 09:52 O2 Sat by Pulse Oximetry (%) Laboratory Tests 07/13/19 07/13/19 07/13/19 07:45 07:45 07:45 WBC 8.7 RBC 4.49 Hgb 13.3 Hct 39.8 MCV 88.6 MCH 29.7 MCHC 33.5 RDW 12.9 Plt Count 262 MPV 7.8 Sodium 139 Potassium 3.9 Chloride 106 Carbon Dioxide 28 Anion Gap 6 L BUN 22.4 H Creatinine 0.8 Est GFR (CKD-EPI)AfAm 128.60 Est GFR (CKD-EPI)NonAf 110.96 Random Glucose 94 Calcium 8.7 Total Bilirubin 0.2 AST 18 ALT 20 Alkaline Phosphatase 52 Total Protein 6.8 Albumin 3.6 RPR Titer Nonreactive 07/14/19 07:30 WBC RBC Hgb Hct MCV MCH MCHC RDW Plt Count MPV Sodium Potassium Chloride Carbon Dioxide Anion Gap BUN 19.0 H Creatinine Est GFR (CKD-EPI)AfAm Est GFR (CKD-EPI)NonAf Random Glucose Calcium Total Bilirubin AST ALT Alkaline Phosphatase Total Protein Albumin RPR Titer aaox3 ambulating no acute distress - Treatment Hospital Course: Detox Protocol Followed, Detoxed Safely, Responded well, Discharged Condition Good, Rehab Referral Accepted - Diagnosis (1) Cocaine dependence Current Visit: Yes Status: Acute Qualifiers: Substance use status: uncomplicated Qualified Code(s): F14.20 - Cocaine dependence, uncomplicated (2) Opioid dependence with withdrawal Current Visit: Yes Status: Chronic (3) Substance-induced anxiety disorder Current Visit: Yes Status: Acute (4) Substance-induced sleep disorder Current Visit: Yes Status: Acute (5) Hypertension Current Visit: Yes Status: Chronic Qualifiers: Hypertension type: unspecified Qualified Code(s): I10 - Essential (primary ) hypertension (6) Nicotine dependence Current Visit: Yes Status: Chronic Qualifiers: Nicotine product type: cigarettes Substance use status: uncomplicated Qualified Code(s): F17.210 - Nicotine dependence, cigarettes, uncomplicated (7) 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 Current Visit: Yes Status: Chronic (8) Hepatitis C, chronic Current Visit: Yes Status: Chronic Qualifiers: Hepatic coma status: without hepatic coma Qualified Code(s): B18.2 - Chronic viral hepatitis C (9) Substance-induced sleep disorder Current Visit: No Status: Acute (10) Closed L5 vertebral fracture Current Visit: No Status: Chronic (11) Cocaine dependence, uncomplicated Current Visit: No Status: Chronic (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
[2019-07-17] MEDS ORDERED: METHADONE HCL 5 MG TABLET (FOR DETOX USE ONLY) PO ONE (06:00)
== END 2019-07-16 12:25 | disposition home or self-care (01) | DRG 773 ==
LOC: YASAS 19:32 → Y6N 22:47
PROVIDERS: ADMIT Allergy & Immunology; ATTEND Allergy & Immunology
PROC: HZ2ZZZZ Detoxification Services for Substance Abuse Treatment (ICD-10-PCS; principal; 2019-07-12)
DX: F11.23 Opioid dependence with withdrawal (principal); F14.20 Cocaine dependence, uncomplicated; F17.210 Nicotine dependence, cigarettes, uncomplicated; F19.280 Other psychoactive substance dependence with psychoactive substance-induced anxiety disorder; F19.282 Other psychoactive substance dependence with psychoactive substance-induced sleep disorder; F19.24 Other psychoactive substance dependence with psychoactive substance-induced mood disorder; I10 Essential (primary) hypertension; B18.2 Chronic viral hepatitis C; Z86.19 Personal history of other infectious and parasitic diseases
CPT/HCPCS: 36415; 80053; 84520; 85027; 86593; 93005; 93010; J0735; Q0162

== ENCOUNTER 2020-11-20 09:53 | Inpatient (IN) | payer OTHER ==
[2020-11-20] MEDS ORDERED: SODIUM CHLORIDE 1,000 ML IV STA (11:00)
[2020-11-20] MEDS ORDERED: CLINDAMYCIN 600MG PREMIX IVPB 600 MG/50 ML BAG IVPB ONE ×2 (11:00→12:13)
[2020-11-20 12:24] LABS: PH,URINE 5.5 (5.0-8.0); URINE APPEARANCE CLEAR; URINE BILIRUBIN NEGATIVE (NEGATIVE); URINE COLOR YELLOW; URINE GLUCOSE (UA) NEGATIVE (NEGATIVE); URINE KETONE NEGATIVE (NEGATIVE); URINE LEUK ESTERASE NEGATIVE (NEGATIVE); URINE NITRITE NEGATIVE (NEGATIVE); URINE PROTEIN NEGATIVE (NEGATIVE); URINE UROBILINOGEN 0.2 mg/dL (0.2-1.0)
[2020-11-20 12:27] LABS: BASO % 0.6 % (0-2.0); EOS % 1.6 % (0-4.5); HEMATOCRIT 40.2 % (35.4-49); HEMOGLOBIN 13.8 GM/dL (11.7-16.9); LYMPH % 17.5 % (8-40); MCH 29.1 pg (25.7-33.7); MCHC 34.3 g/dl (32.0-35.9); MEAN CELL VOLUME 85.1 fl (80-96); MEAN PLT VOLUME 7.1 fl (7.5-11.1); MONO % 3.7 % (3.8-10.2); NEUT % 76.6 % (42.8-82.8); PLATELET COUNT 329 K/MM3 (134-434); RBC 4.72 M/mm3 (4.00-5.60); WHITE BLOOD COUNT 10.4 K/mm3 (4.0-10.0)
[2020-11-20 12:46] LABS: CALCIUM 9.3 mg/dL (8.5-10.1)
[2020-11-20 12:47] LABS: ALBUMIN 4.1 g/dl (3.4-5.0); BLOOD UREA NITROGEN 28.9 mg/dL (7-18)
[2020-11-20 12:50] LABS: CREATININE 0.7 mg/dL (0.55-1.3)
[2020-11-20 12:53] LABS: BILIRUBIN,TOTAL 0.2 mg/dL (0.2-1); TOT PROT 8.1 g/dl (6.4-8.2)
[2020-11-20 13:08] LABS: URINE AMPHETAMINES NEGATIVE ng/ml (CUTOFF=500); URINE BARBITURATES NEGATIVE ng/ml (CUTOFF=200)
[2020-11-20 13:09] LABS: METHADONE, UR NEGATIVE ng/ml (CUTOFF=300); PHENCYCLIDINE,URINE NEGATIVE ng/ml (CUTOFF=25); URINE BENZODIAZEPINES NEGATIVE ng/ml (CUTOFF=200)
[2020-11-20 13:14] LABS: COCAINE, UR POSITIVE ng/ml (CUTOFF=300); OPIATES, URI POSITIVE ng/ml (CUTOFF=300)
[2020-11-20 17:54] VITALS: BMI 28.4
[2020-11-20] MEDS ORDERED: DEXTROSE 5%-WATER - 50 ML IVPB ONE (19:12)
[2020-11-20] MEDS ORDERED: PIPERACILLIN/TAZOBACTAM 3.375 GM VIAL IVPB ONE (19:12)
[2020-11-20] MEDS: NICOTINE 21 MG/24 HOURS TOPICAL PATCH TD SCH (19:53)
[2020-11-20] MEDS: PIPERACILLIN/TAZOB 3.375 GM 3.375 GM in DEXTROSE 5%-WATER - 50 ML IVPB SCH (20:00)
[2020-11-20] MEDS: VANCOMYCIN 1 GM in D5W (PRE-DOCKED) 1,000 MG/250 ML IVPB SCH (20:45)
[2020-11-20] MEDS ORDERED: METHADONE HCL 10 MG/1 ML (20ML VIAL) IM ONE (22:00)
[2020-11-21] MEDS ORDERED: PIPERACILLIN/TAZOBACTAM 3.375 GM VIAL IVPB ONE ×3 (00:51→17:14)
[2020-11-21] MEDS ORDERED: DEXTROSE 5%-WATER - 50 ML IVPB ONE ×3 (00:52→17:14)
[2020-11-21] MEDS: PIPERACILLIN/TAZOB 3.375 GM 3.375 GM in DEXTROSE 5%-WATER - 50 ML IVPB SCH ×4 (01:01→17:23)
[2020-11-21] MEDS ORDERED: METHADONE HCL 10 MG/1 ML (20ML VIAL) IM ONE (05:00)
[2020-11-21] MEDS: VANCOMYCIN 1 GM in D5W (PRE-DOCKED) 1,000 MG/250 ML IVPB SCH ×2 (06:35→13:14)
[2020-11-21 08:39] LABS: HEMATOCRIT 38.6 % (35.4-49); HEMOGLOBIN 13.4 GM/dL (11.7-16.9); MCH 29.2 pg (25.7-33.7); MCHC 34.6 g/dl (32.0-35.9); MEAN CELL VOLUME 84.5 fl (80-96); MEAN PLT VOLUME 7.2 fl (7.5-11.1); PLATELET COUNT 310 K/MM3 (134-434); RBC 4.57 M/mm3 (4.00-5.60); RDW 13.1 % (11.9-15.9); WHITE BLOOD COUNT 7.6 K/mm3 (4.0-10.0)
[2020-11-21 09:10] LABS: CALCIUM 8.8 mg/dL (8.5-10.1)
[2020-11-21 09:11] LABS: ALBUMIN 3.5 g/dl (3.4-5.0); BLOOD UREA NITROGEN 24.1 mg/dL (7-18); MAGNESIUM 2.2 mg/dL (1.8-2.4)
[2020-11-21 09:14] LABS: CREATININE 0.8 mg/dL (0.55-1.3); PHOSPHOROUS 3.9 mg/dL (2.5-4.9)
[2020-11-21 09:16] LABS: BILIRUBIN,TOTAL 0.3 mg/dL (0.2-1); TOT PROT 7.4 g/dl (6.4-8.2)
[2020-11-21] MEDS: NICOTINE 21 MG/24 HOURS TOPICAL PATCH TD SCH (09:41)
[2020-11-21] MEDS: ENOXAPARIN NA (PORCINE) 40 MG/0.4 ML DISP.SYRIN SQ SCH (09:41)
[2020-11-21] MEDS: amLODIPine BESYLATE 5 MG TABLET (FP) PO SCH (09:41)
[2020-11-21] MEDS ORDERED: cloNIDine HCL 0.1 MG TABLET PO PRN (20:58)
[2020-11-21] MEDS ORDERED: METHADONE HCL 10 MG TABLET PO ONE (20:58)
[2020-11-21] MEDS ORDERED: MELATONIN 5 MG TABLETS PO ONE (21:00)
[2020-11-22] MEDS ORDERED: DEXTROSE 5%-WATER - 50 ML IVPB ONE ×2 (00:59→11:30)
[2020-11-22] MEDS ORDERED: PIPERACILLIN/TAZOBACTAM 3.375 GM VIAL IVPB ONE ×2 (00:59→11:30)
[2020-11-22] MEDS: PIPERACILLIN/TAZOB 3.375 GM 3.375 GM in DEXTROSE 5%-WATER - 50 ML IVPB SCH ×2 (01:29→11:37)
[2020-11-22] MEDS: VANCOMYCIN 1 GM in D5W (PRE-DOCKED) 1,000 MG/250 ML IVPB SCH ×2 (06:14→11:38)
[2020-11-22 08:23] LABS: HEMATOCRIT 34.9 % (35.4-49); HEMOGLOBIN 12.3 GM/dL (11.7-16.9); MCHC 35.1 g/dl (32.0-35.9); MEAN CELL VOLUME 82.8 fl (80-96); MEAN PLT VOLUME 6.8 fl (7.5-11.1); PLATELET COUNT 276 K/MM3 (134-434); RBC 4.22 M/mm3 (4.00-5.60); WHITE BLOOD COUNT 7.5 K/mm3 (4.0-10.0)
[2020-11-22 09:19] LABS: CALCIUM 8.8 mg/dL (8.5-10.1)
[2020-11-22 09:20] LABS: ALBUMIN 3.4 g/dl (3.4-5.0); BLOOD UREA NITROGEN 21.7 mg/dL (7-18); MAGNESIUM 2.1 mg/dL (1.8-2.4)
[2020-11-22 09:23] LABS: CREATININE 0.8 mg/dL (0.55-1.3); PHOSPHOROUS 4.1 mg/dL (2.5-4.9)
[2020-11-22 09:25] LABS: BILIRUBIN,TOTAL 0.4 mg/dL (0.2-1); TOT PROT 7.1 g/dl (6.4-8.2)
[2020-11-22] MEDS ORDERED: METHADONE 20 MG, METHADONE 5 MG PO ONE (10:00)
[2020-11-22] MEDS ORDERED: METHADONE HCL 5 MG TABLET ONE (11:32)
[2020-11-22] MEDS ORDERED: METHADONE HCL 10 MG TABLET ONE (11:33)
[2020-11-22] MEDS: NICOTINE 21 MG/24 HOURS TOPICAL PATCH TD SCH (11:35)
[2020-11-22] MEDS: amLODIPine BESYLATE 5 MG TABLET (FP) PO SCH (11:35)
[2020-11-22] MEDS: ENOXAPARIN NA (PORCINE) 40 MG/0.4 ML DISP.SYRIN SQ SCH (11:36)
[2020-11-22] MEDS ORDERED: ACETAMINOPHEN 1000 MG/100 ML VIAL (NON FORMULARY) IVPB ONE (12:06)
[2020-11-22] MEDS ORDERED: IBUPROFEN 600 MG TABLET (FP) PO ONE (13:04)
[2020-11-22 18:03] VITALS: BP 139/88; PULSE 94; TEMP 97.6
[2020-11-23] MEDS ORDERED: METHADONE HCL 10 MG TABLET PO ONE (10:00)
[2020-11-24] MEDS ORDERED: METHADONE 10 MG, METHADONE 5 MG PO ONE (10:00)
[2020-11-25] MEDS ORDERED: METHADONE HCL 10 MG TABLET PO ONE (10:00)
[2020-11-26] MEDS ORDERED: METHADONE HCL 5 MG TABLET PO ONE (06:00)
== END 2020-11-22 14:22 | disposition left against medical advice (07) | DRG 383 ==
LOC: JER 09:53 → JERBED 13:48 → J5S 17:34
PROVIDERS: ATTEND Internal Medicine
PROC: HZ91ZZZ Pharmacotherapy for Substance Abuse Treatment, Methadone Maintenance (ICD-10-PCS; principal; 2020-11-20)
DX: L03.114 Cellulitis of left upper limb (principal); L03.113 Cellulitis of right upper limb; F14.20 Cocaine dependence, uncomplicated; F11.20 Opioid dependence, uncomplicated; I10 Essential (primary) hypertension; F17.210 Nicotine dependence, cigarettes, uncomplicated; B19.20 Unspecified viral hepatitis C without hepatic coma; Z91.14 Patient's other noncompliance with medication regimen
CPT/HCPCS: 36415; 71045-TC-FY; 71046-TC-FY; 73070-TC-LT-FY; 73070-TC-RT-FY; 80053; 80307; 81003; 83735; 84100; 85025; 85027; 87040; 93005; 93010; 99285-25; C9803; U0003; U0005

== ENCOUNTER 2020-11-22 14:51 | Emergency (ER) | payer OTHER ==
[2020-11-22 15:05] VITALS: BP 145/86; PULSE 77; TEMP 98.4; BMI 27.6
== END 2020-11-22 18:37 | disposition left against medical advice (07) ==
LOC: JER 14:51
DX: F11.10 Opioid abuse, uncomplicated (principal); L03.113 Cellulitis of right upper limb
CPT/HCPCS: 99281-25

== ENCOUNTER 2021-01-24 15:43 | Emergency (ER) | payer OTHER ==
[2021-01-24 15:48] VITALS: TEMP 98; BMI 27.2
[2021-01-24] MEDS ORDERED: DALBAVANCIN HCL 1,500 MG in DEXTROSE 5%-WATER - 500 ML IVPB ONE (16:34)
[2021-01-24 18:12] LABS: BASO % 1.4 % (0-2.0); EOS % 0.9 % (0-4.5); HEMATOCRIT 36.8 % (35.4-49); HEMOGLOBIN 12.3 GM/dL (11.7-16.9); LYMPH % 24.6 % (8-40); MCH 27.4 pg (25.7-33.7); MCHC 33.6 g/dl (32.0-35.9); MEAN CELL VOLUME 81.8 fl (80-96); MEAN PLT VOLUME 6.5 fl (7.5-11.1); NEUT % 68.1 % (42.8-82.8); PLATELET COUNT 364 10^3/uL (134-434); RDW 13.3 % (11.9-15.9)
[2021-01-24 18:32] LABS: CALCIUM 8.9 mg/dL (8.5-10.1)
[2021-01-24 18:33] LABS: ALBUMIN 3.9 g/dl (3.4-5.0); BLOOD UREA NITROGEN 19.1 mg/dL (7-18)
[2021-01-24 18:36] LABS: CREATININE 0.9 mg/dL (0.55-1.3)
[2021-01-24 18:38] LABS: BILIRUBIN,TOTAL 0.2 mg/dL (0.2-1); TOT PROT 8.1 g/dl (6.4-8.2)
[2021-01-24 22:34] VITALS: BP 142/84; PULSE 91
== END 2021-01-24 22:35 | disposition home or self-care (01) ==
LOC: JER 15:43
DX: L03.113 Cellulitis of right upper limb (principal); F11.20 Opioid dependence, uncomplicated
CPT/HCPCS: 36415; 80053; 85025; 87040; 99284-25; J0875

== ENCOUNTER 2021-01-26 11:25 | Emergency (ER) | payer OTHER ==
[2021-01-26 11:37] VITALS: BP 146/89; PULSE 99; BMI 27.1
== END 2021-01-26 11:46 | disposition home or self-care (01) ==
LOC: JERFT 11:25
DX: Z48.00 Encounter for change or removal of nonsurgical wound dressing (principal)
CPT/HCPCS: 99281-25

== ENCOUNTER 2021-03-12 15:45 | Emergency (ER) | payer OTHER ==
[2021-03-12 16:08] VITALS: BP 163/102; PULSE 76; TEMP 98.4; BMI 26.0
== END 2021-03-12 19:57 | disposition left against medical advice (07) ==
LOC: JER 15:45
DX: L03.113 Cellulitis of right upper limb (principal)
CPT/HCPCS: 99283-25

== ENCOUNTER 2021-03-15 18:17 | Inpatient (IN) | payer OTHER ==
[2021-03-15 18:34] VITALS: BMI 25.7
[2021-03-15] MEDS ORDERED: VANCOMYCIN 1 GM in D5W (PRE-DOCKED) 1,000 MG/250 ML IVPB ONE (19:19)
[2021-03-15] MEDS ORDERED: PIPERACILLIN/TAZOB 4.5 GM 4.5 GM in DEXTROSE 5%-WATER 100 ML IVPB ONE (19:19)
[2021-03-15] MEDS ORDERED: cloNIDine HCL 0.1 MG TABLET PO ONE (19:19)
[2021-03-15] MEDS ORDERED: cloNIDine HCL 0.1 MG TABLET ONE (20:28)
[2021-03-15 20:35] LABS: EPI CELLS 5 /uL (0-25.1); HYALINE CASTS 1 /uL (0-3.1); URINE APPEARANCE CLEAR; URINE BACTERIA 130 /uL (0-1359); URINE BILIRUBIN NEGATIVE (NEGATIVE); URINE COLOR YELLOW; URINE GLUCOSE (UA) NEGATIVE (NEGATIVE); URINE KETONE TRACE (NEGATIVE); URINE LEUK ESTERASE NEGATIVE (NEGATIVE); URINE NITRITE NEGATIVE (NEGATIVE); URINE PROTEIN 1+ (NEGATIVE); URINE RBC 8 /uL (0-23.9); URINE WBC 11 /uL (0-25.8)
[2021-03-15] MEDS ORDERED: VANCOMYCIN 1 GRAM (PRE-DOCKED) 1,000 MG/250 ML BAG IVPB ONE (21:07)
[2021-03-15 21:17] LABS: BASO % 0.9 % (0-2.0); EOS % 2.2 % (0-4.5); HEMATOCRIT 35.7 % (35.4-49); HEMOGLOBIN 12.3 GM/dL (11.7-16.9); LYMPH % 30.4 % (8-40); MCH 27.6 pg (25.7-33.7); MCHC 34.3 g/dl (32.0-35.9); MEAN CELL VOLUME 80.5 fl (80-96); MEAN PLT VOLUME 6.6 fl (7.5-11.1); MONO % 5.5 % (3.8-10.2); PLATELET COUNT 365 10^3/uL (134-434); RBC 4.44 M/mm3 (4.00-5.60); WHITE BLOOD COUNT 7.2 K/mm3 (4.0-10.0)
[2021-03-15 21:34] LABS: ALBUMIN 3.9 g/dl (3.4-5.0); BLOOD UREA NITROGEN 25.4 mg/dL (7-18)
[2021-03-15 21:37] LABS: CREATININE 0.8 mg/dL (0.55-1.3)
[2021-03-15 21:38] LABS: BILIRUBIN,TOTAL 0.1 mg/dL (0.2-1)
[2021-03-15 21:39] LABS: TOT PROT 8.2 g/dl (6.4-8.2)
[2021-03-15] MEDS ORDERED: PIPERACILLIN/TAZOB 4.5 GM 4.5 GM/100 ML BAG IVPB ONE (21:58)
[2021-03-16] MEDS ORDERED: POLYETHYLENE GLYCOL 3350 119 GM BTL PO ONE (00:29)
[2021-03-16] MEDS ORDERED: ACETAMINOPHEN 325 MG TABLET (FP) PO PRN (00:35)
[2021-03-16] MEDS ORDERED: LORazepam 1 MG TABLET PO PRN ×2 (00:36→10:44)
[2021-03-16] MEDS ORDERED: MULTIVITAMINS (DAILY MVI) TABLET (FP) PO ONE (00:39)
[2021-03-16] MEDS ORDERED: FOLIC ACID 1 MG TABLET (FP) PO ONE (00:39)
[2021-03-16] MEDS ORDERED: THIAMINE HCL 100 MG TABLET (FP) PO ONE (00:39)
[2021-03-16] MEDS ORDERED: LISINOPRIL 10 MG TABLET PO SCH (00:40)
[2021-03-16] MEDS ORDERED: MULTIVITAMINS (DAILY MVI) TABLET (FP) ONE (01:20)
[2021-03-16] MEDS ORDERED: cloNIDine HCL 0.1 MG TABLET ONE ×2 (01:20→06:07)
[2021-03-16] MEDS ORDERED: THIAMINE HCL 100 MG TABLET (FP) ONE (01:21)
[2021-03-16] MEDS ORDERED: LISINOPRIL 5 MG TABLET ONE (01:21)
[2021-03-16] MEDS ORDERED: FOLIC ACID 1 MG TABLET (FP) ONE (01:21)
[2021-03-16] MEDS: cloNIDine HCL 0.1 MG TABLET PO SCH ×3 (01:25→15:02)
[2021-03-16] MEDS ORDERED: VANCOMYCIN PREMIX 1.5 GM 1,500 MG/300 ML BAG IVPB SCH (07:00)
[2021-03-16 08:05] LABS: CALCIUM 8.7 mg/dL (8.5-10.1); HEMATOCRIT 35.7 % (35.4-49); HEMOGLOBIN 12.2 GM/dL (11.7-16.9); MCH 27.7 pg (25.7-33.7); MCHC 34.2 g/dl (32.0-35.9); MEAN PLT VOLUME 6.8 fl (7.5-11.1); PLATELET COUNT 308 10^3/uL (134-434); RBC 4.41 M/mm3 (4.00-5.60); RDW 14.1 % (11.9-15.9); WHITE BLOOD COUNT 6.9 K/mm3 (4.0-10.0)
[2021-03-16 08:06] LABS: BLOOD UREA NITROGEN 22.2 mg/dL (7-18); MAGNESIUM 2.1 mg/dL (1.8-2.4)
[2021-03-16 08:09] LABS: CREATININE 0.7 mg/dL (0.55-1.3); PHOSPHOROUS 4.5 mg/dL (2.5-4.9)
[2021-03-16] MEDS: ENOXAPARIN NA (PORCINE) 40 MG/0.4 ML DISP.SYRIN SQ SCH (10:50)
[2021-03-16] MEDS ORDERED: PIPERACILLIN/TAZOBACTAM 4.5 GM VIAL IVPB ONE ×2 (10:56→17:34)
[2021-03-16] MEDS ORDERED: DEXTROSE 5%-WATER 100 ML IVPB ONE ×2 (10:56→17:35)
[2021-03-16] MEDS: FOLIC ACID 1 MG TABLET (FP) PO SCH (11:16)
[2021-03-16] MEDS: LACTOBACILLUS ACIDOPHILUS 1 TABLET PO SCH (11:16)
[2021-03-16] MEDS: MULTIVITAMINS (DAILY MVI) TABLET (FP) PO SCH (11:16)
[2021-03-16] MEDS: NICOTINE 21 MG/24 HOURS TOPICAL PATCH TD SCH (11:16)
[2021-03-16] MEDS: LORazepam 1 MG TABLET PO SCH ×3 (11:16→22:10)
[2021-03-16] MEDS: PIPERACILLIN/TAZOB 4.5 GM 4.5 GM in DEXTROSE 5%-WATER 100 ML IVPB SCH ×2 (11:20→17:42)
[2021-03-16] MEDS: VANCOMYCIN 1 GRAM (PRE-DOCKED) 1,000 MG/250 ML BAG IVPB SCH ×2 (12:10→21:43)
[2021-03-16] MEDS ORDERED: cloNIDine HCL 0.1 MG TABLET PO PRN (14:06)
[2021-03-16] MEDS ORDERED: clonazePAM 0.5 MG ODT TABLETS SL PRN (14:06)
[2021-03-16] MEDS ORDERED: clonazePAM 0.5 MG TABLET PO PRN (14:11)
[2021-03-16] MEDS: methaDONE HCL 10 MG TABLET PO ONE (14:59)
[2021-03-16] MEDS: THIAMINE HCL 100 MG TABLET (FP) PO SCH (21:43)
[2021-03-16] MEDS: LISINOPRIL 10 MG TABLET PO SCH (21:43)
[2021-03-17] MEDS ORDERED: PIPERACILLIN/TAZOBACTAM 4.5 GM VIAL IVPB ONE ×3 (00:54→17:10)
[2021-03-17] MEDS ORDERED: DEXTROSE 5%-WATER 100 ML IVPB ONE ×3 (00:54→17:10)
[2021-03-17] MEDS: PIPERACILLIN/TAZOB 4.5 GM 4.5 GM in DEXTROSE 5%-WATER 100 ML IVPB SCH ×3 (01:00→17:14)
[2021-03-17] MEDS ORDERED: LORazepam 0.5 MG TABLET ONE (04:00)
[2021-03-17] MEDS: LORazepam 1 MG TABLET PO SCH ×4 (04:05→22:47)
[2021-03-17] MEDS ORDERED: VANCOMYCIN PREMIX 1.5 GM 1,500 MG/300 ML BAG IVPB SCH (07:00)
[2021-03-17] MEDS ORDERED: methaDONE HCL 10 MG TABLET ONE (09:56)
[2021-03-17] MEDS: FOLIC ACID 1 MG TABLET (FP) PO SCH (10:00)
[2021-03-17] MEDS: MULTIVITAMINS (DAILY MVI) TABLET (FP) PO SCH (10:00)
[2021-03-17] MEDS: methaDONE HCL 10 MG TABLET PO ONE (10:01)
[2021-03-17] MEDS: LACTOBACILLUS ACIDOPHILUS 1 TABLET PO SCH (10:02)
[2021-03-17] MEDS: NICOTINE 21 MG/24 HOURS TOPICAL PATCH TD SCH (10:02)
[2021-03-17] MEDS: ENOXAPARIN NA (PORCINE) 40 MG/0.4 ML DISP.SYRIN SQ SCH (10:02)
[2021-03-17] MEDS: VANCOMYCIN 1 GRAM (PRE-DOCKED) 1,000 MG/250 ML BAG IVPB SCH ×2 (11:22→22:47)
[2021-03-17 12:13] LABS: HEMATOCRIT 35.1 % (35.4-49); HEMOGLOBIN 11.9 GM/dL (11.7-16.9); LYMPH % 22.5 % (8-40); MCH 27.5 pg (25.7-33.7); MCHC 33.9 g/dl (32.0-35.9); MEAN CELL VOLUME 81.1 fl (80-96); MEAN PLT VOLUME 6.9 fl (7.5-11.1); MONO % 4.2 % (3.8-10.2); NEUT % 68.3 % (42.8-82.8); PLATELET COUNT 293 10^3/uL (134-434); RBC 4.33 M/mm3 (4.00-5.60); RDW 14.2 % (11.9-15.9); WHITE BLOOD COUNT 5.7 K/mm3 (4.0-10.0)
[2021-03-17 13:31] LABS: HIV INTERPRETATION NEGATIVE (NEGATIVE)
[2021-03-17 19:09] LABS: CALCIUM 8.5 mg/dL (8.5-10.1)
[2021-03-17 19:10] LABS: BLOOD UREA NITROGEN 17.2 mg/dL (7-18); MAGNESIUM 1.9 mg/dL (1.8-2.4)
[2021-03-17 19:13] LABS: CREATININE 0.8 mg/dL (0.55-1.3)
[2021-03-17 19:15] LABS: BILIRUBIN,TOTAL 0.3 mg/dL (0.2-1); TOT PROT 6.7 g/dl (6.4-8.2)
[2021-03-17] MEDS: DOCUSATE SODIUM 100 MG CAPSULE (FP) PO SCH (22:46)
[2021-03-17] MEDS: LISINOPRIL 10 MG TABLET PO SCH (22:46)
[2021-03-17] MEDS: THIAMINE HCL 100 MG TABLET (FP) PO SCH (22:46)
[2021-03-18] MEDS ORDERED: DEXTROSE 5%-WATER 100 ML IVPB ONE ×3 (02:43→17:07)
[2021-03-18] MEDS ORDERED: PIPERACILLIN/TAZOBACTAM 4.5 GM VIAL IVPB ONE ×3 (02:43→17:07)
[2021-03-18] MEDS: PIPERACILLIN/TAZOB 4.5 GM 4.5 GM in DEXTROSE 5%-WATER 100 ML IVPB SCH ×3 (02:47→17:20)
[2021-03-18] MEDS: LORazepam 1 MG TABLET PO SCH ×4 (05:53→22:21)
[2021-03-18] MEDS: LACTOBACILLUS ACIDOPHILUS 1 TABLET PO SCH (09:25)
[2021-03-18] MEDS: ENOXAPARIN NA (PORCINE) 40 MG/0.4 ML DISP.SYRIN SQ SCH (09:25)
[2021-03-18] MEDS: FOLIC ACID 1 MG TABLET (FP) PO SCH (09:26)
[2021-03-18] MEDS: VANCOMYCIN 1 GRAM (PRE-DOCKED) 1,000 MG/250 ML BAG IVPB SCH ×2 (09:27→22:22)
[2021-03-18] MEDS: NICOTINE 21 MG/24 HOURS TOPICAL PATCH TD SCH (09:27)
[2021-03-18] MEDS: MULTIVITAMINS (DAILY MVI) TABLET (FP) PO SCH (09:27)
[2021-03-18] MEDS: DOCUSATE SODIUM 100 MG CAPSULE (FP) PO SCH ×2 (09:28→22:21)
[2021-03-18] MEDS ORDERED: methaDONE HCL 10 MG TABLET PO ONE (10:00)
[2021-03-18 15:42] LABS: BASO % 1.1 % (0-2.0); HEMATOCRIT 36.8 % (35.4-49); HEMOGLOBIN 12.5 GM/dL (11.7-16.9); LYMPH % 22.1 % (8-40); MCH 27.1 pg (25.7-33.7); MCHC 33.9 g/dl (32.0-35.9); MEAN PLT VOLUME 6.9 fl (7.5-11.1); MONO % 4.8 % (3.8-10.2); PLATELET COUNT 318 10^3/uL (134-434); RDW 14.1 % (11.9-15.9); WHITE BLOOD COUNT 6.9 K/mm3 (4.0-10.0)
[2021-03-18 15:59] LABS: CALCIUM 9.2 mg/dL (8.5-10.1)
[2021-03-18 15:59] LABS: ALBUMIN 3.5 g/dl (3.4-5.0)
[2021-03-18 16:00] LABS: ALBUMIN 3.6 g/dl (3.4-5.0); BLOOD UREA NITROGEN 15.4 mg/dL (7-18)
[2021-03-18 16:03] LABS: CREATININE 0.8 mg/dL (0.55-1.3)
[2021-03-18 16:03] LABS: BILIRUBIN,TOTAL 0.2 mg/dL (0.2-1); TOT PROT 7.3 g/dl (6.4-8.2)
[2021-03-18 16:04] LABS: BILIRUBIN,TOTAL 0.2 mg/dL (0.2-1); TOT PROT 7.7 g/dl (6.4-8.2)
[2021-03-18] MEDS: THIAMINE HCL 100 MG TABLET (FP) PO SCH (22:21)
[2021-03-18] MEDS: LISINOPRIL 10 MG TABLET PO SCH (22:21)
[2021-03-19] MEDS ORDERED: LORazepam 0.5 MG TABLET PO PRN
[2021-03-19] MEDS ORDERED: PIPERACILLIN/TAZOBACTAM 4.5 GM VIAL IVPB ONE ×2 (02:28→02:32)
[2021-03-19] MEDS ORDERED: DEXTROSE 5%-WATER 100 ML IVPB ONE ×2 (02:29→02:32)
[2021-03-19] MEDS: PIPERACILLIN/TAZOB 4.5 GM 4.5 GM in DEXTROSE 5%-WATER 100 ML IVPB SCH (02:44)
[2021-03-19] MEDS ORDERED: LORazepam 0.5 MG TABLET PO SCH (05:00)
[2021-03-19 05:57] VITALS: BP 135/74; PULSE 71; TEMP 98
[2021-03-19 09:02] LABS: BASO % 1.1 % (0-2.0); EOS % 2.9 % (0-4.5); HEMATOCRIT 38.9 % (35.4-49); HEMOGLOBIN 13.4 GM/dL (11.7-16.9); LYMPH % 24.9 % (8-40); MCH 27.5 pg (25.7-33.7); MCHC 34.3 g/dl (32.0-35.9); MEAN CELL VOLUME 80.3 fl (80-96); MEAN PLT VOLUME 6.9 fl (7.5-11.1); MONO % 6.6 % (3.8-10.2); NEUT % 64.5 % (42.8-82.8); PLATELET COUNT 311 10^3/uL (134-434); RBC 4.85 M/mm3 (4.00-5.60); RDW 14.5 % (11.9-15.9); WHITE BLOOD COUNT 6.3 K/mm3 (4.0-10.0)
[2021-03-19 09:37] LABS: ALBUMIN 3.5 g/dl (3.4-5.0); BLOOD UREA NITROGEN 14.3 mg/dL (7-18); CALCIUM 9.2 mg/dL (8.5-10.1)
[2021-03-19 09:38] LABS: MAGNESIUM 2.1 mg/dL (1.8-2.4)
[2021-03-19 09:41] LABS: CREATININE 0.8 mg/dL (0.55-1.3)
[2021-03-19 09:42] LABS: BILIRUBIN,TOTAL 0.2 mg/dL (0.2-1); TOT PROT 7.7 g/dl (6.4-8.2)
[2021-03-20] MEDS ORDERED: LORazepam 0.5 MG TABLET PO ONE (05:00)
[2021-03-20] MEDS ORDERED: methaDONE HCL 10 MG TABLET PO ONE (10:00)
== END 2021-03-19 08:45 | disposition left against medical advice (07) | DRG 383 ==
LOC: JER 18:17 → JERBED 22:31 → J8W 03-16 09:28
PROVIDERS: ADMIT Internal Medicine; ATTEND Nurse Practitioner Family
PROC: HZ81ZZZ Medication Management for Substance Abuse Treatment, Methadone Maintenance (ICD-10-PCS; principal; 2021-03-15)
DX: L03.114 Cellulitis of left upper limb (principal); L03.113 Cellulitis of right upper limb; I10 Essential (primary) hypertension; B18.2 Chronic viral hepatitis C; F11.20 Opioid dependence, uncomplicated; F17.210 Nicotine dependence, cigarettes, uncomplicated; F19.20 Other psychoactive substance dependence, uncomplicated; M84.48XD Pathological fracture, other site, subsequent encounter for fracture with routine healing; Z21 Asymptomatic human immunodeficiency virus [HIV] infection status
CPT/HCPCS: 36415; 71046-TC-FY; 73200-TC-RT; 80048; 80053; 81003; 83036; 83605; 83735; 84100; 85025; 85027; 87040; 87086; 87389; 93005; 93010; 99285-25; C9803; J0735; U0003; U0005

== ENCOUNTER 2021-05-11 17:35 | Inpatient (IN) | payer OTHER ==
[2021-05-11] MEDS ORDERED: PIPERACILLIN/TAZOB 4.5 GM 4.5 GM in DEXTROSE 5%-WATER 100 ML IVPB ONE (18:27)
[2021-05-11] MEDS ORDERED: VANCOMYCIN 1 GM in D5W (PRE-DOCKED) 1,000 MG/250 ML IVPB ONE (18:28)
[2021-05-11] MEDS ORDERED: VANCOMYCIN 1 GRAM (PRE-DOCKED) 1,000 MG/250 ML BAG IVPB ONE (21:10)
[2021-05-11] MEDS ORDERED: PIPERACILLIN/TAZOB 4.5 GM 4.5 GM/100 ML BAG IVPB ONE (21:10)
[2021-05-11 21:14] LABS: EOS % 1.7 % (0-4.5); HEMATOCRIT 35.9 % (35.4-49); HEMOGLOBIN 12.3 GM/dL (11.7-16.9); LYMPH % 29.1 % (8-40); MCH 27.7 pg (25.7-33.7); MCHC 34.2 g/dl (32.0-35.9); MEAN PLT VOLUME 6.4 fl (7.5-11.1); NEUT % 63.2 % (42.8-82.8); PLATELET COUNT 329 10^3/uL (134-434); RBC 4.43 M/mm3 (4.00-5.60); RDW 14.9 % (11.9-15.9); WHITE BLOOD COUNT 6.7 K/mm3 (4.0-10.0)
[2021-05-11 21:45] LABS: BLOOD UREA NITROGEN 21.8 mg/dL (7-18); CALCIUM 9.1 mg/dL (8.5-10.1)
[2021-05-11 21:46] LABS: ALBUMIN 4.1 g/dl (3.4-5.0)
[2021-05-11 21:50] LABS: TOT PROT 8.1 g/dl (6.4-8.2)
[2021-05-11 22:16] LABS: BILIRUBIN,TOTAL 0.2 mg/dL (0.2-1)
[2021-05-12] MEDS ORDERED: ACETAMINOPHEN 325 MG TABLET (FP) PO PRN (00:07)
[2021-05-12] MEDS ORDERED: cloNIDine HCL 0.1 MG TABLET PO PRN (00:13)
[2021-05-12] MEDS ORDERED: methaDONE HCL 10 MG TABLET PO ONE (00:13)
[2021-05-12] MEDS ORDERED: LORazepam 2 MG TABLET PO PRN (00:16)
[2021-05-12] MEDS ORDERED: methaDONE HCL 10 MG TABLET ONE (00:20)
[2021-05-12] MEDS ORDERED: SENNOSIDES 8.6MG TABLET (FP) PO PRN (02:30)
[2021-05-12 03:20] VITALS: BMI 26.4
[2021-05-12] MEDS ORDERED: PIPERACILLIN/TAZOBACTAM 3.375 GM VIAL IVPB ONE ×3 (03:38→17:07)
[2021-05-12] MEDS ORDERED: DEXTROSE 5%-WATER - 50 ML IVPB ONE ×3 (03:38→17:08)
[2021-05-12] MEDS: PIPERACILLIN/TAZOB 3.375 GM 3.375 GM in DEXTROSE 5%-WATER - 50 ML IVPB SCH ×3 (03:52→17:26)
[2021-05-12] MEDS: ENOXAPARIN NA (PORCINE) 40 MG/0.4 ML DISP.SYRIN SQ SCH (09:52)
[2021-05-12] MEDS: LISINOPRIL 10 MG TABLET PO SCH (09:52)
[2021-05-12] MEDS: VANCOMYCIN 1 GRAM (PRE-DOCKED) 1,000 MG/250 ML BAG IVPB SCH (15:04)
[2021-05-12 17:03] LABS: HEMATOCRIT 34.8 % (35.4-49); HEMOGLOBIN 11.9 GM/dL (11.7-16.9); MCH 27.7 pg (25.7-33.7); MCHC 34.1 g/dl (32.0-35.9); MEAN CELL VOLUME 81.1 fl (80-96); MEAN PLT VOLUME 6.8 fl (7.5-11.1); PLATELET COUNT 292 10^3/uL (134-434); RDW 14.9 % (11.9-15.9); WHITE BLOOD COUNT 5.8 K/mm3 (4.0-10.0)
[2021-05-12 17:16] LABS: CALCIUM 8.6 mg/dL (8.5-10.1)
[2021-05-12 17:17] LABS: BLOOD UREA NITROGEN 17.4 mg/dL (7-18); MAGNESIUM 2.3 mg/dL (1.8-2.4)
[2021-05-12 17:19] LABS: PHOSPHOROUS 3.4 mg/dL (2.5-4.9)
[2021-05-12 17:21] LABS: BILIRUBIN,TOTAL 0.3 mg/dL (0.2-1); TOT PROT 6.8 g/dl (6.4-8.2)
[2021-05-12 17:26] LABS: ALBUMIN 3.1 g/dl (3.4-5.0)
[2021-05-12] MEDS: NICOTINE 21 MG/24 HOURS TOPICAL PATCH TD SCH (18:14)
[2021-05-12] MEDS ORDERED: VANCOMYCIN 1 GM in D5W (PRE-DOCKED) 1,000 MG/250 ML IVPB SCH (22:00)
[2021-05-13] MEDS ORDERED: DEXTROSE 5%-WATER - 50 ML IVPB ONE ×2 (01:13→09:18)
[2021-05-13] MEDS ORDERED: PIPERACILLIN/TAZOBACTAM 3.375 GM VIAL IVPB ONE ×2 (01:13→09:17)
[2021-05-13] MEDS: PIPERACILLIN/TAZOB 3.375 GM 3.375 GM in DEXTROSE 5%-WATER - 50 ML IVPB SCH ×2 (01:18→09:27)
[2021-05-13] MEDS: VANCOMYCIN 1 GRAM (PRE-DOCKED) 1,000 MG/250 ML BAG IVPB SCH ×2 (02:14→14:17)
[2021-05-13] MEDS ORDERED: PIPERACILLIN/TAZOB 3.375 GM 3.375 GM in DEXTROSE 5%-WATER - 50 ML IVPB SCH (03:00)
[2021-05-13] MEDS ORDERED: methaDONE HCL 10 MG TABLET ONE (09:16)
[2021-05-13] MEDS: NICOTINE 21 MG/24 HOURS TOPICAL PATCH TD SCH (09:26)
[2021-05-13] MEDS: ENOXAPARIN NA (PORCINE) 40 MG/0.4 ML DISP.SYRIN SQ SCH (09:26)
[2021-05-13] MEDS: LISINOPRIL 10 MG TABLET PO SCH (09:26)
[2021-05-13 15:13] LABS: BASO % 1.2 % (0-2.0); EOS % 3.2 % (0-4.5); HEMATOCRIT 36.3 % (35.4-49); HEMOGLOBIN 12.1 GM/dL (11.7-16.9); LYMPH % 27.8 % (8-40); MCH 27.6 pg (25.7-33.7); MCHC 33.4 g/dl (32.0-35.9); MEAN CELL VOLUME 82.5 fl (80-96); MONO % 4.9 % (3.8-10.2); NEUT % 62.9 % (42.8-82.8); PLATELET COUNT 303 10^3/uL (134-434); RDW 14.6 % (11.9-15.9); WHITE BLOOD COUNT 4.9 K/mm3 (4.0-10.0)
[2021-05-13 15:41] LABS: ALBUMIN 3.1 g/dl (3.4-5.0); BLOOD UREA NITROGEN 18.7 mg/dL (7-18); CALCIUM 8.9 mg/dL (8.5-10.1)
[2021-05-13 15:42] LABS: MAGNESIUM 2.3 mg/dL (1.8-2.4)
[2021-05-13 15:44] LABS: CREATININE 1.1 mg/dL (0.55-1.3); PHOSPHOROUS 3.6 mg/dL (2.5-4.9)
[2021-05-13 15:45] LABS: TOT PROT 6.9 g/dl (6.4-8.2)
[2021-05-13 15:46] LABS: BILIRUBIN,TOTAL 0.2 mg/dL (0.2-1)
[2021-05-13 16:16] LABS: ERYTHROCYTE SEDIMENTATION RATE 19 mm/hr (0-10)
[2021-05-13] MEDS ORDERED: VANCOMYCIN 1 GM in D5W (PRE-DOCKED) 1,000 MG/250 ML IVPB SCH (22:00)
[2021-05-14] MEDS: VANCOMYCIN 1 GRAM (PRE-DOCKED) 1,000 MG/250 ML BAG IVPB SCH (01:55)
[2021-05-14 08:32] VITALS: BP 143/87; PULSE 72; TEMP 98.3
[2021-05-14] MEDS: ENOXAPARIN NA (PORCINE) 40 MG/0.4 ML DISP.SYRIN SQ SCH (09:19)
[2021-05-14] MEDS: NICOTINE 21 MG/24 HOURS TOPICAL PATCH TD SCH (09:20)
[2021-05-14] MEDS: LISINOPRIL 10 MG TABLET PO SCH (09:20)
[2021-05-14] MEDS ORDERED: methaDONE HCL 10 MG TABLET PO ONE (10:00)
[2021-05-16] MEDS ORDERED: methaDONE HCL 10 MG TABLET PO ONE (10:00)
== END 2021-05-14 13:15 | disposition left against medical advice (07) | DRG 383 ==
LOC: JERFT 17:35 → JER 17:35 → JERBED 22:13 → J6S 05-12 02:25
PROVIDERS: ATTEND Internal Medicine
DX: L03.114 Cellulitis of left upper limb (principal); L03.113 Cellulitis of right upper limb; F10.239 Alcohol dependence with withdrawal, unspecified; F11.10 Opioid abuse, uncomplicated; I10 Essential (primary) hypertension; B18.2 Chronic viral hepatitis C; F14.10 Cocaine abuse, uncomplicated; R74.01 Elevation of levels of liver transaminase levels; M79.89 Other specified soft tissue disorders; F17.210 Nicotine dependence, cigarettes, uncomplicated; L98.498 Non-pressure chronic ulcer of skin of other sites with other specified severity; R94.5 Abnormal results of liver function studies
CPT/HCPCS: 36415; 71046-TC-FY; 73200-TC-RT; 80053; 82550; 82553; 83605; 83735; 84100; 85025; 85027; 85651; 86140; 87040; 93005; 93010; 93970-TC; 99285-25; C9803; U0003; U0005

== ENCOUNTER 2021-10-31 01:09 | Inpatient (IN) | payer OTHER ==
[2021-10-31 01:38] VITALS: BMI 36.4
[2021-10-31] MEDS ORDERED: P-EPHED 60MG/TRIPROLIDI 2.5MG TABLET PO PRN (02:05)
[2021-10-31] MEDS ORDERED: LOPERAMIDE HCL 2 MG CAPSULE PO PRN (02:05)
[2021-10-31] MEDS ORDERED: MAGNESIUM CITRATE 300 ML BOTTLE PO PRN (02:05)
[2021-10-31] MEDS ORDERED: DICYCLOMINE HCL 10 MG CAPSULE PO PRN (02:05)
[2021-10-31] MEDS ORDERED: MAG HYDROX/AL HYDROX/SIMETH 30 ML UNIT-DOSE CUP PO PRN (02:05)
[2021-10-31] MEDS ORDERED: NALOXONE HCL 0.4 MG/ML VIAL IM PRN (02:05)
[2021-10-31] MEDS ORDERED: NICOTINE POLACRILEX 4 MG GUM BUC PRN (02:05)
[2021-10-31] MEDS ORDERED: ACETAMINOPHEN 325 MG TABLET (FP) PO PRN ×2 (02:05)
[2021-10-31] MEDS ORDERED: IBUPROFEN 400 MG TABLET (FP) PO PRN (02:05)
[2021-10-31] MEDS ORDERED: PROCHLORPERAZINE MALEATE 5 MG TABLET PO PRN (02:05)
[2021-10-31] MEDS ORDERED: BENZOCAINE/MENTHOL (CHLORASEPTIC ) LOZENGE MM PRN (02:05)
[2021-10-31] MEDS ORDERED: methaDONE HCL 10 MG TABLET (FOR DETOX USE ONLY) PO ONE ×2 (02:05→11:33)
[2021-10-31] MEDS ORDERED: MAGNESIUM HYDROX 2400MG/30ML ORAL SUSPENSION 30 ML CUP PO PRN (02:05)
[2021-10-31] MEDS ORDERED: BISMUTH SUBSALICYLATE 524 MG/30 ML PO PRN (02:05)
[2021-10-31] MEDS ORDERED: guaiFENesin 200 MG/10 ML 10 ML UNIT-DOSE CUPS PO PRN (02:05)
[2021-10-31] MEDS: diazePAM 5 MG TABLET PO PRN (03:37)
[2021-10-31] MEDS: cloNIDine HCL 0.1 MG TABLET PO PRN (03:39)
[2021-10-31] MEDS: METHOCARBAMOL 500 MG TABLET PO PRN (03:40)
[2021-10-31] MEDS ORDERED: CLINDAMYCIN HCL 150 MG CAPSULE (FP) PO SCH (06:00)
[2021-10-31] MEDS: diazePAM 5 MG TABLET PO SCH ×4 (06:01→22:19)
[2021-10-31] MEDS: CLINDAMYCIN HCL 150 MG CAPSULE (FP) PO SCH ×3 (06:58→22:19)
[2021-10-31] MEDS ORDERED: BACITRACIN 15 GM TUBE TOPICAL OINTMENT TP SCH (10:00)
[2021-10-31 10:24] LABS: HEMATOCRIT 32.1 % (35.4-49); MCH 27.8 pg (25.7-33.7); MCHC 34.2 g/dl (32.0-35.9); MEAN CELL VOLUME 81.3 fl (80-96); MEAN PLT VOLUME 7.3 fl (7.5-11.1); PLATELET COUNT 279 10^3/uL (134-434); RBC 3.95 M/mm3 (4.00-5.60); RDW 14.2 % (11.9-15.9); WHITE BLOOD COUNT 5.6 K/mm3 (4.0-10.0)
[2021-10-31] MEDS: LISINOPRIL 10 MG TABLET PO SCH (10:29)
[2021-10-31] MEDS: NICOTINE 21 MG/24 HOURS TOPICAL PATCH TD SCH (10:29)
[2021-10-31] MEDS: PRENATAL VITAMINS W/ FOLIC ACID TABLET (FP) PO SCH (10:29)
[2021-10-31 10:31] LABS: ALBUMIN 3.5 g/dl (3.4-5.0); BLOOD UREA NITROGEN 25.5 mg/dL (7-18); CALCIUM 8.8 mg/dL (8.5-10.1)
[2021-10-31 10:35] LABS: CREATININE 0.8 mg/dL (0.55-1.3)
[2021-10-31 10:36] LABS: BILIRUBIN,TOTAL 0.6 mg/dL (0.2-1); TOT PROT 6.6 g/dl (6.4-8.2)
[2021-10-31] MEDS: BACITRACIN 0.9 GM PACKET TP SCH (16:02)
[2021-10-31] MEDS: MELATONIN 5 MG TABLETS PO SCH (22:19)
[2021-10-31] MEDS: THIAMINE HCL 100 MG TABLET (FP) PO SCH (22:19)
[2021-11-01 00:02] LABS: URINE APPEARANCE CLEAR; URINE BILIRUBIN NEGATIVE (NEGATIVE); URINE COLOR YELLOW; URINE GLUCOSE (UA) NEGATIVE (NEGATIVE); URINE KETONE TRACE (NEGATIVE); URINE LEUK ESTERASE NEGATIVE (NEGATIVE); URINE NITRITE NEGATIVE (NEGATIVE); URINE PROTEIN TRACE (NEGATIVE); URINE UROBILINOGEN 0.2 mg/dL (0.2-1.0)
[2021-11-01] MEDS: CLINDAMYCIN HCL 150 MG CAPSULE (FP) PO SCH ×3 (05:58→22:17)
[2021-11-01] MEDS: METHOCARBAMOL 500 MG TABLET PO PRN (05:58)
[2021-11-01] MEDS: cloNIDine HCL 0.1 MG TABLET PO PRN (06:00)
[2021-11-01] MEDS: diazePAM 5 MG TABLET PO SCH ×3 (06:00→22:17)
[2021-11-01] MEDS ORDERED: methaDONE HCL 10 MG TABLET (FOR DETOX USE ONLY) ONE (08:55)
[2021-11-01] MEDS: PRENATAL VITAMINS W/ FOLIC ACID TABLET (FP) PO SCH (10:27)
[2021-11-01] MEDS: NICOTINE 21 MG/24 HOURS TOPICAL PATCH TD SCH (10:28)
[2021-11-01] MEDS: LISINOPRIL 10 MG TABLET PO SCH (10:29)
[2021-11-01] MEDS: BACITRACIN 0.9 GM PACKET TP SCH (10:30)
[2021-11-01] MEDS: diazePAM 5 MG TABLET PO PRN (18:08)
[2021-11-01] MEDS: MELATONIN 5 MG TABLETS PO SCH (22:17)
[2021-11-01] MEDS: THIAMINE HCL 100 MG TABLET (FP) PO SCH (22:17)
[2021-11-02] MEDS: CLINDAMYCIN HCL 150 MG CAPSULE (FP) PO SCH ×3 (06:52→22:14)
[2021-11-02] MEDS: diazePAM 5 MG TABLET PO SCH ×2 (06:54→17:31)
[2021-11-02] MEDS ORDERED: methaDONE HCL 10 MG TABLET (FOR DETOX USE ONLY) PO ONE (10:00)
[2021-11-02] MEDS: BACITRACIN 0.9 GM PACKET TP SCH (10:34)
[2021-11-02] MEDS: NICOTINE 21 MG/24 HOURS TOPICAL PATCH TD SCH (10:35)
[2021-11-02] MEDS: LISINOPRIL 10 MG TABLET PO SCH (10:36)
[2021-11-02] MEDS: PRENATAL VITAMINS W/ FOLIC ACID TABLET (FP) PO SCH (10:36)
[2021-11-02] MEDS: diazePAM 5 MG TABLET PO PRN (22:14)
[2021-11-02] MEDS: THIAMINE HCL 100 MG TABLET (FP) PO SCH (22:14)
[2021-11-02] MEDS: MELATONIN 5 MG TABLETS PO SCH (22:14)
[2021-11-03 00:06] LABS: SARS-CoV-2 NAA Not Detected (Not Detected)
[2021-11-03] MEDS ORDERED: diazePAM 5 MG TABLET PO ONE (06:00)
[2021-11-03] MEDS: CLINDAMYCIN HCL 150 MG CAPSULE (FP) PO SCH ×3 (06:27→22:29)
[2021-11-03] MEDS ORDERED: methaDONE HCL 10 MG TABLET (FOR DETOX USE ONLY) ONE (09:46)
[2021-11-03] MEDS: PRENATAL VITAMINS W/ FOLIC ACID TABLET (FP) PO SCH (10:41)
[2021-11-03] MEDS: LISINOPRIL 10 MG TABLET PO SCH (10:41)
[2021-11-03] MEDS: BACITRACIN 0.9 GM PACKET TP SCH (10:41)
[2021-11-03] MEDS: NICOTINE 21 MG/24 HOURS TOPICAL PATCH TD SCH (10:41)
[2021-11-03] MEDS: THIAMINE HCL 100 MG TABLET (FP) PO SCH (22:29)
[2021-11-03] MEDS: MELATONIN 5 MG TABLETS PO SCH (22:29)
[2021-11-04] MEDS: CLINDAMYCIN HCL 150 MG CAPSULE (FP) PO SCH ×2 (08:06→13:45)
[2021-11-04] MEDS: LISINOPRIL 10 MG TABLET PO SCH ×2 (10:39→12:29)
[2021-11-04] MEDS: BACITRACIN 0.9 GM PACKET TP SCH (10:39)
[2021-11-04] MEDS: methaDONE HCL 10 MG TABLET (FOR DETOX USE ONLY) PO ONE ×2 (10:39→12:30)
[2021-11-04] MEDS: PRENATAL VITAMINS W/ FOLIC ACID TABLET (FP) PO SCH ×2 (10:39→12:29)
[2021-11-04] MEDS: NICOTINE 21 MG/24 HOURS TOPICAL PATCH TD SCH (10:41)
[2021-11-04] MEDS ORDERED: ONDANSETRON *ODT* 4 MG TABLET SL ONE (11:00)
[2021-11-04 13:12] VITALS: BP 134/90; PULSE 72; TEMP 97.7
== END 2021-11-04 17:04 | disposition home or self-care (01) | DRG 773 ==
LOC: YASAS 01:09 → Y3N 02:15
PROVIDERS: ADMIT Allergy & Immunology; ATTEND Surgery
PROC: HZ2ZZZZ Detoxification Services for Substance Abuse Treatment (ICD-10-PCS; principal; 2021-11-01)
DX: F11.23 Opioid dependence with withdrawal (principal); F10.230 Alcohol dependence with withdrawal, uncomplicated; F13.20 Sedative, hypnotic or anxiolytic dependence, uncomplicated; F14.20 Cocaine dependence, uncomplicated; F17.210 Nicotine dependence, cigarettes, uncomplicated; F19.24 Other psychoactive substance dependence with psychoactive substance-induced mood disorder; D64.9 Anemia, unspecified; I10 Essential (primary) hypertension; L03.113 Cellulitis of right upper limb; L03.114 Cellulitis of left upper limb; R79.89 Other specified abnormal findings of blood chemistry; Z91.19 Patient's noncompliance with other medical treatment and regimen
CPT/HCPCS: 36415; 80053; 81003; 85027; 86780; 93005; 93010; C9803-CS; J0735; Q0162; U0003; U0005

== ENCOUNTER 2022-06-17 16:16 | Inpatient (IN) | payer OTHER ==
[2022-06-17 18:07] VITALS: BMI 23.4
[2022-06-17] MEDS ORDERED: ACETAMINOPHEN 325 MG TABLET (FP) PO PRN ×2 (18:52)
[2022-06-17] MEDS ORDERED: IBUPROFEN 600 MG TABLET (FP) PO PRN (18:52)
[2022-06-17] MEDS ORDERED: DICYCLOMINE HCL 10 MG CAPSULE PO PRN (18:52)
[2022-06-17] MEDS ORDERED: NALOXONE HCL (KLOXXADO) 8 MG SPRAY NS PRN (18:52)
[2022-06-17] MEDS ORDERED: MAGNESIUM HYDROX 2400MG/30ML ORAL SUSPENSION 30 ML CUP PO PRN (18:52)
[2022-06-17] MEDS ORDERED: methaDONE HCL 10 MG TABLET (FOR DETOX USE ONLY) PO ONE (18:52)
[2022-06-17] MEDS ORDERED: NICOTINE 10 MG CARTRIDGE (INHALER) IH PRN (18:52)
[2022-06-17] MEDS ORDERED: MAG HYDROX/AL HYDROX/SIMETH 30 ML UNIT-DOSE CUP PO PRN (18:52)
[2022-06-17] MEDS ORDERED: POLYETHYLENE GLYCOL (HEALTHYLAX) 3350 17 GM PACKET PO PRN (18:52)
[2022-06-17] MEDS ORDERED: IBUPROFEN 400 MG TABLET (FP) PO PRN (18:52)
[2022-06-17] MEDS ORDERED: ONDANSETRON *ODT* 4 MG TABLET SL PRN (18:52)
[2022-06-17] MEDS ORDERED: METHOCARBAMOL 500 MG TABLET PO PRN (18:52)
[2022-06-17] MEDS ORDERED: BISMUTH SUBSALICYLATE 524 MG/30 ML PO PRN (18:52)
[2022-06-17] MEDS ORDERED: BENZOCAINE/MENTHOL (CHLORASEPTIC ) LOZENGE MM PRN (18:52)
[2022-06-17] MEDS ORDERED: hydrOXYzine PAMOATE 25 MG CAPSULE (FP) PO PRN (18:52)
[2022-06-17] MEDS ORDERED: cloNIDine HCL 0.1 MG TABLET PO PRN (18:52)
[2022-06-17] MEDS ORDERED: LOPERAMIDE HCL 2 MG CAPSULE PO PRN (18:52)
[2022-06-17] MEDS ORDERED: NICOTINE POLACRILEX 2 MG GUM BUC PRN (18:52)
[2022-06-17] MEDS: PRENATAL VITAMINS W/ FOLIC ACID TABLET (FP) PO SCH (19:45)
[2022-06-17] MEDS: LISINOPRIL 10 MG TABLET PO SCH (19:46)
[2022-06-17] MEDS ORDERED: MELATONIN 5 MG TABLETS PO SCH (22:00)
[2022-06-17] MEDS: THIAMINE HCL 100 MG TABLET (FP) PO SCH (22:42)
[2022-06-18] MEDS: PRENATAL VITAMINS W/ FOLIC ACID TABLET (FP) PO SCH (10:08)
[2022-06-18] MEDS: LISINOPRIL 10 MG TABLET PO SCH (10:09)
[2022-06-18 11:49] LABS: HEMOGLOBIN 11.9 GM/dL (11.7-16.9); MCHC 32.1 g/dl (32.0-35.9); MEAN CELL VOLUME 80.8 fl (80-96); MEAN PLT VOLUME 7.2 fl (7.5-11.1); PLATELET COUNT 317 10^3/uL (134-434); RBC 4.59 M/mm3 (4.00-5.60); RDW 15.5 % (11.9-15.9); WHITE BLOOD COUNT 7.9 K/mm3 (4.0-10.0)
[2022-06-18 11:58] LABS: BLOOD UREA NITROGEN 19.8 mg/dL (7-18); CALCIUM 8.8 mg/dL (8.5-10.1)
[2022-06-18 11:59] LABS: ALBUMIN 3.4 g/dl (3.4-5.0)
[2022-06-18 12:02] LABS: CREATININE 0.9 mg/dL (0.55-1.3)
[2022-06-18 12:03] LABS: BILIRUBIN,TOTAL 0.3 mg/dL (0.2-1); TOT PROT 6.9 g/dl (6.4-8.2)
[2022-06-18 12:49] LABS: HIV INTERPRETATION NEGATIVE (NEGATIVE)
[2022-06-18] MEDS: diazePAM 5 MG TABLET PO PRN (15:49)
[2022-06-18] MEDS ORDERED: SUVOREXANT 10 MG TABLET PO PRN (22:00)
[2022-06-18] MEDS: THIAMINE HCL 100 MG TABLET (FP) PO SCH (22:38)
[2022-06-19 05:29] VITALS: RESP 18
[2022-06-19] MEDS ORDERED: methaDONE HCL 10 MG TABLET (FOR DETOX USE ONLY) PO ONE (10:00)
[2022-06-19] MEDS: diazePAM 5 MG TABLET PO PRN (10:12)
[2022-06-19] MEDS: PRENATAL VITAMINS W/ FOLIC ACID TABLET (FP) PO SCH (10:12)
[2022-06-19] MEDS: LISINOPRIL 10 MG TABLET PO SCH (10:13)
[2022-06-19 13:03] VITALS: BP 144/89; PULSE 69; TEMP 96.9
[2022-06-21] MEDS ORDERED: methaDONE HCL 10 MG TABLET (FOR DETOX USE ONLY) PO ONE (10:00)
== END 2022-06-19 15:39 | disposition left against medical advice (07) | DRG 770 ==
LOC: YASAS 16:16 → Y6N 19:20
PROVIDERS: ADMIT Allergy & Immunology; ATTEND Surgery
PROC: HZ2ZZZZ Detoxification Services for Substance Abuse Treatment (ICD-10-PCS; principal; 2022-06-17)
DX: F11.23 Opioid dependence with withdrawal (principal); F14.20 Cocaine dependence, uncomplicated; F17.210 Nicotine dependence, cigarettes, uncomplicated; F19.280 Other psychoactive substance dependence with psychoactive substance-induced anxiety disorder; F19.282 Other psychoactive substance dependence with psychoactive substance-induced sleep disorder; F41.8 Other specified anxiety disorders; F32.A Depression, unspecified; I10 Essential (primary) hypertension; Z28.310 Unvaccinated for COVID-19; Z28.9 Immunization not carried out for unspecified reason; Z86.19 Personal history of other infectious and parasitic diseases; Z56.0 Unemployment, unspecified
CPT/HCPCS: 36415; 80053; 85027; 86780; 87389; C9803-CS; U0003; U0005

== ENCOUNTER 2022-10-07 21:02 | Emergency (ER) | payer OTHER ==
[2022-10-07 21:10] VITALS: BP 138/85; PULSE 84; RESP 18; TEMP 98.1; BMI 24.4
== END 2022-10-07 23:15 | disposition left against medical advice (07) ==
LOC: JER 21:02
DX: L03.114 Cellulitis of left upper limb (principal); L03.113 Cellulitis of right upper limb; M79.601 Pain in right arm; M79.602 Pain in left arm
CPT/HCPCS: 99281-25

== ENCOUNTER 2022-12-24 17:11 | Emergency (ER) | payer OTHER ==
[2022-12-24 17:17] VITALS: BP 142/86; PULSE 93; RESP 18; TEMP 98.7; BMI 25.1
[2022-12-24] MEDS ORDERED: PIPERACILLIN/TAZOB 3.375 GM 3.375 GM in DEXTROSE 5%-WATER - 50 ML IVPB ONE (18:38)
[2022-12-24] MEDS ORDERED: VANCOMYCIN 1 GM in D5W (PRE-DOCKED) 1,000 MG/250 ML (RESTRICTED TO ID ONLY IVPB ONE (18:38)
[2022-12-24] MEDS ORDERED: CLINDAMYCIN HCL 300 MG CAPSULE PO ONE (19:12)
[2022-12-24] MEDS ORDERED: CLINDAMYCIN HCL 150 MG CAPSULE (FP) ONE (19:13)
== END 2022-12-24 19:22 | disposition left against medical advice (07) ==
LOC: JER 17:11
DX: L03.114 Cellulitis of left upper limb (principal); F19.10 Other psychoactive substance abuse, uncomplicated; L98.499 Non-pressure chronic ulcer of skin of other sites with unspecified severity
CPT/HCPCS: 73090-TC-LT-FY; 73090-TC-RT-FY; 99283-25

== ENCOUNTER 2023-07-28 18:06 | Inpatient (IN) | payer OTHER ==
[2023-07-28] MEDS: SODIUM CHLORIDE 2,449 ML IV ONE (21:06)
[2023-07-28 21:07] LABS: BASO % 0.3 % (0-2.0); EOS % 0.1 % (0-4.5); HEMATOCRIT 30.2 % (35.4-49); HEMOGLOBIN 9.8 GM/dL (11.7-16.9); MCH 24.1 pg (25.7-33.7); MCHC 32.3 g/dl (32.0-35.9); MEAN CELL VOLUME 74.6 fl (80-96); MEAN PLT VOLUME 6.9 fl (7.5-11.1); MONO % 4.4 % (3.8-10.2); NEUT % 89.2 % (42.8-82.8); PLATELET COUNT 405 10^3/uL (134-434); RBC 4.05 M/mm3 (4.00-5.60); RDW 16.3 % (11.9-15.9); WHITE BLOOD COUNT 14.7 K/mm3 (4.0-10.0)
[2023-07-28 21:14] LABS: INR 1.44 (0.83-1.09); PROTHROMBIN TIME (PATIENT) 16.6 SEC (9.7-13.0)
[2023-07-28 21:17] LABS: ACTIVATED PTT 30.9 SECONDS (25.2-36.5)
[2023-07-28 21:32] LABS: POTASSIUM 3.4 mmol/L (3.5-5.1); VENOUS BASE EXCESS 3.3 mmol/L (-2-2); VENOUS O2 SATURATION 86.4 % (70-80); VENOUS PCO2 40.2 mmHg (38-52); VENOUS PH 7.452 (7.310-7.410)
[2023-07-28 21:34] LABS: ALBUMIN 2.9 g/dl (3.4-5.0); CALCIUM 8.4 mg/dL (8.5-10.1)
[2023-07-28 21:35] LABS: BLOOD UREA NITROGEN 15.2 mg/dL (7-18)
[2023-07-28 21:37] LABS: CREATININE 0.8 mg/dL (0.55-1.3)
[2023-07-28 21:39] LABS: BILIRUBIN,TOTAL 0.3 mg/dL (0.2-1); TOT PROT 7.5 g/dl (6.4-8.2)
[2023-07-28] MEDS: PIPERACILLIN/TAZOBACTAM 4.5 GM VIAL IVPB ONE (21:46)
[2023-07-28] MEDS ORDERED: PIPERACILLIN/TAZOB 4.5 GM 4.5 GM/100 ML BAG IVPB ONE (21:56)
[2023-07-28] MEDS: VANCOMYCIN 1,000 MG in DEXTROSE 5%-WATER - 250 ML IVPB ONE (23:07)
[2023-07-28] MEDS ORDERED: VANCOMYCIN 1 GRAM (PRE-DOCKED) 1,000 MG/250 ML BAG IVPB ONE (23:08)
[2023-07-28 23:32] LABS: EPI CELLS 3 /uL (0-25.1); HYALINE CASTS 0 /uL (0-3.1); PH,URINE 6.5 (5.0-8.0); URINE APPEARANCE CLEAR; URINE BACTERIA 2 /uL (0-1359); URINE BILIRUBIN NEGATIVE (NEGATIVE); URINE COLOR YELLOW; URINE GLUCOSE (UA) NEGATIVE (NEGATIVE); URINE KETONE NEGATIVE (NEGATIVE); URINE LEUK ESTERASE NEGATIVE (NEGATIVE); URINE NITRITE NEGATIVE (NEGATIVE); URINE PROTEIN 1+ (NEGATIVE); URINE RBC 29 /uL (0-23.9); URINE WBC 4 /uL (0-25.8)
[2023-07-29] MEDS: POTASSIUM CHLORIDE ORAL LIQUID 20 MEQ/15 ML PO ONE (01:01)
[2023-07-29] MEDS ORDERED: POTASSIUM CHLORIDE ORAL LIQUID 20 MEQ/15 ML ONE (01:03)
[2023-07-29] MEDS: PIPERACILLIN/TAZOB 3.375 GM 3.375 GM in DEXTROSE 5%-WATER - 50 ML IVPB SCH ×2 (05:58→19:30)
[2023-07-29] MEDS ORDERED: PIPERACILLIN/TAZOB 3.375 GM 3.375 GM/50 ML BAG IVPB ONE ×3 (05:58→15:05)
[2023-07-29] MEDS ORDERED: ENOXAPARIN NA (PORCINE) 40 MG/0.4 ML DISP.SYRIN SQ ONE (09:40)
[2023-07-29] MEDS: ENOXAPARIN NA (PORCINE) 40 MG/0.4 ML DISP.SYRIN SQ SCH (09:53)
[2023-07-29] MEDS ORDERED: NICOTINE 21 MG/24 HOURS TOPICAL PATCH ONE (09:55)
[2023-07-29] MEDS: NICOTINE 21 MG/24 HOURS TOPICAL PATCH TD SCH (09:57)
[2023-07-29 11:42] LABS: BASO % 0.5 % (0-2.0); EOS % 0.4 % (0-4.5); HEMATOCRIT 26.1 % (35.4-49); HEMOGLOBIN 8.6 GM/dL (11.7-16.9); LYMPH % 13.4 % (8-40); MCH 24.5 pg (25.7-33.7); MCHC 32.7 g/dl (32.0-35.9); MEAN CELL VOLUME 74.8 fl (80-96); MEAN PLT VOLUME 6.5 fl (7.5-11.1); MONO % 8.6 % (3.8-10.2); NEUT % 77.1 % (42.8-82.8); PLATELET COUNT 378 10^3/uL (134-434); RBC 3.49 M/mm3 (4.00-5.60); RDW 16.4 % (11.9-15.9); RETICULOCYTES 0.22 % (0.5-1.5); WHITE BLOOD COUNT 12.8 K/mm3 (4.0-10.0)
[2023-07-29] MEDS ORDERED: VANCOMYCIN/WATER 1250 MG 1,250 MG/250 ML BAG IVPB ONE (11:46)
[2023-07-29] MEDS: VANCOMYCIN/WATER 1250 MG 1,250 MG/250 ML BAG IVPB SCH ×2 (11:53→19:30)
[2023-07-29 12:22] LABS: POTASSIUM 3.5 mmol/L (3.5-5.1)
[2023-07-29 12:24] LABS: MAGNESIUM 1.9 mg/dL (1.8-2.4)
[2023-07-29 12:25] LABS: ALBUMIN 2.5 g/dl (3.4-5.0); BLOOD UREA NITROGEN 11.4 mg/dL (7-18); CALCIUM 8.1 mg/dL (8.5-10.1)
[2023-07-29 12:28] LABS: CREATININE 0.8 mg/dL (0.55-1.3); PHOSPHOROUS 1.9 mg/dL (2.5-4.9)
[2023-07-29 12:30] LABS: BILIRUBIN,TOTAL 0.2 mg/dL (0.2-1); TOT PROT 6.7 g/dl (6.4-8.2)
[2023-07-29] MEDS ORDERED: NAPH,MB-DB/K PH,MBDB POWDER PACKET ONE (14:54)
[2023-07-29] MEDS: NAPH,MB-DB/K PH,MBDB POWDER PACKET PO ONE (15:02)
[2023-07-29 16:26] VITALS: RESP 20; BMI 25.5
[2023-07-29] MEDS: CEFEPIME 1 GM in DEXTROSE 5%-WATER 100 ML IVPB SCH (18:10)
[2023-07-29] MEDS: VANCOMYCIN/WATER FOR INJ (PEG) 1,000 MG/200 ML BAG IVPB SCH (22:24)
[2023-07-30] MEDS ORDERED: BENZOCAINE/MENTHOL (CHLORASEPTIC ) LOZENGE MM PRN (10:19)
[2023-07-30] MEDS ORDERED: MAG HYDROX/AL HYDROX/SIMETH 30 ML UNIT-DOSE CUP PO PRN (10:19)
[2023-07-30] MEDS ORDERED: LORazepam 1 MG TABLET PO PRN (10:19)
[2023-07-30] MEDS ORDERED: ACETAMINOPHEN 325 MG TABLET (FP) PO PRN (10:19)
[2023-07-30] MEDS ORDERED: LOPERAMIDE HCL 2 MG CAPSULE PO PRN (10:19)
[2023-07-30] MEDS ORDERED: NALOXONE HCL 0.4 MG/ML VIAL IM PRN (10:19)
[2023-07-30] MEDS ORDERED: BISMUTH SUBSALICYLATE 524 MG/30 ML PO PRN (10:19)
[2023-07-30] MEDS ORDERED: guaiFENesin 600 MG TABLET.ER (FP) PO PRN (10:19)
[2023-07-30] MEDS ORDERED: POLYETHYLENE GLYCOL (HEALTHYLAX) 3350 17 GM PACKET PO PRN (10:19)
[2023-07-30] MEDS ORDERED: IBUPROFEN 400 MG TABLET (FP) PO PRN (10:19)
[2023-07-30] MEDS ORDERED: MAGNESIUM HYDROX 2400MG/30ML ORAL SUSPENSION 30 ML CUP PO PRN (10:19)
[2023-07-30] MEDS ORDERED: IBUPROFEN 600 MG TABLET (FP) PO PRN (10:19)
[2023-07-30] MEDS ORDERED: cloNIDine HCL 0.1 MG TABLET PO PRN (10:19)
[2023-07-30] MEDS ORDERED: DICYCLOMINE HCL 10 MG CAPSULE PO PRN (10:19)
[2023-07-30] MEDS ORDERED: METHOCARBAMOL 500 MG TABLET PO PRN (10:19)
[2023-07-30] MEDS ORDERED: BENZONATATE 200 MG CAPSULE PO PRN (10:19)
[2023-07-30] MEDS ORDERED: ONDANSETRON *ODT* 4 MG TABLET SL PRN (10:19)
[2023-07-30] MEDS ORDERED: hydrOXYzine PAMOATE 25 MG CAPSULE (FP) PO PRN (10:19)
[2023-07-30] MEDS ORDERED: NALOXONE HCL (KLOXXADO) 8 MG SPRAY NS PRN (10:19)
[2023-07-30] MEDS ORDERED: LORazepam 0.5 MG TABLET PO PRN (10:22)
[2023-07-30 11:37] LABS: HEMATOCRIT 27.4 % (35.4-49); MCH 24.6 pg (25.7-33.7); MCHC 32.9 g/dl (32.0-35.9); MEAN CELL VOLUME 74.9 fl (80-96); MEAN PLT VOLUME 6.6 fl (7.5-11.1); PLATELET COUNT 439 10^3/uL (134-434); RBC 3.66 M/mm3 (4.00-5.60); RDW 16.7 % (11.9-15.9); WHITE BLOOD COUNT 9.6 K/mm3 (4.0-10.0)
[2023-07-30 12:26] LABS: BLOOD UREA NITROGEN 13.3 mg/dL (7-18); CALCIUM 9.3 mg/dL (8.5-10.1); CREATININE 0.7 mg/dL (0.55-1.3); MAGNESIUM 2.3 mg/dL (1.8-2.4); PHOSPHOROUS 2.9 mg/dL (2.5-4.9)
[2023-07-30] MEDS: THIAMINE HCL 100 MG TABLET (FP) PO SCH (21:33)
[2023-07-30] MEDS: MELATONIN 5 MG TABLETS PO SCH (21:34)
[2023-07-31 07:50] VITALS: BP 140/88; PULSE 82; TEMP 97.3
[2023-07-31] MEDS: PRENATAL VITAMINS W/ FOLIC ACID TABLET (FP) PO SCH (09:54)
[2023-07-31 12:21] LABS: HEMATOCRIT 30.2 % (35.4-49); HEMOGLOBIN 9.8 GM/dL (11.7-16.9); MCH 24.6 pg (25.7-33.7); MCHC 32.3 g/dl (32.0-35.9); MEAN CELL VOLUME 76.2 fl (80-96); MEAN PLT VOLUME 6.9 fl (7.5-11.1); PLATELET COUNT 542 10^3/uL (134-434); RBC 3.96 M/mm3 (4.00-5.60); RDW 16.4 % (11.9-15.9); WHITE BLOOD COUNT 8.7 K/mm3 (4.0-10.0)
[2023-07-31 12:47] LABS: POTASSIUM 4.4 mmol/L (3.5-5.1)
[2023-07-31 12:49] LABS: BLOOD UREA NITROGEN 16.3 mg/dL (7-18)
[2023-07-31 12:52] LABS: CREATININE 0.6 mg/dL (0.55-1.3)
== END 2023-07-31 11:57 | disposition home or self-care (01) | DRG 383 ==
LOC: JER 18:06 → JERBED 07-29 00:17 → J8W 07-29 15:40
PROVIDERS: ADMIT Internal Medicine; ATTEND Internal Medicine
DX: L03.114 Cellulitis of left upper limb (principal); L03.113 Cellulitis of right upper limb; I10 Essential (primary) hypertension; L03.115 Cellulitis of right lower limb; F10.239 Alcohol dependence with withdrawal, unspecified; F19.10 Other psychoactive substance abuse, uncomplicated; D50.9 Iron deficiency anemia, unspecified; E87.6 Hypokalemia; F17.210 Nicotine dependence, cigarettes, uncomplicated
CPT/HCPCS: 0241U-QW; 36415; 71046-TC-FY; 73110-TC-LT-FY; 73130-TC-LT-FY; 73200-TC-RT; 73590-TC-LT-FY; 73610-TC-LT-FY; 73630-TC-LT; 73700-TC-RT; 80048; 80053; 80307; 81003; 82140; 82550; 82728; 82803; 83540; 83550; 83605; 83735; 84100; 84484; 85025; 85027; 85045; 85379; 85610; 85730; 86850; 86900; 86901; 87040; 87086; 93005; 93010; 93970-TC; 93971-TC; 99285-25

== ENCOUNTER 2024-04-19 14:56 | Observation (INO) | payer OTHER ==
[2024-04-19 17:36] LABS: EOS % 3.8 % (0-4.5); HEMOGLOBIN 10.7 GM/dL (11.7-16.9); LYMPH % 20.9 % (8-40); MCH 25.5 pg (25.7-33.7); MCHC 33.5 g/dl (32.0-35.9); MEAN CELL VOLUME 76.3 fl (80-96); MEAN PLT VOLUME 6.4 fl (7.5-11.1); MONO % 6.1 % (3.8-10.2); NEUT % 68.2 % (42.8-82.8); PLATELET COUNT 441 10^3/uL (134-434); RDW 15.8 % (11.9-15.9)
[2024-04-19 17:43] LABS: INR 1.08 (0.83-1.09); PROTHROMBIN TIME (PATIENT) 12.4 SEC (9.7-13.0)
[2024-04-19 17:45] LABS: ACTIVATED PTT 34.2 SECONDS (25.2-36.5)
[2024-04-19 18:00] LABS: POTASSIUM 4.1 mmol/L (3.5-5.1)
[2024-04-19 18:02] LABS: CALCIUM 9.2 mg/dL (8.5-10.1)
[2024-04-19 18:03] LABS: ALBUMIN 3.4 g/dl (3.4-5.0); BLOOD UREA NITROGEN 18.2 mg/dL (7-18)
[2024-04-19 18:06] LABS: CREATININE 0.7 mg/dL (0.55-1.3)
[2024-04-19 18:07] LABS: BILIRUBIN,TOTAL 0.2 mg/dL (0.2-1); TOT PROT 8.3 g/dl (6.4-8.2)
[2024-04-19] MEDS ORDERED: ACETAMINOPHEN INJECTION 100 ML ONE (19:08)
[2024-04-19] MEDS ORDERED: VANCOMYCIN 1 GRAM (PRE-DOCKED) 1,000 MG/250 ML BAG IVPB ONE (19:08)
[2024-04-19] MEDS: ACETAMINOPHEN 1000 MG/100 ML BAG IVPB ONE (19:36)
[2024-04-19] MEDS: VANCOMYCIN 1,000 MG in DEXTROSE 5%-WATER - 250 ML IVPB ONE (20:03)
[2024-04-19] MEDS: ENOXAPARIN NA (PORCINE) 40 MG/0.4 ML DISP.SYRIN SQ SCH (21:57)
[2024-04-19] MEDS ORDERED: hydrOXYzine PAMOATE 25 MG CAPSULE (FP) PO PRN (23:20)
[2024-04-19] MEDS ORDERED: DICYCLOMINE HCL 10 MG CAPSULE PO PRN (23:21)
[2024-04-19] MEDS ORDERED: ONDANSETRON 4 MG TABLET PO PRN (23:21)
[2024-04-19] MEDS ORDERED: METHOCARBAMOL 500 MG TABLET PO PRN (23:22)
[2024-04-19] MEDS ORDERED: LOPERAMIDE HCL 2 MG CAPSULE PO PRN (23:23)
[2024-04-19] MEDS ORDERED: ACETAMINOPHEN 325 MG TABLET (FP) PO PRN (23:24)
[2024-04-19] MEDS ORDERED: IBUPROFEN 400 MG TABLET (FP) PO PRN (23:24)
[2024-04-20 00:10] VITALS: RESP 18
[2024-04-20 01:42] VITALS: BMI 25.8
[2024-04-20] MEDS ORDERED: LORazepam 1 MG TABLET PO PRN (08:11)
[2024-04-20 09:42] LABS: HEMATOCRIT 33.4 % (35.4-49); HEMOGLOBIN 10.5 GM/dL (11.7-16.9); MCH 24.5 pg (25.7-33.7); MCHC 31.6 g/dl (32.0-35.9); MEAN CELL VOLUME 77.7 fl (80-96); MEAN PLT VOLUME 6.5 fl (7.5-11.1); PLATELET COUNT 439 10^3/uL (134-434); RDW 15.7 % (11.9-15.9); WHITE BLOOD COUNT 8.6 K/mm3 (4.0-10.0)
[2024-04-20 10:06] LABS: POTASSIUM 4.4 mmol/L (3.5-5.1)
[2024-04-20 10:08] LABS: CALCIUM 9.2 mg/dL (8.5-10.1)
[2024-04-20 10:09] LABS: ALBUMIN 3.1 g/dl (3.4-5.0); BLOOD UREA NITROGEN 14.3 mg/dL (7-18)
[2024-04-20 10:12] LABS: CREATININE 0.6 mg/dL (0.55-1.3)
[2024-04-20 10:13] LABS: BILIRUBIN,TOTAL 0.3 mg/dL (0.2-1); TOT PROT 7.7 g/dl (6.4-8.2)
[2024-04-20] MEDS: VANCOMYCIN PREMIX 1.5 GM 1,500 MG/300 ML BAG IVPB SCH (10:27)
[2024-04-20 11:13] LABS: EPI CELLS 3 /uL (0-25.1); HYALINE CASTS 1 /uL (0-3.1); PH,URINE 6.5 (5.0-8.0); URINE APPEARANCE CLEAR; URINE BACTERIA 6 /uL (0-1359); URINE BILIRUBIN NEGATIVE (NEGATIVE); URINE COLOR YELLOW; URINE GLUCOSE (UA) NEGATIVE (NEGATIVE); URINE KETONE NEGATIVE (NEGATIVE); URINE LEUK ESTERASE TRACE (NEGATIVE); URINE NITRITE NEGATIVE (NEGATIVE); URINE PROTEIN NEGATIVE (NEGATIVE); URINE RBC 37 /uL (0-23.9); URINE WBC 56 /uL (0-25.8)
[2024-04-20 14:52] VITALS: BP 126/87; PULSE 80; TEMP 98.8
[2024-04-20] MEDS ORDERED: VANCOMYCIN PREMIX 1.5 GM 1,500 MG/300 ML BAG IVPB SCH (19:00)
[2024-04-21] MEDS ORDERED: BISACODYL 5 MG TABLET.DR (FP) PO ONE (16:00)
[2024-04-21] MEDS ORDERED: PEG 3350/NA SULF BICARB CL/KCL 4000 ML SOLN.RECON PO ONE (17:00)
== END 2024-04-20 17:41 | disposition left against medical advice (07) ==
LOC: JER 14:56 → JERBED 19:37 → J8W 20:50
PROVIDERS: ADMIT Internal Medicine; ATTEND Nurse Practitioner Family
PROC: 3E033NZ Introduction of Analgesics, Hypnotics, Sedatives into Peripheral Vein, Percutaneous Approach (ICD-10-PCS; principal; 2024-04-19)
PROC: 3E023GC Introduction of Other Therapeutic Substance into Muscle, Percutaneous Approach (ICD-10-PCS; 2024-04-19)
PROC: 3E03329 Introduction of Other Anti-infective into Peripheral Vein, Percutaneous Approach (ICD-10-PCS; 2024-04-19)
DX: L03.818 Cellulitis of other sites (principal); F19.10 Other psychoactive substance abuse, uncomplicated; F10.21 Alcohol dependence, in remission; I10 Essential (primary) hypertension; E78.5 Hyperlipidemia, unspecified; Z86.19 Personal history of other infectious and parasitic diseases; Z87.442 Personal history of urinary calculi; F17.210 Nicotine dependence, cigarettes, uncomplicated
CPT/HCPCS: 36415; 76882-TC-50; 80053; 81003; 85025; 85027; 85610; 85651; 85730; 86140; 87040; 93005; 93010; 93971-TC; 96365; 96366; 96372; 96375; 99285-25; G0378; J0131